=== PATIENT | female | born 1955 | race Caucasian/White ===

== ENCOUNTER 2018-01-02 13:00 | Outpatient (RCR) | payer BC, SELFPAY ==
--- NOTE | 2017-12-13 15:32 | PTTR_ITS ---
DATE: 12/13/17 SUBJECTIVE: Cathy indicates that she continues to note good improvement being made with her right shoulder. Unfortunately, has had increased irritation in the left buttock over the past few days. Was in hopes of receiving dry needling today, but due to scheduling issues this was not a possibility. OBJECTIVE: Manual therapy: ([id number]). Mobs of the right glenohumeral jt while in supine. Mobs did include inferior and posterior glides, caudal and lateral distractions as well as P/AAROM throughout all planes. TFM was applied to the anterior cuff as well as prone position TP work throughout the upper traps, rhomboids and positional release to the posterior cuff. This was mildly sensitive upon palpation per subjective report. Brief TP work to the left piriformis and glute as well as PA mobs throughout the lumbar vertebrae at Grades 1 and 2 and supine position leg pull on the left at no charge. Therapeutic procedures ([id number]). * x See flow sheet: focus was on scap stabs and cuff strengthening, per protocol. * Verbal and tactile cues were provided throughout today's session for proper positioning and isolation of specific muscles. She did decline the need for cryotherapy at the end of today's session indicating she'd do so at home. Direct treatment time: 50 min. 10 min. of non billable time. Total treatment time: 60 min. SG/gc
--- NOTE | 2017-12-17 14:19 | PTTR_ITS ---
DATE: 12/17/17 SUBJECTIVE: Cathy reports her shoulder is holding up well, but her back is causing her more discomfort (sciatica in the left LE). Had a difficult time driving 20 minutes from her home to P.T. secondary to increasing left sided radiculopathy. She is going to contact Dr. Fuchs who told her he would be willing to order a MRI for her back. We discussed a consultation with [facility], as well as a possible consultation with [facility]. OBJECTIVE: Still has (+) dural tension testing with SLR and slump tests. She admits to not being very compliant with her extension exercises. She is hesitant to perform a prone press up secondary to shoulder irritation, but can certainly perform a prone on elbows without limitations. We discussed resumption of this. Will have her work on prone on elbows; 45 seconds x5 incorporating internal rotation of bilateral LEs to decrease muscle guarding through the glutes. Therapeutic procedures ([id number]). * x See flow sheet: She then rec'd integrated dry needling. She gave verbal consent to receive dry needling today. Homeostatic points used: bilateral superior cluneal 3, bilateral inferior gluteal 3, left saphenous and tibial 2, para vertebrals L3 through L5 2 ( this is bilaterally) Symptomatic points: 2 glute medius and 2 piriformis with 3 needles on the left. She also rec'd estim for needle activation, connecting left L3 to sural homeostatic point with a 2 as well as right L3 to L5 x8 minutes. She went on to complete a ther-ex routine focusing on rotator cuff strengthening. Still 4-/5 external rotation strength. 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 Direct treatment time: 15 min. Total treatment time: 30 min. Assessment: Shoulder is progressing well. Still some external rotation strength deficits, which is to be expected post up cuff repair. Internal rotation and flexion are improving with less scapular substitution, although remains present with end range flexion on the right. Needs to be more compliant with her HEP, which was discussed. Plan: Continue 2x per week this week decreasing to 1x per week starting next week. Will need to make sure we review her HEP well so she has a good understanding of her scapular stabilization and external rotation strengthening as we start weaning from formal P.T. MM/gc
--- NOTE | 2017-12-21 15:28 | PTTR_ITS ---
DATE: 12/21/17 SUBJECTIVE: Cathy indicates that she continues to do well with her right shoulder. Hasn't contacted Dr. Fuchs regarding the left hip pain. Has been doing better since having the dry needling last session, but admits she is limited in her activity level due to fear of re aggravating this area. OBJECTIVE: Manual therapy: ([id number]). Did receive mobs of the right glenohumeral joint while in supine. Mobs included inferior and posterior glides, caudal distractions and AAROM throughout all planes. PNF D1/D2 patterns were performed AA x10 repetitions each as well as positional release techniques to the posterior cuff. TP work to the upper traps, rhomboids and brief TFM to the anterior cuff were also performed. Therapeutic procedures ([id number]). * x HEP review: * x See flow sheet: focus was on scapular stabilization and cuff strengthening per rotator cuff protocol Patient will transition to 1x per week P.T. services. She does appear to have a good understanding of her HEP. Verbal and tactile cues were provided throughout today's session for proper positioning and isolation of specific muscles. Ended with cryotherapy x10 min. to the right shoulder while seated at no charge. Direct treatment time: 50 minutes. Total treatment time: 60 minutes. SG/gc
--- NOTE | 2017-12-25 10:00 | PTTR_ITS ---
DATE: 12/25/17 SUBJECTIVE: Arrived to dept a day early indicating she mixed up her appointment days, but asked to be seen due to extreme left hip pain which came back on Sunday for no known reason. Dr. Fuchs is on vacation, so has requested that Dr. Blackmon order MRI of low back / left hip due to this being the original plan with Dr. Fuchs. States that Dr. Blackmon is in agreement with this plan and will be in touch with Cathy regarding MRI date. OBJECTIVE: Manual therapy: ([id number]). Began session with left leg pulls in supine and prone STM throughout the left low back and glut/ piriformis regions. Utilized tendon massage along the lower thoracic / lumbar vertebrae, iliac crest and sacral border / posterior greater trochanter regions. TPM / PRT to left piriformis, glut med / max and QL with care taken to avoid radicular symptoms in left hamstring region. Mobilization of right chela-hum jt while in supine consisting of inferior / posterior glides, caudal and lateral distraction and P/AA/AROM throughout all planes. Performed TFM to anterior cuff, PRT to posterior cuff and brief TPM to upper traps / lev scap. Applied Kinesio tape to left buttock and hamstring region for sciatic pain while in standing. (2 full strips) Therapeutic procedures ([id number]). * x See flow sheet: Focus on rotator cuff protocol. Performed 15 minutes of wellness with assistive personnel at no charge. * x Provided skilled instruction in proper exercise performance * x Provided skilled manual cues to facilitate proper muscle recruitment and/ or movement pattern * x Electrical Stim Unattended - [id number]: Received IFC with spot cold to left buttock and low back with global MHP to remaining mid to low back x 15 minutes while in prone. To let us know if Kinesio tape was helpful. Will educate patient's in application of taping if beneficial. Patient is to remove tape in 2-3 days to avoid skin irritation. Ended session with cryotherapy x 10 minutes to right shoulder while in supine with legs on wedge pillow. Continue with 1x per week PT visits. Direct treatment time: 45 minutes Total treatment time: 95 minutes
--- NOTE | 2018-01-01 10:21 | NT_ITS ---
Patient was phoned today as she missed her appointment. When she stopped by the other day to review her POC she vocalized she thought her appointment was on Sunday, therefore likely did not show up because she thought her appointment wasn't til tomorrow. DULCE/gc
--- NOTE | 2018-01-02 13:00 | NT_ITS ---
01/02/18 Began MSP with client today for continued strengthening of Right shoulder / UE. Instructed in exercise set ups and documentation of exercises., as per discussion with supervising PT. MSP to be performed for 1 month. Patient is seeing Dr. Fuchs on . Given written instructions for upgraded HEP, see copy in client's chart. Continuing to await insurance authorization for MRI of back, but still very uncomfortable with left hip. Bethany Jordan, SKILLS AUDITOR
== END 2018-01-11 23:59 | disposition home or self-care (01) ==
LOC: PT 13:00
PROVIDERS: PCP Family Medicine; Referring Provider Physician Assistant; Visit Provider Physician Assistant
DX: M54.41 Lumbago with sciatica, right side (principal); M51.16 Intervertebral disc disorders with radiculopathy, lumbar region; M75.111 Incomplete rotator cuff tear or rupture of right shoulder, not specified as traumatic; M19.011 Primary osteoarthritis, right shoulder
CPT/HCPCS: 97014; 97110; 97140

== ENCOUNTER → 2018-01-09 01:48 | Outpatient (CLI) | payer BC, SELFPAY ==
--- NOTE | 2018-01-09 14:20 | DI.REPORT_ITS ---
SYMPTOMS/DIAGNOSIS: LEFT LOWER BACK AND LEFT LEG PAIN, LUMBAR RADICULOPATHY, M54.16, NO IMPROVEMENT S/P PHYSICAL THERAPY LUMBAR MRI: T1 and T2 sagittal, and T1 STIR sagittal, and T1 axial, and T2 axial and T2 axial MSMA pulse sequences were performed. The bony signal is normal. At T12- L1, the disc is intact with no evidence of protrusion. The facet joints are well maintained. There is no evidence of spinal stenosis. At L1-2, there disc is intact. The facet joints are well maintained. There is no evidence of spinal stenosis. At L2-3, there is no evidence of a disc herniation. The facet joints are intact. There is no evidence of spinal stenosis. At L3-4, diminished disc signal would be consistent with partial desiccation. There is perhaps a minimal disc bulge. Mild facet joint degenerative changes are demonstrated and there is no evidence of spinal stenosis. At L4-5, there is slight disc space narrowing and diminished disc signal consistent with partial desiccation. There is no evidence of a disc herniation. Prominence of the ligamentum flavum is identified and there are moderately severe facet joint degenerative changes. There is no evidence of significant spinal stenosis. At L5-S1, there appears to be a small left-sided disc herniation with at least partial effacement of the left lateral recess and compression of the adjacent S1 nerve root. There is severe facet joint DJD. There is no evidence of central or right foraminal stenosis. There is no intrinsic abnormality involving the lower dorsal cord, conus or filum terminale. SUMMARY: There is evidence of degenerative disc disease as described above and there is a small left-sided L5-S1 disc herniation with resultant moderate left foraminal stenosis.
== END ==
PROVIDERS: PCP Family Medicine; Visit Provider Family Medicine
DX: M54.16 Radiculopathy, lumbar region (principal); M51.16 Intervertebral disc disorders with radiculopathy, lumbar region
CPT/HCPCS: 72148

== ENCOUNTER 2018-01-19 13:12 | Emergency (ER) | payer BC, SELFPAY ==
[2018-01-19 13:20] VITALS: BP 159/79; PULSE 80; RESP 16; TEMP 36.5
--- NOTE | 2018-01-19 15:32 | W.ED.GENAD ---
Discharge Plan Disposition Patient Disposition: HOME Condition: Fair Discharge Details Chief Complaint: Nk/Back Pain Clinical Impression: Sciatica Reason For Visit: sciatica pain Primary Care Provider: Allie Blackmon ED Provider: Teagan Ma Home Meds and New Rx's Prescriptions: New oxycodone 5 mg capsule 5 mg PO Q6H PRN (Reason: pain) Qty: 6 RF: 0 prednisone 20 mg tablet 40 mg PO DAILY Qty: 10 RF: 0 Continue chlorthalidone 25 MG tablet 1 tab PO DAILY Qty: 90 RF: 12 polyethylene glycol 3350 [Miralax] 17 GM powder in packet 17 g PO DAILY PRNQty: 255 RF: 0 venlafaxine [Effexor XR] 150 MG capsule,extended release 24hr 150 mg PO DAILY Qty: 90 RF: 12 budesonide-formoterol [Symbicort] 10.2 GM HFA aerosol inhaler 2 puff Inhalation DAILY Qty: 3 RF: 12 gabapentin 300 MG capsule 300 mg PO HS Qty: 90 RF: 11 metformin 500 MG tablet,ER martha.retention 24 hr 500 mg PO BID Qty: 60 RF: 11 ibuprofen 600 MG tablet 600 mg PO TID Qty: 30 RF: 1 oxycodone 5 MG capsule 5 mg PO HS Qty: 14 RF: 0 acetaminophen [Acetaminophen Extra Strength] 500 MG tablet 1,000 mg PO Q8H PRN PRNQty: 60 RF: 3 acetaminophen [Acetaminophen Extra Strength] 500 mg Tablet 1,000 mg PO PRN PRNRF: 0 Discharge Instructions Instructions: Sciatica (ED) Additional Instructions: Encourage hydration. Continue with home exercises advised by physical therapy. Please continue with topical options to help with her discomfort. Remains Tylenol and/or ibuprofen as needed for discomfort. You may take 1000 mg of Tylenol every 6 hours with a max of 4000 mg daily. You may take 600 milligrams of ibuprofen every 6 hours. Oxycodone as prescribed. Please keep this in a safe place. Take only as directed. Begin prednisone daily as prescribed. If you develop fever/chills, increased pain, change in sensation of her extremities, change in bladder or bowel habits or other new/worsening symptoms please seek care urgently once again. Otherwise, please follow-up with pain management as previously scheduled as well as primary care Referrals: Allie Blackmon MD, [place] [Primary Care Provider] - Discharge Data Discharge Date/Time-TO BE ENTERED AT DEPARTURE: 01/19/18 16:15 Medical Decision Making MDM Narrative Medical decision making narrative: Patient presents today with chief complaint of left sciatic pain. Patient is followed by Dr. sanches 10. I did review the PDN P. In the past year, patient has received 2 prescriptions for oxycodone. 1 [address] hyatt recently as was reported by the patient. The other was postsurgical from the spring with Dr. Fuchs. On exam, patient does appear uncomfortable. She is listing to the right and preferring to hold the left leg slightly elevated to help with her discomfort. I was able to exacerbate her discomfort with palpation under the left gluteus well as the left buttock. She reports that this caused more shooting motion discomfort and altered sensation in the posterior aspect of the leg. No saddle paresthesias. She has good strength in the left lower extremity compared to the contralateral side. She denies any incontinence. Denies any feelings of retention. No recent trauma. No fevers or chills. Patient has had MRI showing pathology impinging on her left sciatic nerve per patient report. Patient is noted to be slightly hypertensive with a blood pressure 159/79, otherwise the patient vital signs are within normal limits. Took ibuprofen at 11:00 today, Tylenol at 07 30. Patient has history of hypertension, GERD, COPD, JESSICA We will give the patient IM Dilaudid and oral Tylenol. After reviewing LIEUTENANT SHIFT SUPERVISOR and evaluated the patient, I feel that a repeat dosing of her oxycodone is appropriate at this time. I also gave her prescription for steroids. Patient does report that she did feel improved after steroids in September 2017. She has not been reduced since then. Does report that she did feel slightly improved for a few weeks following. Patient I discussed the risk/benefits of steroids as well as narcotics. She is given strict usage precautions. She signed narcotic form. She will be prescribed steroids. Encouraged hydration and that she continue with PT exercises. Advised she keep appiontment this week with pain management. All of her questions and concerns were addressed, she is in agreement with this plan. HPI - General Adult General Mode of arrival: ambulatory. Date/Time Provider Initiated Documentation: 01/19/18 14:04. Limitations to Documentation: no limitations. Information obtained by: patient. HPI Narrative: Patient is a 62-year-old female presenting today with chief complaint of left-sided sciatica pain. Patient has been followed by her primary care for this since August. Reports has been waxing and waning but has been fairly steady over the past 8 weeks. She reports she has tried physical therapy, dry needle, TENS unit, muscle relaxers, steroids, Tylenol, ibuprofen. It was most recently in oxycodone which she found quite helpful. Reports that she has run out of this. Patient has an appointment upcoming with pain management this week. She also has referral sent to [facility] to speak with cardiac exercise specialist. However, she reports that aspect today is scheduling up to February for new patients. She reports that she did undergo an MRI which showed L5-S1 disc protrusion onto the left sciatic nerve. Reports that the radiating pain goes down the left buttock into the left calf. States that this morning it was into the left foot but that at this time it is back up towards the calf. She denies any altered sensation. Denies any change in bowel or bladder habits. She does report that she has been trying to keep her stools quite soft sitting for prolonged times in the toilet does increase her discomfort. Denies any fevers or chills. No recent trauma. Related Data Home Medications Medication Instructions Recorded Confirmed polyethylene glycol 3350 [Miralax] 17 g PO DAILY PRN #255 gm 11/08/17 01/19/18 acetaminophen [Acetaminophen Extra 1,000 mg PO PRN PRN 01/19/18 01/19/18 Strength] Previous Rx's Medication Instructions Recorded acetaminophen [Acetaminophen Extra 1,000 mg PO Q8H PRN PRN #60 tablet 08/28/17 Strength] oxycodone 5 mg PO Q6H PRN #6 cap 01/19/18 prednisone 40 mg PO DAILY #10 tab 01/19/18 Allergies Allergy/AdvReac Type Severity Reaction Status Date / Time No Known Allergies Allergy Unverified 01/19/18 13:28 General Stated Complaint: Nk/Back Pain JUSTYNA: 4 Review of Systems Constitutional Reports as per HPI, Denies chills, Denies fever(s), Denies headache(s) and Denies increased appetite Eyes Patient Denies change in vision ENT Denies headache(s) Cardiovascular Denies chest pain, Denies chest pain with activity, Denies diaphoresis, Denies edema and Denies dyspnea Respiratory Denies cough and Denies dyspnea Gastrointestinal Reports system reviewed and no additional complaints, except as docu Genitourinary Reports as per HPI, Denies dysuria, Denies flank pain, Denies urinary incontinence, Denies urinary hesitancy and Denies urinary urgency Musculoskeletal Reports as per HPI, Reports abnormal gait (-antalgic gait), Denies numbness and Denies tingling Integumentary/Breasts Denies rash Neurologic Reports as per HPI, Reports abnormal gait (-antalgic gait), Denies headache(s), Denies numbness, Reports radicular pain and Denies tingling PFSH Family History Mother Diabetes Essential hypertension Dementia Depression Heart disease Father Diabetes Essential hypertension Heart disease Brother No problems noted. Brother Essential hypertension Depression Hyperlipidemia Grandmother Diabetes Essential hypertension Heart disease Brother Essential hypertension Heart disease Grandfather No problems noted. Grandfather Heart disease Grandmother Cerebrovascular accident Son No problems noted. Son Heart disease Mental disorder Brother Heart disease Brother No problems noted. Medical History COPD (chronic obstructive pulmonary disease) GERD (gastroesophageal reflux disease) HTN (hypertension) JESSICA (obstructive sleep apnea) Social History Smoking/Tobacco Use Status: Former Tobacco Use Surgical History Arthroscopy, Shoulder Biopsy of breast Colonoscopy - MAC (01/28/16) Hysterectomy, Laproscopic (~1980) Oophrectomy, Left Exam Const General: cooperative, healthy appearing, well developed and acute distress (patient appears uncomfortable, is leaning to the right and keeping weight off of the left foot) Nutritional Appearance: overweight Orientation: alert Neck Neck: normal visual inspection and full ROM Resp Effort & Inspection: normal respiratory effort, able to speak in complete sentences and no respiratory distress Auscultation: clear to auscultation bilaterally Cardio Rate: regular rate Rhythm: regular rhythm Heart Sounds: S1 normal and S2 normal GI Inspection: normal to inspection Palpation: soft, not firm, no guarding, not rigid and nontender Back/Spine/Pelvis Back: no CVA tenderness, No mass, No warmth, No ecchymosis, back tenderness (Patient has discomfort with palpation primarily of the low lumbar and sacral area of the spine. Pain is worse with palpation over the left gluteus. Palpation under the left gluteal fold increases radiating symptoms.) and No Boggs-Nair sign present Cervical Spine: normal cervical lordosis Thoracic/Lumbar Spine: No mass and No thoraco-lumbar spasm Pelvis: no pain with anterior-posterior compression, no buttock ecchymosis, buttock tenderness (as above) on the left and no buttock swelling Sacroiliac joints: on the left tender to palpation Sacrum: no ecchymosis, no erythema, no swelling and tenderness Coccyx: no swelling Skin General skin exam: no rashes or lesions noted Neuro General: alert and awake Cognition: normal cognition Speech: speech normal Gait: antalgic Motor: muscle tone normal throughout and strength 5/5 throughout (5/5 in lower extremities) Sensory Exam: no sensory deficits noted (no saddle paresthesias noted) Extrem General: normal to inspection Psych Appearance: grossly normal and well kempt Mental Status: mental status grossly normal Speech and Movement: speech and movement normal Mood: congruent mood Affect: normal affect Attitude: cooperative Thought Process: normal Course Vital Signs Temperature 36.5 C 01/19/18 13:20 Pulse 80 01/19/18 13:20 Respiratory Rate 16 01/19/18 13:20 Blood Pressure 159/79 H 01/19/18 13:20 Temperature 36.5 C 01/19/18 13:20 Pulse 80 01/19/18 13:20 Respiratory Rate 16 01/19/18 13:20 Blood Pressure 159/79 H 01/19/18 13:20
--- NOTE | 2018-01-19 15:37 | ED.GENADUL_ITS ---
Discharge Plan Disposition Patient Disposition: HOME Condition: Fair Discharge Details Chief Complaint: Nk/Back Pain Clinical Impression: Sciatica Reason For Visit: sciatica pain Primary Care Provider: Allie Blackmon ED Provider: Teagan Ma Home Meds and New Rx's Prescriptions: New oxycodone 5 mg capsule 5 mg PO Q6H PRN (Reason: pain) Qty: 6 RF: 0 prednisone 20 mg tablet 40 mg PO DAILY Qty: 10 RF: 0 Continue chlorthalidone 25 MG tablet 1 tab PO DAILY Qty: 90 RF: 12 polyethylene glycol 3350 [Miralax] 17 GM powder in packet 17 g PO DAILY PRNQty: 255 RF: 0 venlafaxine [Effexor XR] 150 MG capsule,extended release 24hr 150 mg PO DAILY Qty: 90 RF: 12 budesonide-formoterol [Symbicort] 10.2 GM HFA aerosol inhaler 2 puff Inhalation DAILY Qty: 3 RF: 12 gabapentin 300 MG capsule 300 mg PO HS Qty: 90 RF: 11 metformin 500 MG tablet,ER martha.retention 24 hr 500 mg PO BID Qty: 60 RF: 11 ibuprofen 600 MG tablet 600 mg PO TID Qty: 30 RF: 1 oxycodone 5 MG capsule 5 mg PO HS Qty: 14 RF: 0 acetaminophen [Acetaminophen Extra Strength] 500 MG tablet 1,000 mg PO Q8H PRN PRNQty: 60 RF: 3 acetaminophen [Acetaminophen Extra Strength] 500 mg Tablet 1,000 mg PO PRN PRNRF: 0 Discharge Instructions Instructions: Sciatica (ED) Additional Instructions: Encourage hydration. Continue with home exercises advised by physical therapy. Please continue with topical options to help with her discomfort. Remains Tylenol and/or ibuprofen as needed for discomfort. You may take 1000 mg of Tylenol every 6 hours with a max of 4000 mg daily. You may take 600 milligrams of ibuprofen every 6 hours. Oxycodone as prescribed. Please keep this in a safe place. Take only as directed. Begin prednisone daily as prescribed. If you develop fever/chills, increased pain, change in sensation of her extremities , change in bladder or bowel habits or other new/worsening symptoms please seek care urgently once again. Otherwise, please follow-up with pain management as previously scheduled as well as primary care Referrals: Allie Blackmon MD, [place] [Primary Care Provider] - Discharge Data Discharge Date/Time-TO BE ENTERED AT DEPARTURE: 01/19/18 16:15 Medical Decision Making MDM Narrative Medical decision making narrative: Patient presents today with chief complaint of left sciatic pain. Patient is followed by Dr. sanches 10. I did review the PDN P. In the past year, patient has received 2 prescriptions for oxycodone. [address] hyatt recently as was reported by the patient. The other was postsurgical from the spring with Dr. Fuchs. On exam, patient does appear uncomfortable. She is listing to the right and preferring to hold the left leg slightly elevated to help with her discomfort. I was able to exacerbate her discomfort with palpation under the left gluteus well as the left buttock. She reports that this caused more shooting motion discomfort and altered sensation in the posterior aspect of the leg. No saddle paresthesias. She has good strength in the left lower extremity compared to the contralateral side. She denies any incontinence. Denies any feelings of retention. No recent trauma. No fevers or chills. Patient has had MRI showing pathology impinging on her left sciatic nerve per patient report. Patient is noted to be slightly hypertensive with a blood pressure 159/79, otherwise the patient vital signs are within normal limits. Took ibuprofen at 11:00 today, Tylenol at 07 30. Patient has history of hypertension, GERD, COPD, JESSICA We will give the patient IM Dilaudid and oral Tylenol. After reviewing [facility] and evaluated the patient, I feel that a repeat dosing of her oxycodone is appropriate at this time. I also gave her prescription for steroids. Patient does report that she did feel improved after steroids in September 2017. She has not been reduced since then. Does report that she did feel slightly improved for a few weeks following. Patient I discussed the risk/ benefits of steroids as well as narcotics. She is given strict usage precautions. She signed narcotic form. She will be prescribed steroids. Encouraged hydration and that she continue with PT exercises. Advised she keep appiontment this week with pain management. All of her questions and concerns were addressed, she is in agreement with this plan. HPI - General Adult General Mode of arrival: ambulatory . Date/Time Provider Initiated Documentation: 01/19/18 14:04 . Limitations to Documentation: no limitations . Information obtained by: patient . HPI Narrative: Patient is a 62-year-old female presenting today with chief complaint of left-sided sciatica pain. Patient has been followed by her primary care for this since August. Reports has been waxing and waning but has been fairly steady over the past 8 weeks. She reports she has tried physical therapy, dry needle, TENS unit, muscle relaxers, steroids, Tylenol, ibuprofen. It was most recently in oxycodone which she found quite helpful. Reports that she has run out of this. Patient has an appointment upcoming with pain management this week. She also has referral sent to [facility] to speak with telecommunications specialist. However, she reports that aspect today is scheduling up to February for new patients. She reports that she did undergo an MRI which showed L5-S1 disc protrusion onto the left sciatic nerve. Reports that the radiating pain goes down the left buttock into the left calf. States that this morning it was into the left foot but that at this time it is back up towards the calf. She denies any altered sensation. Denies any change in bowel or bladder habits. She does report that she has been trying to keep her stools quite soft sitting for prolonged times in the toilet does increase her discomfort. Denies any fevers or chills. No recent trauma. Related Data Home Medications Medication Instructions Recorded Confirmed polyethylene glycol 3350 [Miralax] 17 g PO DAILY PRN #255 gm 11/08/17 01/19/18 acetaminophen [Acetaminophen Extra 1,000 mg PO PRN PRN 01/19/18 01/19/18 Strength] Previous Rx's Medication Instructions Recorded acetaminophen [Acetaminophen Extra 1,000 mg PO Q8H PRN PRN #60 tablet 08/28/17 Strength] oxycodone 5 mg PO Q6H PRN #6 cap 01/19/18 prednisone 40 mg PO DAILY #10 tab 01/19/18 Allergies Allergy/AdvReac Type Severity Reaction Status Date / Time No Known Allergies Allergy Unverified 01/19/18 13:28 General Stated Complaint: Nk/Back Pain JUSTYNA: 4 Review of Systems Constitutional Reports as per HPI, Denies chills, Denies fever(s), Denies headache(s) and Denies increased appetite Eyes Patient Denies change in vision ENT Denies headache(s) Cardiovascular Denies chest pain, Denies chest pain with activity, Denies diaphoresis, Denies edema and Denies dyspnea Respiratory Denies cough and Denies dyspnea Gastrointestinal Reports system reviewed and no additional complaints, except as docu Genitourinary Reports as per HPI, Denies dysuria, Denies flank pain, Denies urinary incontinence, Denies urinary hesitancy and Denies urinary urgency Musculoskeletal Reports as per HPI, Reports abnormal gait (-antalgic gait), Denies numbness and Denies tingling Integumentary/Breasts Denies rash Neurologic Reports as per HPI, Reports abnormal gait (-antalgic gait), Denies headache(s), Denies numbness, Reports radicular pain and Denies tingling PFSH Family History Mother Diabetes Essential hypertension Dementia Depression Heart disease Father Diabetes Essential hypertension Heart disease Brother No problems noted. Brother Essential hypertension Depression Hyperlipidemia Grandmother Diabetes Essential hypertension Heart disease Brother Essential hypertension Heart disease Grandfather No problems noted. Grandfather Heart disease Grandmother Cerebrovascular accident Son No problems noted. Son Heart disease Mental disorder Brother Heart disease Brother No problems noted. Medical History COPD (chronic obstructive pulmonary disease) GERD (gastroesophageal reflux disease) HTN (hypertension) JESSICA (obstructive sleep apnea) Social History Smoking/Tobacco Use Status: Former Tobacco Use Surgical History Arthroscopy, Shoulder Biopsy of breast Colonoscopy - MAC (01/28/16) Hysterectomy, Laproscopic (~1980) Oophrectomy, Left Exam Const General: cooperative, healthy appearing, well developed and acute distress ( patient appears uncomfortable, is leaning to the right and keeping weight off of the left foot) Nutritional Appearance: overweight Orientation: alert Neck Neck: normal visual inspection and full ROM Resp Effort & Inspection: normal respiratory effort, able to speak in complete sentences and no respiratory distress Auscultation: clear to auscultation bilaterally Cardio Rate: regular rate Rhythm: regular rhythm Heart Sounds: S1 normal and S2 normal GI Inspection: normal to inspection Palpation: soft, not firm, no guarding, not rigid and nontender Back/Spine/Pelvis Back: no CVA tenderness, No mass, No warmth, No ecchymosis, back tenderness ( Patient has discomfort with palpation primarily of the low lumbar and sacral area of the spine. Pain is worse with palpation over the left gluteus. Palpation under the left gluteal fold increases radiating symptoms.) and No Boggs -Nair sign present Cervical Spine: normal cervical lordosis Thoracic/Lumbar Spine: No mass and No thoraco-lumbar spasm Pelvis: no pain with anterior-posterior compression, no buttock ecchymosis, buttock tenderness (as above) on the left and no buttock swelling Sacroiliac joints: on the left tender to palpation Sacrum: no ecchymosis, no erythema, no swelling and tenderness Coccyx: no swelling Skin General skin exam: no rashes or lesions noted Neuro General: alert and awake Cognition: normal cognition Speech: speech normal Gait: antalgic Motor: muscle tone normal throughout and strength 5/5 throughout (5/5 in lower extremities) Sensory Exam: no sensory deficits noted (no saddle paresthesias noted) Extrem General: normal to inspection Psych Appearance: grossly normal and well kempt Mental Status: mental status grossly normal Speech and Movement: speech and movement normal Mood: congruent mood Affect: normal affect Attitude: cooperative Thought Process: normal Course Vital Signs Temperature 36.5 C 01/19/18 13:20 Pulse 80 01/19/18 13:20 Respiratory Rate 16 01/19/18 13:20 Blood Pressure 159/79 H 01/19/18 13:20 Temperature 36.5 C 01/19/18 13:20 Pulse 80 01/19/18 13:20 Respiratory Rate 16 01/19/18 13:20 Blood Pressure 159/79 H 01/19/18 13:20
[2018-01-19] MEDS: HYDROmorphone 2 MG/ML VIAL 1 MG IM (15:40)
[2018-01-19] MEDS: Acetaminophen 500 MG TAB 1000 MG PO (15:45)
== END 2018-01-19 16:15 | disposition home or self-care (01) ==
PROVIDERS: Emergency Provider Physician Assistant; PCP Family Medicine
DX: M54.42 Lumbago with sciatica, left side (principal); I10 Essential (primary) hypertension; J44.9 Chronic obstructive pulmonary disease, unspecified; Z87.891 Personal history of nicotine dependence
CPT/HCPCS: 96372; 99284

== ENCOUNTER 2018-03-19 12:12 | Emergency (ER) | payer BC, SELFPAY ==
[2018-03-19 12:21] VITALS: BP 151/87; PULSE 97; RESP 20; TEMP 36.7; O2SAT 96
[2018-03-19 12:44] LABS: Bilirubin Negative (Negative); Blood Small (Negative); Clarity Clear; Glucose Negative (Negative); Ketones Negative (Negative); Leukocyte Esterase Negative (Negative); Nitrite Negative (Negative); Urobilinogen 0.2 EU/dL (Up TO 0.2); pH 6.5 (5-8)
[2018-03-19 12:58] LABS: Bacteria Moderate HPF (Negative); C & S Indicated? No/Sq. Contamination; Casts Negative LPF (Negative); Crystals Negative HPF (Negative); Epithelial Cells Moderate HPF (Negative); Mucus Trace (Negative); RBC 0-2 (0-2); WBC 0-2 HPF (0-5)
[2018-03-19 13:03] LABS: Abs Immature Grans 0.04 k/cumm (0.0-0.09); Absolute Basophil Count 0.03 k/cumm (0.0-0.2); Absolute Eosinophil Count 0.31 k/cumm (0.0-0.7); Absolute Lymphocyte Count 2.34 k/cumm (1.2-3.4); Absolute Monocyte Count 0.89 k/cumm (0.11-0.7); Basophils % 0.2; Eosinophils % 2.3; HCT 43.3 % (36.0-46.0); HGB 14.1 g/dL (12.0-15.5); Immature Grans % 0.3; Lymphocytes % 17.6; Mean Corp. HGB Concentration 32.6 g/dL (32.0-36.0); Mean Corpuscular Hemoglobin 30.5 pg (27.0-33.0); Mean Corpuscular Volume 93.7 fL (80-95); Mean Platelet Volume 10.3 fL (8.0-11.0); Monocytes % 6.7; Neutrophils % 72.9; Platelet Count 372 x1000/uL (130-400); RBC 4.62 m/cumm (4.00-5.20); RBC Distribution Width 13.2 % (11.7-14.6); White Blood Cell Count 13.31 k/cumm (4.4-10.8)
[2018-03-19] MEDS: Ondansetron 4 MG/2 ML VIAL IVP (13:07)
[2018-03-19] MEDS: MORPHine 10 MG/ML VIAL 4 MG IVP (13:07)
[2018-03-19] MEDS: Normal Saline 1,000 ML 1000 ML IV (13:07)
[2018-03-19 13:16] LABS: ALT 65 U/L (12-78); AST 30 U/L (15-37); Albumin 3.5 g/dL (3.4-5.0); Alkaline Phosphatase 109 U/L (46-116); Anion Gap 11.4 mmol/L (3-11); BUN 23 mg/dL (7-18); Bilirubin, Total 0.2 mg/dL (0.2-1.0); CO2 29.6 mmol/L (21.0-32.0); CREATININE 0.82 mg/dL (0.55-1.02); Calcium 9.6 mg/dL (8.5-10.1); Chloride 101 mmol/L (98-107); Glucose 157 mg/dL (70-100); Lipase 87 U/L (73-393); Potassium 3.1 mmol/L (3.5-5.1); Sodium 142 mmol/L (136-145)
[2018-03-19] MEDS: Omnipaque 350 MG/ML 100 ML BTL IJ (13:44)
--- NOTE | 2018-03-19 13:49 | W.ED.GENAD ---
Discharge Plan Disposition Patient Disposition: HOME Condition: Stable Discharge Details Chief Complaint: Abd Prob Clinical Impression: Diverticulitis Primary Care Provider: Allie Blackmon ED Provider: Cheko Peña Home Meds and New Rx's Prescriptions: New metronidazole 500 mg tablet 500 mg PO TID Qty: 21 RF: 0 ciprofloxacin HCl 500 mg tablet 500 mg PO Q12H Qty: 14 RF: 0 Continue potassium chloride 20 mEq tablet extended release 20 meq PO DAILY Qty: 90 RF: 4 chlorthalidone 25 MG tablet 1 tab PO DAILY Qty: 90 RF: 12 polyethylene glycol 3350 [Miralax] 17 GM powder in packet 17 g PO DAILY PRNQty: 255 RF: 0 venlafaxine [Effexor XR] 150 MG capsule,extended release 24hr 150 mg PO DAILY Qty: 90 RF: 12 budesonide-formoterol [Symbicort] 10.2 GM HFA aerosol inhaler 2 puff Inhalation DAILY Qty: 3 RF: 12 gabapentin 300 MG capsule 300 mg PO HS Qty: 90 RF: 11 metformin 500 MG tablet,ER martha.retention 24 hr 500 mg PO BID Qty: 60 RF: 11 ibuprofen 600 MG tablet 600 mg PO TID Qty: 30 RF: 1 acetaminophen [Acetaminophen Extra Strength] 500 MG tablet 1,000 mg PO Q8H PRN PRNQty: 60 RF: 3 No Action ondansetron HCl 8 mg tablet 8 mg PO TID MDD 3 PRN (Reason: nausea and vomiting) Qty: 20 RF: 0 Discharge Instructions Instructions: Diverticulitis (ED), Diverticulitis Diet (ED) Additional Instructions: Please return to the emergency department immediately for any new or significant worsening symptoms including high fevers or chills, severe worsening of abdominal pain, or other concerns he may have. Otherwise follow-up with your primary care provider next week for reassessment and take meds as prescribed. Referrals: Allie Blackmon MD, [place] [Primary Care Provider] - 03/25/18 10:00 am Discharge Data Discharge Date/Time-TO BE ENTERED AT DEPARTURE: 03/19/18 15:23 Medical Decision Making Patient presenting to the emergency department for chief complaint of abdominal/pelvic pain. Patient states this started about 13 days ago and has slowly worsened over that time. She does state some subjective fever, diarrhea, and some constipation. Physical exam shows a afebrile well-appearing patient that does have some abdominal distention and left-sided abdominal tenderness going all the way to left suprapubic region. Physical exam is otherwise unremarkable. Patient does state some slight urinary incontinence that has been going on for years. Patient did recently have a back surgery. Physical exam of the back is unremarkable and post void bladder scan shows no residual urine. Patient denies any back pain, saddle anesthesia, radiating numbness or tingling. Given abdominal findings on exam I am suspicious of diverticulitis but less likely renal calculi, or other intra-abdominal pathology. Plan to check labs and CT scan. Labs show a mild leukocytosis and are otherwise nondiagnostic, CT scan shows sigmoid diverticulitis without free air or abscess formation. Patient reassessed and states improvement in discomfort and nausea. Given CT scan findings of diverticulitis patient was placed upon Ethan and Minerva and I did talk with patient's primary care provider. Dr. Blackmon and stated that she could see the patient on Sunday. Patient was encouraged to return for any new or significant worsening of symptoms otherwise to follow-up with primary care as arranged. Patient stated that he is comfortable just using [id number] pain medication as needed for discomfort HPI General Mode of arrival: ambulatory. Date/Time Provider Initiated Documentation: 03/19/18 12:20. Limitations to Documentation: no limitations. Information obtained by: patient and RN notes reviewed. History of Present Illness 62 year old F presents to the emergency department with the chief complaint of abd pain, described as moderate, with intensity rated at 4. Quality is described as aching, and is localized to the abdomen and pelvis. Patient started experiencing this day(s) (13) and it has been constant. No relieving factors improve symptom(s), No exacerbating factors reported . Patient notes no other symptoms.. Patient did receive the following treatments prior to arrival, none Related Data Home Medications Medication Instructions Recorded Confirmed acetaminophen [Acetaminophen Extra 1,000 mg PO Q8H PRN PRN #60 tab 08/28/17 03/19/18 Strength] chlorthalidone 1 tab PO DAILY #90 tab 10/11/17 03/19/18 budesonide-formoterol [Symbicort] 2 puff INHALATION DAILY #3 disk 11/08/17 03/19/18 polyethylene glycol 3350 [Miralax] 17 g PO DAILY PRN #255 gm 11/08/17 03/19/18 venlafaxine [Effexor XR] 150 mg PO DAILY #90 tab-cap 11/08/17 03/19/18 gabapentin 300 mg PO HS #90 cap 12/06/17 03/19/18 metformin 500 mg PO BID #60 tab-cap 12/06/17 03/19/18 ibuprofen 600 mg PO TID #30 tab-cap 12/31/17 03/19/18 potassium chloride ER 20 mEq 20 meq PO DAILY #90 tab 02/12/18 03/19/18 tablet,extended release ciprofloxacin HCl 500 mg PO Q12H #14 tab 03/19/18 metronidazole 500 mg PO TID #21 tab 03/19/18 ondansetron HCl 8 mg tablet 8 mg PO TID PRN #20 tab MDD 3 03/21/18 Previous Rx's Medication Instructions Recorded acetaminophen [Acetaminophen Extra 1,000 mg PO Q8H PRN PRN #60 tab 08/28/17 Strength] chlorthalidone 1 tab PO DAILY #90 tab 10/11/17 budesonide-formoterol [Symbicort] 2 puff INHALATION DAILY #3 disk 11/08/17 venlafaxine [Effexor XR] 150 mg PO DAILY #90 tab-cap 11/08/17 gabapentin 300 mg PO HS #90 cap 12/06/17 metformin 500 mg PO BID #60 tab-cap 12/06/17 ibuprofen 600 mg PO TID #30 tab-cap 12/31/17 potassium chloride ER 20 mEq 20 meq PO DAILY #90 tab 02/12/18 tablet,extended release ciprofloxacin HCl 500 mg PO Q12H #14 tab 03/19/18 metronidazole 500 mg PO TID #21 tab 03/19/18 ondansetron HCl 8 mg tablet 8 mg PO TID PRN #20 tab MDD 3 03/21/18 Allergies Allergy/AdvReac Type Severity Reaction Status Date / Time No Known Allergies Allergy Unverified 03/19/18 12:34 General Stated Complaint: Abd Prob JUSTYNA: 3 Review of Systems Constitutional Denies chills, Denies fever(s) and Reports malaise Cardiovascular Denies chest pain and Denies dyspnea Respiratory Denies dyspnea Gastrointestinal Reports as per HPI, Reports abdominal pain, Denies melena, Denies change in bowel habits, Reports constipation, Reports diarrhea, Reports nausea and Denies vomiting Genitourinary Denies hematuria, Reports urinary incontinence, Denies urinary hesitancy and Denies urinary urgency Musculoskeletal Denies back pain, Denies numbness, Denies radiating pain into limb and Denies tingling Integumentary/Breasts Denies rash Neurologic Denies numbness and Denies tingling PFSH Family History Mother Diabetes Essential hypertension Dementia Depression Heart disease Father Diabetes Essential hypertension Heart disease Brother No problems noted. Brother Essential hypertension Depression Hyperlipidemia Grandmother Diabetes Essential hypertension Heart disease Brother Essential hypertension Heart disease Grandfather No problems noted. Grandfather Heart disease Grandmother Cerebrovascular accident Son No problems noted. Son Heart disease Mental disorder Brother Heart disease Brother No problems noted. 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) Gastroesophageal reflux disease with esophagitis (Chronic 07/15/12) Essential hypertension (Chronic 03/11/13) Diabetes mellitus (Chronic 12/31/17) Chronic obstructive lung disease (Chronic) 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) Anxiety (Chronic) COPD (chronic obstructive pulmonary disease) GERD (gastroesophageal reflux disease) HTN (hypertension) JESSICA (obstructive sleep apnea) Social History lives independently: Yes current occupational status: employed 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 Smoking/Tobacco Use Status: Former Tobacco Use alcohol intake: current alcohol intake frequency: holidays/special occasions only substance use type: does not use Surgical History H/O lumpectomy (Acute) History of tonsillectomy (Chronic) Arthroscopy, Shoulder Biopsy of breast Colonoscopy - MAC (01/28/16) Hysterectomy, Laproscopic (~1980) Oophrectomy, Left Exam Const General: cooperative Orientation: alert, awake and oriented x3 Resp Effort & Inspection: normal respiratory effort and able to speak in complete sentences Auscultation: clear to auscultation bilaterally Cardio Rate: regular rate Rhythm: regular rhythm Heart Sounds: S1 normal and S2 normal GI Inspection: distended Palpation: soft, no hepatosplenomegaly, not firm, no guarding, no masses, no pulsatile masses, not rigid, no splenomegaly and tender in the LLQ and suprapubicly; not at McBurney's point, Terrell's sign negative and Rovsing's sign negative Auscultation: normal bowel sounds Back/Spine/Pelvis Back: no CVA tenderness Neuro General: alert, awake, oriented x3, gait normal and moves all extremities Course Vital Signs Temperature 36.7 C 03/19/18 12:21 Pulse 97 H 03/19/18 12:21 Respiratory Rate 20 03/19/18 12:21 Blood Pressure 151/87 H 03/19/18 12:21 Pulse Oximetry 96 03/19/18 12:21 Temperature 36.7 C 03/19/18 12:21 Temperature Source Temporal Artery Scan 03/19/18 12:21 Pulse 97 H 03/19/18 12:21 Respiratory Rate 20 03/19/18 12:21 Respiratory Effort Non-Labored 03/19/18 12:21 Blood Pressure 151/87 H 03/19/18 12:21 Blood Pressure Position Sitting 03/19/18 12:21 Pulse Oximetry 96 03/19/18 12:21 Oxygen Delivery Method Room Air 03/19/18 12:21 Oxygen Flow Rate 0 03/19/18 12:21 Pain Level 4 03/19/18 12:21 Lab/Test Results Lab/Test Results: Laboratory Tests Range/Units 03/19/18 03/19/18 03/19/18 12:35 12:59 12:59 WBC (4.4-10.8) k/cumm 13.31 H RBC (4.00-5.20) m/cumm 4.62 Hgb (12.0-15.5) g/dL 14.1 Hct (36.0-46.0) % 43.3 MCV (80-95) fL 93.7 MCH (27.0-33.0) pg 30.5 MCHC (32.0-36.0) g/dL 32.6 RDW (11.7-14.6) % 13.2 Plt Count (130-400) x1000/uL 372 MPV (8.0-11.0) fL 10.3 Immature Gran % 0.3 Neutrophils % 72.9 Lymphocytes % 17.6 Monocytes % 6.7 Eosinophils % 2.3 Basophils % 0.2 Absolute Neutrophils (1.2-6.7) k/cumm 9.70 H Absolute Lymphocytes (1.2-3.4) k/cumm 2.34 Absolute Monocytes (0.11-0.7) k/cumm 0.89 H Absolute Eosinophils (0.0-0.7) k/cumm 0.31 Absolute Basophils (0.0-0.2) k/cumm 0.03 Sodium (136-145) mmol/L 142 Potassium (3.5-5.1) mmol/L 3.1 L Chloride (98-107) mmol/L 101 Carbon Dioxide (21.0-32.0) mmol/L 29.6 Anion Gap (3-11) mmol/L 11.4 H BUN (7-18) mg/dL 23 H Creatinine (0.55-1.02) mg/dL 0.82 Estimated GFR/1.73 m2 (mL/min/1.73m2) >= 60.00 Glucose (70-100) mg/dL 157 H Calcium (8.5-10.1) mg/dL 9.6 Total Bilirubin (0.2-1.0) mg/dL 0.2 AST (15-37) U/L 30 ALT (12-78) U/L 65 Alkaline Phosphatase (46-116) U/L 109 Total Protein (6.4-8.2) g/dL 8.0 Albumin (3.4-5.0) g/dL 3.5 Lipase (73-393) U/L 87 Urine Color (Yellow) Yellow Urine Clarity Clear Urine pH (5-8) 6.5 Ur Specific [place] (1.005-1.025) 1.020 Urine Protein (Negative) mg/dL Negative Urine Ketones (Negative) mg/dL Negative Urine Blood (Negative) Small H Urine Nitrite (Negative) Negative Urine Bilirubin (Negative) Negative Urine Urobilinogen (Up TO 0.2) EU/dL 0.2 Ur Leukocyte Esterase (Negative) Negative Urine RBC (0-2) 0-2 Urine WBC (0-5) HPF 0-2 Ur Epithelial Cells (Negative) HPF Moderate Urine Crystals (Negative) HPF Negative Urine Bacteria (Negative) HPF Moderate Urine Casts (Negative) LPF Negative Urine Mucus (Negative) Trace Ur Culture Indicated? No/sq. contamination Urine Glucose (Negative) mg/dL Negative
--- NOTE | 2018-03-19 13:54 | DI.CT_ITS ---
SYMPTOM/DIAGNOSIS: SUPRAPUBIC, LLQ PAIN ABDOMEN AND PELVIC CT: CT scan of the abdomen and pelvis was performed following the uneventful administration of intravenous contrast material. Findings: No acute findings are seen in the lung bases. The liver is normal in size. No hepatic mass is seen. There are gallstones present. No biliary ductal dilatation is seen. The portal and superior mesenteric veins are patent. The pancreas, spleen, adrenal glands, kidneys, ureters and bladder are all unremarkable. The reproductive organs show no acute abnormality. The abdominal aorta is of normal caliber. No significant abdominal or pelvic adenopathy, ascites or pneumoperitoneum is seen. There are diverticula seen in the sigmoid colon. There is bowel wall thickening and pericolonic inflammatory change seen around the mid sigmoid colon consistent with acute diverticulitis. No evidence of bowel obstruction is seen. The remainder of the bowel is unremarkable. Age appropriate degenerative changes are seen in the spine. IMPRESSION: Findings consistent with acute sigmoid diverticulitis. No evidence of free air or abscess. The findings were discussed with Cheko Peña from the ER on the date of the examination.
[2018-03-19] MEDS: Ciprofloxacin 500 MG TAB PO (14:28)
[2018-03-19] MEDS: metroNIDAZOLE 500 MG TAB PO (14:28)
== END 2018-03-19 15:23 | disposition home or self-care (01) ==
PROVIDERS: Emergency Provider Nurse Practitioner Family; PCP Family Medicine
DX: K57.32 Diverticulitis of large intestine without perforation or abscess without bleeding (principal); E11.9 Type 2 diabetes mellitus without complications; I10 Essential (primary) hypertension; J44.9 Chronic obstructive pulmonary disease, unspecified; Z87.891 Personal history of nicotine dependence; Z79.84 Long term (current) use of oral hypoglycemic drugs
CPT/HCPCS: 36415; 80053; 83690; 96361; 96374; 96375; 99285; 74177; 81003; 81015; 85025; 99284; J2270; J2405; J3490

== ENCOUNTER 2018-05-13 16:23 | Outpatient (REF) | payer BC, SELFPAY | END 2018-05-13 16:43 | LOC: LBN 16:23 | PROVIDERS: PCP Family Medicine; Visit Provider Family Medicine | DX: K57.92 Diverticulitis of intestine, part unspecified, without perforation or abscess without bleeding (principal); R19.7 Diarrhea, unspecified | CPT/HCPCS: 87324 ==

== ENCOUNTER 2018-08-17 13:49 | Emergency (ER) | payer BC, SELFPAY ==
[2018-08-17 14:05] LABS: Bilirubin Negative (Negative); Blood Large (Negative); Clarity Sl Cloudy; Glucose Negative (Negative); Ketones Negative (Negative); Leukocyte Esterase Small (Negative); Nitrite Negative (Negative); Specific Gravity >= 1.030 (1.005-1.025); Urobilinogen 0.2 EU/dL (Up TO 0.2); pH 5.5 (5-8)
[2018-08-17 14:09] VITALS: BP 138/72; PULSE 107; RESP 16; TEMP 36.7; O2SAT 96
--- NOTE | 2018-08-17 14:10 | W.ED.GENAD ---
Discharge Plan Disposition Patient Disposition: HOME Condition: Stable Discharge Details Chief Complaint: Urinary Clinical Impression: UTI (urinary tract infection) Primary Care Provider: Allie Blackmon ED Provider: Tiffany Martinez Home Meds and New Rx's Prescriptions: New cephalexin [Keflex] 500 mg capsule 500 mg PO BID 5 Days Qty: 10 RF: 0 Continued potassium chloride 20 mEq tablet extended release 20 meq PO DAILY Qty: 90 RF: 4 metformin 500 mg tablet,ER martha.retention 24 hr 500 mg PO BID RF: 0 gabapentin 300 mg capsule 300 mg PO HS Qty: 90 RF: 11 Adult Probiotic 3 billion cell capsule 3,000 mmu cells PO HS RF: 0 polyethylene glycol 3350 [Miralax] 17 GM powder in packet 17 g PO DAILY PRNQty: 255 RF: 0 venlafaxine [Effexor XR] 150 MG capsule,extended release 24hr 150 mg PO DAILY Qty: 90 RF: 12 Symbicort 10.2 GM HFA aerosol inhaler 2 puff Inhalation DAILY Qty: 3 RF: 12 chlorthalidone 25 mg tablet 25 mg PO DAILY Qty: 90 RF: 12 ibuprofen 600 mg tablet 600 mg PO TID Qty: 90 RF: 1 acetaminophen [Acetaminophen Extra Strength] 500 MG tablet 1,000 mg PO Q8H PRN PRNQty: 60 RF: 3 Discharge Instructions Instructions: Urinary Tract Infection in Women (ED) Additional Instructions: Take probiotics while you are taking the antibiotics. Take the antibiotics until finished. Follow-up with your primary care doctor next week for reevaluation. Return immediately to the emergency department with any worsening or new concerning symptoms. Discharge Data Discharge Date/Time-TO BE ENTERED AT DEPARTURE: 08/17/18 15:08 Discharge Physician: Tiffany Martinez Medical Decision Making 62-year-old female who presents with urinary incontinence, dysuria, hematuria, urinary urgency, and frequency since this morning. She denies fever, vomiting or abdominal or back pain. Vitals within normal limits. Patient appears nontoxic. Her abdomen is soft and nontender. No CVA tenderness. Discussed with patient that she has no pain, vomiting, does not appear consistent with a kidney stone. Urinalysis notes 10-20 RBCs, 3-5 WBCs, small leukocyte esterase and large blood but appears contaminated. Will obtain a urine culture. Patient was on Cipro and Flagyl several months ago for diverticulitis. She subsequently developed C. difficile colitis and was on vancomycin which she finished 10 days ago. Will treat for UTI with Keflex. Patient instructed that she will be notified of urine culture results if not sensitive to Keflex. She is instructed to follow-up with primary care doctor for reevaluation and to return at any time if worsening symptoms of fever or pain. Medical Records Medical records reviewed: Yes I reviewed the patient's medical records. Lab Data Lab results reviewed: Yes I reviewed the patient's lab results. 08/17/18 14:44 Urine - Clean Catch Urine Culture - Pending Laboratory Tests Range/Units 08/17/18 14:00 Urine Color (Yellow) Yellow Urine Clarity Sl cloudy Urine pH (5-8) 5.5 Ur Specific [place] (1.005-1.025) >= 1.030 H Urine Protein (Negative) mg/dL 100 H Urine Ketones (Negative) mg/dL Negative Urine Blood (Negative) Large H Urine Nitrite (Negative) Negative Urine Bilirubin (Negative) Negative Urine Urobilinogen (Up TO 0.2) EU/dL 0.2 Ur Leukocyte Esterase (Negative) Small H Urine RBC (0-2) 10-20 H Urine WBC (0-5) HPF 3-5 Ur Epithelial Cells (Negative) HPF Many Urine Crystals (Negative) HPF Negative Urine Bacteria (Negative) HPF Few Urine Casts (Negative) LPF Negative Urine Mucus (Negative) Negative Ur Culture Indicated? No/sq. contamination Urine Glucose (Negative) mg/dL Negative HPI General Mode of arrival: ambulatory. Date/Time Provider Initiated Documentation: 08/17/18 13:52. Limitations to Documentation: no limitations. Information obtained by: patient. HPI Narrative: Patient is a 62-year-old female who presents with urinary incontinence, urinary urgency, frequency, hesitancy, dysuria and hematuria since this morning. Patient states she awoke this morning and had a large amount of urinary incontinence. She states after that she urinated and when she wiped she noted bright red blood on the toilet paper. She admits to some nausea but denies any vomiting, fever, abdominal pain or back pain. She states she was treated in particular to colitis with prone to prone Flagyl in March and April 2018. She states due to these antibiotics she developed C. difficile colitis which she finished vancomycin 10 days ago. She states her colitis is now resolved. Related Data Home Medications Medication Instructions Recorded Confirmed acetaminophen [Acetaminophen Extra 1,000 mg PO Q8H PRN PRN #60 tab 08/28/17 08/17/18 Strength] Symbicort 2 puff INHALATION DAILY #3 disk 11/08/17 08/17/18 polyethylene glycol 3350 [Miralax] 17 g PO DAILY PRN #255 gm 11/08/17 08/17/18 venlafaxine [Effexor XR] 150 mg PO DAILY #90 tab-cap 11/08/17 08/17/18 potassium chloride ER 20 mEq 20 meq PO DAILY #90 tab 02/12/18 08/17/18 tablet,extended release chlorthalidone 25 mg tablet 25 mg PO DAILY #90 tab 04/29/18 08/17/18 gabapentin 300 mg capsule 300 mg PO HS #90 cap 06/03/18 08/17/18 ibuprofen 600 mg tablet 600 mg PO TID #90 tab-cap 07/15/18 08/17/18 lactobacillus combination no.8 3 3,000 mmu cells PO HS cap 07/25/18 08/17/18 billion cell capsule metformin ER 500 mg 24 hr 500 mg PO BID tab-cap 07/25/18 08/17/18 tablet,extended release cephalexin [Keflex] 500 mg PO BID 5 Days #10 cap 08/17/18 Previous Rx's Medication Instructions Recorded acetaminophen [Acetaminophen Extra 1,000 mg PO Q8H PRN PRN #60 tab 08/28/17 Strength] Symbicort 2 puff INHALATION DAILY #3 disk 11/08/17 venlafaxine [Effexor XR] 150 mg PO DAILY #90 tab-cap 11/08/17 potassium chloride ER 20 mEq 20 meq PO DAILY #90 tab 02/12/18 tablet,extended release chlorthalidone 25 mg tablet 25 mg PO DAILY #90 tab 04/29/18 gabapentin 300 mg capsule 300 mg PO HS #90 cap 06/03/18 ibuprofen 600 mg tablet 600 mg PO TID #90 tab-cap 07/15/18 cephalexin [Keflex] 500 mg PO BID 5 Days #10 cap 08/17/18 Allergies Allergy/AdvReac Type Severity Reaction Status Date / Time No Known Allergies Allergy Unverified 08/17/18 14:12 General JUSTYNA: 3 Review of Systems Review of Systems All systems reviewed & are unremarkable except as noted in HPI and below Constitutional Reports as per HPI, Denies chills and Denies fever(s) Eyes Denies blurry vision ENT Denies dizziness, Denies sore throat and Denies throat swelling Cardiovascular Denies chest pain and Denies dyspnea Respiratory Denies cough and Denies dyspnea Gastrointestinal Denies abdominal pain, Denies diarrhea and Denies vomiting Genitourinary Reports hematuria, Reports urinary frequency, Reports dysuria, Reports urinary hesitancy and Reports urinary urgency Musculoskeletal Denies back pain and Denies numbness Integumentary/Breasts Denies lesions and Denies rash Neurologic Denies dizziness, Denies focal weakness and Denies numbness Allergic/Immunologic Denies throat swelling [facility] 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) Gastroesophageal reflux disease with esophagitis (Chronic 07/15/12) Essential hypertension (Chronic 03/11/13) Diabetes mellitus (Chronic 12/31/17) Chronic obstructive lung disease (Chronic) 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) Anxiety (Chronic) Abdominal mass (Resolved) Cardiac murmur (Resolved) Compression neuropathy of lower extremity (Resolved) Family history of hypertension (Resolved) Herpes zoster complicated (Resolved) Joint pain of leg (Resolved) Knee pain (Resolved) Other fatigue (Resolved) Other visual disturbances (Resolved) Ovarian cyst, complex (Resolved) Pericarditis (Resolved) Shoulder joint pain (Resolved) Smoker (Resolved) COPD (chronic obstructive pulmonary disease) GERD (gastroesophageal reflux disease) HTN (hypertension) JESSICA (obstructive sleep apnea) Surgical History H/O lumpectomy (Acute) History of tonsillectomy (Chronic) History of oophorectomy, unilateral (Resolved) S/P breast biopsy (Resolved) S/P laparoscopic hysterectomy (Resolved) Arthroscopy, Shoulder Biopsy of breast Colonoscopy - MAC (01/28/16) Hysterectomy, Laproscopic (~1980) Oophrectomy, Left Family History Mother Diabetes Essential hypertension Dementia Depression Heart disease Father Diabetes Essential hypertension Heart disease Brother No problems noted. Brother Essential hypertension Depression Hyperlipidemia Grandmother Diabetes Essential hypertension Heart disease Brother Essential hypertension Heart disease Grandfather No problems noted. Grandfather Heart disease Grandmother Stroke Son No problems noted. Son Heart disease Mental disorder Brother Heart disease Brother No problems noted. Social History Smoking/Tobacco Use Status: Former Tobacco Use Alcohol Intake: current Alcohol Intake frequency: holidays/special occasions only Drug use: Never Substance use type: does not use current occupation: [employer] What type of physical activity do you participate in: none Do you feel safe in your relationship?: Yes Exam Const General: cooperative, healthy appearing and no acute distress HENMT Head: normal to inspection Face and sinus: normal facial exam Eyes General: appearance normal, both eyes and all related structures EOM: EOM intact bilaterally Neck Neck: normal visual inspection and No submandibular swelling Lymphatic: no lymphadenopathy noted Chest Chest: normal inspection of the chest and no tenderness Resp Effort & Inspection: normal respiratory effort and able to speak in complete sentences Auscultation: clear to auscultation bilaterally Cardio Rate: regular rate Rhythm: regular rhythm GI Inspection: normal to inspection Palpation: soft, not firm, not rigid and nontender Auscultation: normal bowel sounds Back/Spine/Pelvis Back: no CVA tenderness Skin General skin exam: no rashes or lesions noted Neuro General: alert, awake and oriented x3 Cognition: normal cognition Speech: speech normal Motor: muscle tone normal throughout Sensory Exam: no sensory deficits noted Extrem General: normal to inspection, full ROM and no edema Psych Appearance: grossly normal Mental Status: mental status grossly normal Speech and Movement: speech and movement normal Affect: normal affect Course Lab/Test Results Lab/Test Results: Laboratory Tests Range/Units 08/17/18 14:00 Urine Color (Yellow) Yellow Urine Clarity Sl cloudy Urine pH (5-8) 5.5 Ur Specific [place] (1.005-1.025) >= 1.030 H Urine Protein (Negative) mg/dL 100 H Urine Ketones (Negative) mg/dL Negative Urine Blood (Negative) Large H Urine Nitrite (Negative) Negative Urine Bilirubin (Negative) Negative Urine Urobilinogen (Up TO 0.2) EU/dL 0.2 Ur Leukocyte Esterase (Negative) Small H Urine Glucose (Negative) mg/dL Negative
[2018-08-17 14:12] LABS: Bacteria Few HPF (Negative); C & S Indicated? No/Sq. Contamination; Casts Negative LPF (Negative); Crystals Negative HPF (Negative); Epithelial Cells Many HPF (Negative); Mucus Negative (Negative)
[2018-08-17 15:10] VITALS: PULSE 100; RESP 16; TEMP 36.7; O2SAT 99
== END 2018-08-17 15:08 | disposition home or self-care (01) ==
PROVIDERS: Emergency Provider Physician Assistant; PCP Family Medicine
DX: N39.0 Urinary tract infection, site not specified (principal)
CPT/HCPCS: 99283; 81003; 81015; 87086

== ENCOUNTER 2018-09-30 03:04 | Outpatient (CLI) | payer BC, SELFPAY ==
--- NOTE | 2018-10-03 10:40 | HOLTER_ITS ---
HOLTER MONITOR DATE OF DICTATION October 03, 2018 INDICATIONS Palpitations. 48-Hour Holter monitor Baseline sinus rhythm. Average heart rate 88 beats per minute. Minimum heart rate 66 beats per minute. Max heart rate 111 beats per minute. Frequent isolated PVCs. No nonsustained VT. Rare isolated PACs. No atrial fibrillation. No significant pauses or viktor arrhythmias. Diary entries including dizziness, flutter, palpitations, heartburn, all predominantly correspond to sinus rhythm and very occasionally to sinus rhythm with isolated PVCs. Mariella Reyes M.D. ROXY/aster T - 10/03/18
== END 2018-09-30 03:24 ==
PROVIDERS: PCP Family Medicine; Visit Provider Family Medicine
DX: R00.2 Palpitations (principal); I49.3 Ventricular premature depolarization; I49.1 Atrial premature depolarization
CPT/HCPCS: 93225

== ENCOUNTER 2018-10-02 17:14 | Outpatient (CLI) | payer BC, SELFPAY | END 2018-10-02 17:34 | PROVIDERS: PCP Family Medicine; Visit Provider Family Medicine | DX: R00.2 Palpitations (principal); I49.3 Ventricular premature depolarization; I49.1 Atrial premature depolarization | CPT/HCPCS: 93226 ==

== ENCOUNTER 2018-11-18 11:40 | Outpatient (CLI) | payer BC, SELFPAY ==
[2018-11-18 13:28] LABS: ALT 55 U/L (12-78); AST 23 U/L (15-37); Albumin 3.8 g/dL (3.4-5.0); Alkaline Phosphatase 103 U/L (46-116); BUN 24 mg/dL (7-18); Bilirubin, Total 0.5 mg/dL (0.2-1.0); CREATININE 0.73 mg/dL (0.55-1.02); Calcium 9.4 mg/dL (8.5-10.1); Calculated LDL 190 mg/dL; Chloride 102 mmol/L (98-107); Cholesterol 288 mg/dL (50-200); Glucose 134 mg/dL (70-100); HDL Cholesterol 42 mg/dL (40-60); Potassium 3.2 mmol/L (3.5-5.1); Sodium 143 mmol/L (136-145); TSH (W/Ref FT4) 1.61 uIU/mL (0.358-3.74); Total Protein 7.7 g/dL (6.4-8.2); Triglyceride 282 mg/dL (30-150)
[2018-11-18 13:53] LABS: Hemoglobin A1C 6.3 % (4.5-6.2)
== END 2018-11-18 12:00 ==
PROVIDERS: PCP Family Medicine; Visit Provider Family Medicine
DX: E11.9 Type 2 diabetes mellitus without complications (principal); I10 Essential (primary) hypertension; R53.83 Other fatigue
CPT/HCPCS: 36415; 80053; 80061; 83721; 83036; 84443

== ENCOUNTER 2018-12-06 01:07 | Outpatient (CLI) | payer BC, SELFPAY ==
--- NOTE | 2018-12-06 07:03 | DI.COMBO_ITS ---
SYMPTOMS/DIAGNOSIS: DIAGNOSTIC, LT BREAST LUMP, N63.20 MAMMOGRAM AND LEFT BREAST ULTRASOUND: Mammograms were interpreted according to the usual protocol including computer analysis with CAD system, tomosynthesis and C view imaging. The patient notes a palpable abnormality in the upper outer left breast. MAMMOGRAM: Mammograms are compared with exams from 2011 through 2017. The breasts are composed of scattered fibroglandular densities, breast density Category B. There is mild scarring in the left breast related to previous breast biopsies. No masses or suspicious calcifications or changes are seen in either breast. LEFT BREAST ULTRASOUND: The palpable abnormality corresponds to a 5 mm in maximal dimension cyst located 6 cm from the nipple. IMPRESSION: Category 2, negative mammogram and left breast ultrasound with benign findings a 5 mm cyst which corresponds to the palpable abnormality. SA ASSESSMENT OF FINDINGS: Negative with benign findings. Category 2. Patient will receive a letter notifying them of these results. BI-RADS category B. There are scattered areas of fibroglandular density.
== END 2018-12-06 01:27 ==
PROVIDERS: PCP Family Medicine; Visit Provider Family Medicine
DX: N63.21 Unspecified lump in the left breast, upper outer quadrant; N60.02 Solitary cyst of left breast
CPT/HCPCS: 76642; 77062; 77066; G0279

== ENCOUNTER 2019-03-31 12:41 | Outpatient (CLI) | payer MEDICARE, SELFPAY ==
[2019-03-31 12:19] LABS: Hemoglobin A1C 5.7 % (4.5-6.2)
[2019-03-31 12:32] LABS: ALT 37 U/L (14-59); AST 15 U/L (15-37); Albumin 4.2 g/dL (3.4-5.0); Alkaline Phosphatase 79 U/L (46-116); Anion Gap 8.8 mmol/L (3-11); BUN 26 mg/dL (7-18); Bilirubin, Total 0.4 mg/dL (0.2-1.0); CO2 32.2 mmol/L (21.0-32.0); CREATININE 0.62 mg/dL (0.55-1.02); Calcium 9.6 mg/dL (8.5-10.1); Calculated LDL 181 mg/dL; Chloride 103 mmol/L (98-107); Cholesterol 259 mg/dL (50-200); Glucose 98 mg/dL (70-100); HDL Cholesterol 46 mg/dL (40-60); Potassium 3.7 mmol/L (3.5-5.1); Sodium 144 mmol/L (136-145); Total Protein 7.8 g/dL (6.4-8.2); Triglyceride 162 mg/dL (30-150)
[2019-03-31 12:37] LABS: COMMENT (LAB VIEW ONLY) 67.17 mg/dL; Microalb ug/mg Crea 16.7 ug/mg Cr
== END 2019-03-31 13:01 ==
PROVIDERS: PCP Family Medicine; Visit Provider Family Medicine
DX: I10 Essential (primary) hypertension (principal); E11.9 Type 2 diabetes mellitus without complications; E78.5 Hyperlipidemia, unspecified; K21.0 Gastro-esophageal reflux disease with esophagitis
CPT/HCPCS: 36415; 80053; 80061; 82043; 82570; 83036

== ENCOUNTER 2019-05-26 09:11 | Outpatient (CLI) | payer MEDICARE, SELFPAY ==
--- NOTE | 2019-05-26 11:36 | DI.CT_ITS ---
EXAM: CT ABDOMEN PELVIS W CLINICAL HISTORY: intermittent abd/pelvic pain and bleeding, abd pain, rectal bleeding,? diverticul itis, R10.9, K62.5, K57 TECHNIQUE: Imaging Protocol: Axial computed tomography images with coronal and sagittal reformatted images were created and reviewed CONTRAST MATERIAL: Intravenous: Omnipaque 350 Contrast volume:100 mL Oral: Yes FINDINGS: ABDOMEN: Lung Bases: Normal where visualized. Liver: Normal density. No measurable mass. Gallbladder and biliary tract: Cholelithiasis. No biliary ductal dilatation. Pancreas: Normal density, no abnormal calcifications or inflammatory process. Spleen: Normal. Kidneys: Normal size, contour and axis. No radiodense stones or obstructive uropathy. No masses seen. Adrenal glands: No masses seen. Abdominal Aorta: Atherosclerosis. No aneurysmal dilatation. PELVIS: Bladder: Symmetric distention, no gross wall thickening. Bowel: Diverticulosis of the colon. No evidence of acute diverticulitis. No evidence of bowel obstr uction. No evidence of acute appendicitis. Peritoneal cavity: No ascites, collection or mesenteric inflammatory response. Bones: Degenerative changes. Reproductive organs: Within normal limits. Lymph nodes: Unremarkable. Impression: 1. Colonic diverticulosis. No evidence of acute diverticulitis. 2. Cholelithiasis. No biliary ductal dilatation. DATA REPOSITORY: All CT scans at this facility are submitted to the National Radiology Data Registry (NRDR) Dose Index Registry (DIR) with the [employer] (ACR). RADIATION OPTIMIZATION: All CT scans at this facility use at least one of these dose optimization te chniques: automated exposure control; mA and/or kV adjustment per patient size (includes targeted exa ms where dose is matched to clinical indication); or iterative reconstruction.
[2019-05-26] MEDS: Omnipaque 350 MG/ML 100 ML BTL IJ (11:42)
== END 2019-05-26 09:31 ==
PROVIDERS: PCP Family Medicine; Visit Provider Family Medicine
DX: R10.2 Pelvic and perineal pain (principal); R10.9 Unspecified abdominal pain; K62.5 Hemorrhage of anus and rectum; K80.20 Calculus of gallbladder without cholecystitis without obstruction; K57.30 Diverticulosis of large intestine without perforation or abscess without bleeding; Z90.710 Acquired absence of both cervix and uterus
CPT/HCPCS: 74177; J3490

== ENCOUNTER 2019-05-27 16:09 | Outpatient (REF) | payer MEDICARE, SELFPAY ==
[2019-05-27 19:34] LABS: Bilirubin Negative (Negative); Blood Trace-intact (Negative); Clarity Clear (Clear); Glucose Negative (Negative); Ketones Negative (Negative); Leukocyte Esterase Negative (Negative); Nitrite Negative (Negative); Specific Gravity 1.015 (1.005-1.025); pH 7.5 (5-8)
[2019-05-27 19:45] LABS: Bacteria Moderate HPF (Negative); C & S Indicated? No; Casts Negative LPF (Negative); Crystals Negative HPF (Negative); Epithelial Cells Many HPF (Negative); Mucus Negative (Negative); Other Cells Rare Renal (Negative); RBC 0-2 HPF (0-2); WBC 0-2 HPF (0-5)
== END 2019-05-27 16:29 ==
LOC: LBN 16:09
PROVIDERS: PCP Family Medicine; Visit Provider Family Medicine
DX: R35.0 Frequency of micturition (principal); R39.15 Urgency of urination
CPT/HCPCS: 81003; 81015

== ENCOUNTER → 2019-06-20 10:57 | Outpatient (BNVA) | payer MEDICARE, SELFPAY | PROVIDERS: PCP Family Medicine; Referring Provider Family Medicine; Visit Provider Surgery | DX: K62.89 Other specified diseases of anus and rectum (principal); E11.9 Type 2 diabetes mellitus without complications; J44.9 Chronic obstructive pulmonary disease, unspecified; Z79.84 Long term (current) use of oral hypoglycemic drugs | CPT/HCPCS: 99203; 99214 ==

== ENCOUNTER 2019-06-25 07:13 | Day surgery (SDC) | payer MEDICARE, SELFPAY ==
--- NOTE | 2019-06-25 06:52 | ROE_ITS ---
Date of service: 06/25/19 Time of Service: 09:37 Operative Note Operative Note DATE OF PROCEDURE: 06/25/19 PRE-OP DIAGNOSIS: Rectal pain Colon Cancer Screening PROCEDURE: 1. Colonoscopy under sedation 2. Exam under anesthesia SURGEON: Joanna Bhardwaj ANESTHESIA: RADHA COMPLICATIONS: None Patient was transported to: PACU Patient's condition: stable Indications: Mrs. Carey is a pleasant 63 year old female who has been experiencing Rectal pain since November of 2018. In the past 2 weeks it has gotten a lot worse. She has chronic constipation which she knows causes some of the pain and issues. She had one episode of bleeding last week. She went to the bathroom and had a hard BM. She then had to go back to the bathroom and passed blood. Most of the time she has blood on the tissue paper. She takes Miralax 5 nights a week, Senna-S 2 x a week and Colace 2 capsules every other night in order to keep her stools soft. She doesn't have any weight loss or abdominal pain. Her last Colonoscopy was in 2015 and was normal. Procedure Description: After informed consent was obtained the patient was taken to the procedure room and placed in a left decubitous position. Monitors were applied and a time out was done. The patients name, date of , procedure, allergies to medications and metal in their body was reviewed. The patient was then sedated. Once sedated and comfortable a rectal exam was done. External exam showed some prolapsed anal tissue. Internal exam revealed a normal sphincter tone and a palpable mass. The scope was then introduced and retro-flexed. Grade 2 internal hemorrhoids were identified as well as a fissure. The scope was then advanced to the cecum without difficulty. The TI and appendiceal orifice were identified. The prep was good. The scope was then slowly retracted over 15 minutes back into the rectum. There were no polyps. There was moderate martinez-diverticulosis noted. The scope was removed. An anoscope was placed and 3 large hemorrhoids at the 5,6 and 7 o'clock position were banded in a standard fashion. The fissure was again noted at the 6 o'clock position. Next Exparel 20 cc mixed 50/50 with 0.25% Bupivocaine was injected circumferentialy and around the fissure for post operative pain control. The patient was woken up and taken back to [facility] in stable condition. The patient tolerated the procedure well and there were no immediate complications.
--- NOTE | 2019-06-25 06:55 | PDOC.DSDIS_ITS ---
Discharge Plan Disposition Patient Disposition: HOME Condition: Good Discharge Details Reason For Visit: RECTAL PAIN / CONSTIPATION Attending Provider: Joanna Bhardwaj Primary Care Provider: Allie Blackmon Home Meds and New Rx's Prescriptions: New hydrocortisone 2.5 % ointment 1 applic TP TID 7 Days Qty: 28.35 RF: 2 lidocaine 5 % ointment 1 applic TP TID PRN (Reason: pain) Qty: 50 RF: 0 Continued escitalopram oxalate 5 mg tablet 5 mg PO DAILY Qty: 90 RF: 4 metformin 500 mg tablet 500 mg PO BID Qty: 180 RF: 5 Adult Probiotic 3 billion cell capsule 3,000 mmu cells PO HS RF: 0 ibuprofen 600 mg tablet 600 mg PO TID PRNRF: 0 docusate sodium 100 mg capsule 200 mg PO .COMPLEX RF: 0 polyethylene glycol 3350 [Miralax] 17 GM powder in packet 17 g PO DAILY PRNQty: 255 RF: 0 budesonide-formoterol [Symbicort] 10.2 GM HFA aerosol inhaler 2 puff Inhalation DAILY Qty: 3 RF: 12 triamcinolone acetonide 0.1 % cream 1 applic TP BID Qty: 80 RF: 0 venlafaxine 37.5 mg capsule,extended release 24hr 37.5 mg PO DAILY Qty: 90 RF: 3 chlorthalidone 25 mg tablet 25 mg PO DAILY Qty: 90 RF: 12 potassium chloride 20 mEq tablet extended release 20 meq PO DAILY Qty: 90 RF: 4 nitroglycerin 0.4 % (w/w) ointment See Rx Instructions [place] BID Qty: 30 RF: 4 acetaminophen [Acetaminophen Extra Strength] 500 MG tablet 1,000 mg PO Q8H PRN PRNQty: 60 RF: 3 Discontinued bisacodyl [Dulcolax (bisacodyl)] 5 mg tablet,delayed release (DR/EC) 5 mg PO ONCE Qty: 4 RF: 0 polyethylene glycol 3350 17 gram powder in packet 255 g PO DAILY Qty: 15 RF: 0 Discharge Instructions Instructions: Anal Fissure (GEN), Rubber Band Ligation (GEN) Additional Instructions: Activity at Home after surgery: 1. Make sure you walk outside at least 4 times per day 2. You should be able to climb a flight of stairs 3. No driving while in pain or taking pain medications 4. No strenuous activity or heavy lifting for 2 weeks (laparoscopic surgery) or 4 weeks (open surgery) Diet, Nutrition, & wound healin. Avoid alcohol until after you are recovered from your surgery 2. Make sure to eat plenty of lean protein (meat, fish, eggs, cottage cheese, beans) 3. Eat a variety of fruits and vegetables. Eat plenty of high fiber foods to avoid constipation. 4. Drink plenty of liquids to stay hydrated and avoid constipation Pain Medications: 1. Tylenol 650 mg every 6 hours as needed and Ibuprofen 600 mg every 6 hours as needed hours 2. If a narcotic has been prescribed take as directed only for breakthrough pain For Constipation: Continue Miralax daily and senna as needed Other: Sitz baths as needed for pain Lidocaine jelly- apply small amount to painful area every 8 hours as needed as needed Hydrocortisone cream to area 3 x a day Please call our office if you develop: 1. Fevers >101.5 2. Nausea or Vomiting 3. Worsening pain 4. Redness and thick discharge from the wounds If after hours please call the Hospital at and ask to speak to the on-call surgeon Referrals: Joanna Bhardwaj MD [ [facility] STAFF PHYSICIAN] - 07/04/19 8:30 am Activity:: Activity as Tolerated Diet:: High Fiber Diet Discharge Orders Discharge Orders: Discharge Order (Routine); Ordered 06/25/19 Ordered By: Joanna Bhardwaj
[2019-06-25 07:37] VITALS: BP 121/86; PULSE 82; RESP 12; TEMP 36.4; O2SAT 95
[2019-06-25] MEDS: Lactated Ringers 1,000 ML 80 ML IV (08:04)
[2019-06-25 10:08] VITALS: BP 133/76; PULSE 68; RESP 16; TEMP 36.4; O2SAT 95
[2019-06-25] MEDS: Hyoscyamine 0.125 MG SL/ORAL/CHEW SL (10:22)
[2019-06-25] MEDS: Ketorolac 15 MG/ML VIAL IVP (10:30)
[2019-06-25] MEDS: Normal Saline Flush 10 ML SYR (10:30)
--- NOTE | 2019-06-25 10:41 | NUR.NOTE ---
C/O abdominal gas pain. Dr. Bhardwaj made aware Medicated as ordered. Up to ambulate with good effect.
== END 2019-06-25 11:30 | disposition home or self-care (01) ==
LOC: SUR 07:13
PROVIDERS: PCP Family Medicine; Visit Provider Surgery
PROC: 0DJD8ZZ Inspection of Lower Intestinal Tract, Via Natural or Artificial Opening Endoscopic (ICD-10-PCS; CPT 45378; principal; 2019-06-25 09:00)
PROC: (CPT 45398; 2019-06-25 09:00)
PROC: (CPT 45398; 2019-06-25 09:00)
DX: K62.89 Other specified diseases of anus and rectum (principal); K64.1 Second degree hemorrhoids; K57.30 Diverticulosis of large intestine without perforation or abscess without bleeding; K21.9 Gastro-esophageal reflux disease without esophagitis; I10 Essential (primary) hypertension; G47.33 Obstructive sleep apnea (adult) (pediatric)
CPT/HCPCS: 45398; J1885; J3490

== ENCOUNTER → 2019-07-04 08:22 | Outpatient (BNVA) | payer MEDICARE, SELFPAY | PROVIDERS: PCP Family Medicine; Referring Provider Family Medicine; Visit Provider Surgery | DX: K60.2 Anal fissure, unspecified (principal); Z48.89 Encounter for other specified surgical aftercare ==

== ENCOUNTER → 2019-07-11 08:38 | Outpatient (BNVA) | payer MEDICARE, SELFPAY | PROVIDERS: PCP Family Medicine; Referring Provider Family Medicine; Visit Provider Surgery | DX: K60.2 Anal fissure, unspecified (principal); Z48.89 Encounter for other specified surgical aftercare | CPT/HCPCS: 99212 ==

== ENCOUNTER → 2019-07-18 12:39 | Outpatient (BNVA) | payer MEDICARE, SELFPAY | PROVIDERS: PCP Family Medicine; Referring Provider Family Medicine; Visit Provider Surgery | DX: Z09 Encounter for follow-up examination after completed treatment for conditions other than malignant neoplasm (principal); K60.2 Anal fissure, unspecified | CPT/HCPCS: 99212 ==

== ENCOUNTER 2019-12-05 03:47 | Outpatient (CLI) | payer MEDICARE, SELFPAY ==
--- NOTE | 2019-12-05 07:47 | DI.CTLCSR_ITS ---
EXAM: CT CHEST LUNG CANCER SCREEN CLINICAL HISTORY: The patient reportedly has a History of Smoking 30 pack years and presently smokes or has quit the past 15 years. TECHNIQUE: Imaging Protocol: Axial computed tomography images with coronal and sagittal reformatted images were created and reviewed COMPARISON: No exams were available for comparison FINDINGS: Tracheobronchial tree: Patent where visualized. Mediastinum and Wendy: No dominant adenopathy or fluid collection. Pulmonary parenchyma: No consolidation or dominant measurable mass. There is scarring in the lung bas es. Lung Nodules: There is a 6 mm nodule in the right lower lobe. There is a 4 mm nodule in the right lo wer lobe. Pleura: No effusion or pneumothorax. Heart: The heart is not dilated. Mild coronary artery calcification. No pericardial effusion. Aorta: Thoracic aorta non-dilated.Mild atherosclerosis. Upper abdomen: Cholelithiasis. Bones: Degenerative changes. Soft Tissues: Unremarkable. IMPRESSION: Two pulmonary nodules in the right lower lobe. The largest measures 6 mm. Lung RADS Cat 3 - Probably Benign: Probably benign finding(s) - short term follow-up suggested; inclu de nodules with a low likelihood of becoming a clinically active cancer. Lung-RADS 1.0 CATEGORIES: Category 0 - Prior chest CT exam(s) being located for comparison. Category 1 - Annual screening in 12 months. No nodules or definitely benign nodules. Category 2 - Annual screening in 12 months. Benign appearance. Nodules with low likelihood of becomin g active cancer. Category 3 - 6-month follow-up. Probably benign. Short-term follow-up suggested. Nodules with low lik elihood of becoming active cancer. Category 4A - 3-month follow-up and CT/PET if >8 mm in size. Suspicious finding. Findings which requi re additional testing. Category 4B - Findings which require additional testing and tissue sampling. Suspicious finding. C Added to Any of the Above - History of prior lung cancer screening. S Added to Any of the Above - Significant unexpected other finding. RADIATION DOSE DELIVERED: Total DLP Total DLP Total DLP DATA REPOSITORY: All CT scans at this facility are submitted to the National Radiology Data Registry (NRDR) Dose Index Registry (DIR) with the [employer] (ACR). RADIATION OPTIMIZATION: All CT scans at this facility use at least one of these dose optimization te chniques: automated exposure control; mA and/or kV adjustment per patient size (includes targeted exa ms where dose is matched to clinical indication); or iterative reconstruction.
== END 2019-12-05 04:07 ==
PROVIDERS: PCP Family Medicine; Visit Provider Family Medicine
DX: F17.210 Nicotine dependence, cigarettes, uncomplicated (principal); Z12.2 Encounter for screening for malignant neoplasm of respiratory organs; R91.8 Other nonspecific abnormal finding of lung field
CPT/HCPCS: G0297

== ENCOUNTER 2019-12-19 02:18 | Outpatient (CLI) | payer MEDICARE, SELFPAY ==
[2019-12-19 12:45] LABS: HCT 46.8 % (36.0-46.0); HGB 15.4 g/dL (11.2-15.7); MCHC 32.9 % (32.0-36.0); MCV 91.1 fL (80-95); MPV 10.3 fL (8.0-11.0); Platelet Count 390 10^3/uL (130-400); RBC 5.14 10^6/uL (3.93-5.22); RDW 12.9 % (11.7-14.6); RDW-SD 42.5 fL; WBC 8.24 10^3/uL (4.4-10.8)
[2019-12-19 13:03] LABS: ALT 38 U/L (14-59); AST 20 U/L (15-37); Alkaline Phosphatase 83 U/L (46-116); BUN 20 mg/dL (7-18); Bilirubin, Total 0.3 mg/dL (0.2-1.0); CREATININE 0.67 mg/dL (0.55-1.02); Calcium 9.9 mg/dL (8.5-10.1); Calculated LDL 208 mg/dL (<100); Chloride 104 mmol/L (98-107); Cholesterol 303 mg/dL (<200); Glucose 106 mg/dL (74-106); HDL Cholesterol 42 mg/dL (40-60); Potassium 3.6 mmol/L (3.5-5.1); Sodium 144 mmol/L (136-145); Total Protein 7.8 g/dL (6.4-8.2); Triglyceride 266 mg/dL (<150)
[2019-12-19 13:11] LABS: Hemoglobin A1C 6.1 % (3.8-5.6)
[2019-12-19 13:51] LABS: COMMENT (LAB VIEW ONLY) 128.53 mg/dL; Microalb ug/mg Crea 10.1 ug/mg Cr
== END 2019-12-19 02:38 ==
PROVIDERS: PCP Family Medicine; Visit Provider Family Medicine
DX: E11.65 Type 2 diabetes mellitus with hyperglycemia (principal)
CPT/HCPCS: 36415; 80053; 80061; 85027; 82043; 82570; 83036

== ENCOUNTER 2020-01-08 02:29 | Outpatient (CLI) | payer MEDICARE, SELFPAY ==
--- NOTE | 2020-01-08 12:21 | DI.US_ITS ---
APPROVED REPORT EXAM: Comprehensive 2D, Doppler, and color-flow Echocardiogram Patient Location: Out-Patient Glass Calibrator: Betsey Garcia RDCS (AE) Other Information Study Quality: Adequate Conclusion Left Ventricle : The left ventricle is normal size. The left ventricular systolic function is normal. The left ventricular ejection fraction is within the normal range. There is normal left ventricular wall thickness. There is normal LV segmental wall motion. The left ventricular diastolic function is normal. LVEF is 55-60%. Right Ventricle : The right ventricle is normal size. The right ventricular systolic function is norm al. The RVSP is 19.1 mmHg. Atria : The left atrium size is normal. The right atrium size is normal. Valves: There are no hemodynamically significant valvular lesions. Great Vessels : The aortic root is normal in size. The ascending aorta is normal in size. Aortic arch is normal in caliber. IVC is normal in size and collapses >50% with inspiration. There are no prior images available for comparison. Wall motion Left Ventricle The left ventricle is normal size. The left ventricular systolic function is normal. The left ventric ular ejection fraction is within the normal range. There is normal left ventricular wall thickness. T here is normal LV segmental wall motion. The left ventricular diastolic function is normal. There is no ventricular septal defect visualized. LVEF is 55-60%. Right Ventricle The right ventricle is normal size. The right ventricular systolic function is normal. The RVSP is 19 .1 mmHg. Atria The left atrium size is normal. The right atrium size is normal. The interatrial septum is intact wit h no evidence for an atrial septal defect. Aortic Valve The aortic valve is normal in structure. Aortic valve is trileaflet. There is no aortic valvular sten osis. No aortic regurgitation is present. Mitral Valve The mitral valve is normal in structure. No evidence of mitral valve stenosis. Trace mitral regurgita tion. Tricuspid Valve The tricuspid valve is normal in structure. There is no tricuspid valve stenosis. Trace tricuspid reg urgitation. Pulmonic Valve The pulmonary valve is normal in structure. There is no pulmonic valvular stenosis. There is no pulmo mary beth valvular regurgitation. Great Vessels The aortic root is normal in size. The ascending aorta is normal in size. Aortic arch is normal in ca liber. IVC is normal in size and collapses >50% with inspiration. Pericardium There is no pericardial effusion. 2D Dimensions IVSD d PLAX 0.80 cm F: 0.6-1.0 LV Vol A2C d MOD 51.9 mL LVPW d PLAX 0.82 cm F: 0.6 - 1.0 LV Vol A4C d MOD 76.1 mL LVID d PLAX 4.38 cm F: 3.8 - 5.2 LA vol/ BSA A2C s A-L 9.7 mL/m2 LVDs 3.00 cm F: 2.2 - 3.5 LA vol/ BSA A4C s A-L 12.4 mL/m2 Ao Root d 2.57 cm F: 2.7 - 3.3 LA Vol/ BSA Biplane s A-L 11.4 mL/m2 RA Area A4C 9.97 cm2 LA Area A4C s MOD 10.67 cm2 RA Vol/ BSA A4C s A-L 12.1 mL/m2 LA Area A2C s MOD 9.11 cm2 Ao Asc Diam d 3.09 cm F: 2.3 - 3.1 LV EF A4C MOD 55.6 % LV EF Teichholz 59.4 % LV EF A2C MOD 58.6 % LVEF (Banda's) 55.29 % F: 54 - 74 LV EF Biplane MOD 55.3 % LV Volume 49.17 mL F: 46 - 106 SV 35.25 mL LV Volume Index 26.72 mL/m2 F: 29 - 61 SV Index 19.12 mL/m2 LV Vol Biplane MOD 63.8 mL FS 31.30 % M-Mode TAPSE 1.85 cm (M/F) >1.7 LV Diastology MV E' medial 0.065 (>0.07 m/s) E/A Ratio 0.8 LV E/e MED 10.25 (<14) MV E Vmax 0.66 (0.4-1.3 m/s) MV E' lateral 0.076 (>0.1 m/s) MV A Vmax 0.80 (0.4-1.3 m/s) LV E/e LAT 8.70 (<14) MV E/A Ratio 0.82 MV E/E' medial 10.29 MV E/E' lateral 8.71 Aortic Valve LVOT Area 3.12 cm2 AoV Area Vmax 2.00 cm2 LVOT Vmax 1.01 m/s AoV Area/ BSA (Vmax) 1.08 cm2/m2 LVOT Mean Toni. 0.65 m/s CARMELA Mean Toni. 1.82 cm2 LVOT Peak Grad 4.1 mmHg CARMELA Mean Toni. Index 0.99 cm2/m2 LVOT Mean Grad 2.0 mmHg LVOT VTI 0.194 m LVOT Diam s 1.95 cm AoV Vmax 1.58 m/s Velocity Ratio 0.63 AoV Mean Toni. 1.12 m/s AoV Peak Grad 10.0 mmHg LVOT SV 60.58 mL AoV Mean Grad 5.5 mmHg AoV VTI 0.250 m AoV Area VTI 2.42 cm2 AoV Area/ BSA (VTI) 1.31 cm/m2 Mitral Valve MV DT 247 (160-240 msec) MV PHT 72 msec MV Area PHT 3.07 cm2 Pulmonary Valve PV Vmax 1.02 (0.5-1.5 m/s) RVOT Peak Gr. 2.02 mmHg PV Peak Grad 4.2 mmHg RVOT Mean Gr. 0.95 mmHg PV Mean Grad 2.2 mmHg RVOT VTI 0.134 m PV VTI 0.155 m RVOT Vmax 0.71 m/s Tricuspid Valve TR Peak Grad 16.0 mmHg TR Vmax 2.00 m/s RA Pressure 3.00 mmHg RVSP (TR) 19.1 mmHg
== END 2020-01-08 02:49 ==
PROVIDERS: PCP Family Medicine; Visit Provider Family Medicine
DX: I10 Essential (primary) hypertension (principal); R06.02 Shortness of breath
CPT/HCPCS: 93306

== ENCOUNTER → 2020-05-27 01:40 | Outpatient (CLI) | payer MEDICARE, SELFPAY ==
--- NOTE | 2020-05-27 07:45 | DI.CT_ITS ---
EXAM: CT CHEST WO CLINICAL HISTORY: F/U PREV CT, PULMONARY NODULE, R91.1,Z91.89 TECHNIQUE: CT examination of the chest was performed utilizing low-dose lung cancer screening protoc . COMPARISON: CT CT CHEST LUNG CANCER SCREEN from 12/05/2019 FINDINGS: Images obtained through the upper abdomen show unremarkable appearance of visualized portions of the liver and spleen. Note is made of cholelithiasis without biliary dilatation. Visualized portions o f kidneys and adrenals are unremarkable. Pancreas appears intact. There is no mediastinal or hilar adenopathy. Mediastinal vascular structures appear intact by noncon trast criteria. Tracheobronchial tree appears intact. No pleural effusion or pleural-based mass. There are previously described pulmonary nodules largest in right lower lobe two nodules each measuri ng about 6 millimeters in greatest diameter. Use appear unchanged from prior CT of November 2019. No si gnificant new nodule identified. IMPRESSION: Stable appearance previously described noncalcified right lower lobe intrapulmonary nodules, measurin g about 6 millimeters in diameter. Lung RADS Cat 2 - Benign Appearance / Behavior: Nodules with a very low likelihood of becoming a clin ically active cancer due to size or lack of growth Resume routine annual screening with LD CT in 12 months RADIATION DOSE DELIVERED: LINK-TO-SR Total DLP 610.79mGy.cm Total DLP
== END ==
PROVIDERS: PCP Family Medicine; Visit Provider Family Medicine
DX: R91.8 Other nonspecific abnormal finding of lung field (principal)
CPT/HCPCS: 71250

== ENCOUNTER 2020-08-04 03:32 | Outpatient (CLI) | payer MEDICARE, SELFPAY ==
[2020-08-04 12:40] LABS: Iron 74 ug/dL (50-170)
[2020-08-04 13:02] LABS: Vitamin D 25 Total 10.5 ng/ml (30-100)
[2020-08-04 13:09] LABS: Ferritin 178 ng/mL (8-252); TSH (W/Ref FT4) 1.43 uIU/mL (0.36-3.74); Vitamin B12 488 pg/mL (193-986)
== END 2020-08-04 03:33 | disposition home or self-care (01) ==
LOC: LOS 03:32
PROVIDERS: PCP Family Medicine; Visit Provider Family Medicine
DX: E11.9 Type 2 diabetes mellitus without complications (principal); I10 Essential (primary) hypertension; M81.0 Age-related osteoporosis without current pathological fracture; G47.30 Sleep apnea, unspecified; R06.02 Shortness of breath; R45.1 Restlessness and agitation
CPT/HCPCS: 36415; 82306; 82607; 82728; 83540; 84443

== ENCOUNTER 2020-09-03 16:55 | Outpatient (REF) | payer MEDICARE, SELFPAY ==
[2020-09-03 13:53] LABS: Bilirubin Negative (Negative); Blood Small (Negative); Clarity Sl Cloudy (Clear); Glucose Negative (Negative); Ketones Negative (Negative); Leukocyte Esterase Small (Negative); Nitrite Negative (Negative); Specific Gravity 1.025 (1.005-1.025); Urobilinogen 0.2 EU/dL (Up TO 0.2); pH 6.5 (5-8)
[2020-09-03 14:09] LABS: Epithelial Cells Many HPF (Negative); WBC >50 HPF (0-5)
[2020-09-03 14:10] LABS: C & S Indicated? No/Sq. Contamination
== END 2020-09-03 16:56 | disposition home or self-care (01) ==
LOC: LBN 16:55
PROVIDERS: PCP Family Medicine; Visit Provider Family Medicine
DX: R35.0 Frequency of micturition (principal)
CPT/HCPCS: 81003; 81015

== ENCOUNTER 2020-09-09 11:43 | Outpatient (REF) | payer MEDICARE, SELFPAY ==
[2020-09-09 14:35] LABS: Bilirubin Negative (Negative); Blood Trace-intact (Negative); Clarity Clear (Clear); Glucose Negative (Negative); Ketones Negative (Negative); Leukocyte Esterase Negative (Negative); Nitrite Negative (Negative); pH 7.5 (5-8)
[2020-09-09 14:45] LABS: Bacteria Negative HPF (Negative); C & S Indicated? No; Casts Negative LPF (Negative); Crystals Negative HPF (Negative); Epithelial Cells Few HPF (Negative); Mucus Negative (Negative); RBC 0-2 HPF (0-2); WBC Negative HPF (0-5)
== END 2020-09-09 11:44 | disposition home or self-care (01) ==
LOC: LBN 11:43
PROVIDERS: PCP Family Medicine; Visit Provider Family Medicine
DX: R35.0 Frequency of micturition (principal)
CPT/HCPCS: 81003; 81015

== ENCOUNTER 2020-10-13 12:04 | Outpatient (CLI) | payer MEDICARE, SELFPAY ==
--- NOTE | 2020-10-13 09:00 | DI.RAD_ITS ---
Exam(s) XR CERVICAL SPINE COMP 4-5V EXAM: XR CERVICAL SPINE COMP 4-5V CLINICAL HISTORY: Cervical radiculitis/radiculopathy, M54.12, neck and arm pain. TECHNIQUE: 2D digital imaging was performed. COMPARISON: No exams were available for comparison FINDINGS: The odontoid is intact. The lateral masses are well aligned. There is normal alignment of the cervi chadwick spine. There is mild disc space narrowing at C6-C7. Small endplate osteophytes are seen from C4 -5 through C6-C7. There are degenerative changes of the facets present at multiple levels. There is mild narrowing of the neural foramen bilaterally at C6-C7. No acute fracture or subluxation. The p revertebral soft tissues are unremarkable. SOFT TISSUE: Normal. The lung apices are clear. IMPRESSION: Moderate cervical spondylosis. DATA REPOSITORY: RADIATION DOSE DELIVERED:
== END 2020-10-13 12:24 ==
PROVIDERS: PCP Family Medicine; Visit Provider Family Medicine
DX: M54.2 Cervicalgia (principal); M54.12 Radiculopathy, cervical region; M79.601 Pain in right arm; M79.602 Pain in left arm; M50.323 Other cervical disc degeneration at C6-C7 level; M47.22 Other spondylosis with radiculopathy, cervical region
CPT/HCPCS: 72050

== ENCOUNTER 2020-10-22 02:03 | Outpatient (CLI) | payer MEDICARE, SELFPAY ==
--- NOTE | 2020-10-22 10:21 | DI.RAD_ITS ---
Exam(s) XR THORACIC SPINE COMPLETE EXAM: XR THORACIC SPINE COMPLETE CLINICAL HISTORY: left upper back pain, kyphosis, M40.209, M54.6. TECHNIQUE: 2D digital imaging was performed. COMPARISON: No exams were available for comparison FINDINGS: There is normal alignment of the thoracic spine. Blcq-[id number] degenerative changes are seen thro ughout the spine. No acute fractures or subluxations are seen. The paraspinal lines are unremarkabl e. The visualized lungs are clear. The bones are normally mineralized. IMPRESSION: [id number] degenerative changes in the thoracic spine. DATA REPOSITORY: RADIATION DOSE DELIVERED:
== END 2020-10-22 02:23 ==
PROVIDERS: PCP Family Medicine; Visit Provider Family Medicine
DX: M54.6 Pain in thoracic spine (principal); M40.294 Other kyphosis, thoracic region; M47.814 Spondylosis without myelopathy or radiculopathy, thoracic region
CPT/HCPCS: 72072

== ENCOUNTER 2020-11-05 04:20 | Outpatient (CLI) | payer MEDICARE, SELFPAY ==
--- NOTE | 2020-11-05 08:30 | DI.MRI_ITS ---
Exam(s) MR CERVICAL SPINE WO EXAM: MR CERVICAL SPINE WO CLINICAL HISTORY: C6-7 radiculopathy,CERVICAL RADICULITIS,M54.12,MUSCLE WEAKNESS C6-7, FAILED TECHNIQUE: Multiplanar multisequence MRI of the cervical spine was performed without intravenous con trast. COMPARISON: CR XR CERVICAL SPINE COMP 4-5V from 10/13/2020 FINDINGS: BONES: Vertebral body heights are maintained. Intervertebral disc spaces are normal. Alignment is nor mal. Bone marrow signal intensity is within normal limits. CERVICAL CORD: Craniovertebral junction is unremarkable. The cervical cord is normal size and signal intensity. SOFT TISSUES: Unremarkable. C2-3: No disc herniation or bulge is identified. C3-4: No disc herniation or bulge is identified. C4-5: No disc herniation or bulge is identified. C5-6: No disc herniation or bulge is identified. C6-7: Mild loss of disc height. Small endplate osteophytes causes mild bony foraminal encroachment. Left foraminal disc herniation causing severe left neural foraminal narrowing and nerve root impinge ment. No central canal stenosis.. C7-T1: No disc herniation or bulge is identified. IMPRESSION: Left foraminal disc protrusion at C6-7. DATA REPOSITORY:
== END 2020-11-05 04:40 ==
PROVIDERS: PCP Family Medicine; Visit Provider Family Medicine
DX: M50.123 Cervical disc disorder at C6-C7 level with radiculopathy (principal); M62.81 Muscle weakness (generalized)
CPT/HCPCS: 72141

== ENCOUNTER 2020-12-07 09:45 | Outpatient (CLI) | payer MEDICARE, SELFPAY ==
[2020-12-07 12:22] LABS: HCT 45.6 % (36.0-46.0); HGB 14.9 g/dL (11.2-15.7); MCH 29.7 pg (27.0-33.0); MCHC 32.7 % (32.0-36.0); MPV 10.6 fL (8.0-11.0); Platelet Count 352 10^3/uL (130-400); RBC 5.01 10^6/uL (3.93-5.22); RDW 13.4 % (11.7-14.6); RDW-SD 44.4 fL; WBC 9.15 10^3/uL (4.4-10.8)
[2020-12-07 12:36] LABS: ALT 49 U/L (14-59); AST 24 U/L (15-37); Albumin 3.9 g/dL (3.4-5.0); Alkaline Phosphatase 85 U/L (46-116); Anion Gap 11.1 mmol/L (3-11); BUN 19 mg/dL (7-18); Bilirubin, Total 0.5 mg/dL (0.2-1.0); CO2 30.9 mmol/L (21.0-32.0); CREATININE 0.8 mg/dL (0.55-1.02); Calcium 9.2 mg/dL (8.5-10.1); Calculated LDL 178 mg/dL (<100); Chloride 102 mmol/L (98-107); Cholesterol 279 mg/dL (<200); Glucose 155 mg/dL (74-106); HDL Cholesterol 40 mg/dL (40-60); Potassium 3.2 mmol/L (3.5-5.1); Sodium 144 mmol/L (136-145); Total Protein 7.4 g/dL (6.4-8.2); Triglyceride 307 mg/dL (<150)
[2020-12-07 12:39] LABS: Hemoglobin A1C 7.1 % (<5.7)
[2020-12-07 12:41] LABS: COMMENT (LAB VIEW ONLY) 127.18 mg/dL; Microalb ug/mg Crea 17.6 ug/mg Cr
[2020-12-07 18:44] LABS: Vitamin D 25 Total 35.6 ng/mL (30-100)
== END 2020-12-07 09:46 | disposition home or self-care (01) ==
LOC: LOS 09:46
PROVIDERS: PCP Family Medicine; Visit Provider Family Medicine
DX: E11.9 Type 2 diabetes mellitus without complications (principal); I10 Essential (primary) hypertension; E55.9 Vitamin D deficiency, unspecified; R06.02 Shortness of breath; J44.9 Chronic obstructive pulmonary disease, unspecified
CPT/HCPCS: 36415; 80053; 80061; 82306; 85027; 82043; 82570; 83036

== ENCOUNTER 2020-12-09 03:34 | Outpatient (CLI) | payer MEDICARE, SELFPAY ==
--- NOTE | 2020-12-09 13:21 | DI.MAMMO_ITS ---
Exam(s) MAMMO SCREENING EXAM: MAMMO SCREENING CLINICAL HISTORY: screening,Z12.39. TECHNIQUE: Bilateral full field digital CC and MLO mammographic images were obtained with 3D tomosyn thesis and utilizing computer aided detection (CAD). COMPARISON: Prior mammograms dating back to 2012, the most recent being November 2018. Breast ultrasound November 2018 was reviewed FINDINGS: There are no new spiculated masses nor malignant-appearing microcalcification groups in either breast . Small round nodule laterally in the left breast seen on 3D imaging is unchanged from previous study a nd most probably corresponds to the small cyst described on the prior ultrasound. There is no significant architectural distortion nor skin thickening-retraction. IMPRESSION: Stable benign findings. No radiographic evidence of malignancy. BI-RADS Category 2 - Benign Findings Breast Density - Category B - Scattered areas of fibroglandular density Breast density Category C or D implies that the patient has dense breast tissue. Dense breast tissue can make it harder to find cancer on a mammogram. Dense breast tissue is also associated with an incr eased risk of breast cancer. This information about the result of the mammogram report was provided to the patient to raise their awareness. Use this report when you speak with the patient about their risks for breast cancer, which includes their family history. At that time, you may recommend additional screening tests (Ultrasoun d or MRI) as these tests may add significant information. A negative radiographic report should not delay biopsy if a dominant or clinically suspicious mass is present. Up to ten percent of cancers are not identified on mammography. A negative report may reinforce clinical impression. Adenosis and dense breasts may obscure an underlying neoplasm. False positive reports average 6 to 10%. Patient will receive a letter notifying them of these results.
== END 2020-12-09 03:54 ==
PROVIDERS: PCP Family Medicine; Visit Provider Family Medicine
DX: Z12.31 Encounter for screening mammogram for malignant neoplasm of breast (principal); R92.8 Other abnormal and inconclusive findings on diagnostic imaging of breast
CPT/HCPCS: 77063; 77067

== ENCOUNTER 2020-12-14 11:01 | Outpatient (REF) | payer MEDICARE, SELFPAY ==
[2020-12-14 12:12] LABS: Bilirubin Negative (Negative); Blood Negative (Negative); Glucose Negative (Negative); Ketones Negative (Negative); Leukocyte Esterase Negative (Negative); Nitrite Negative (Negative); Specific Gravity >= 1.030 (1.005-1.025); Urobilinogen 0.2 EU/dL (Up TO 0.2); pH 5.5 (5-8)
[2020-12-14 12:18] LABS: Clarity Clear (Clear)
== END 2020-12-14 11:02 | disposition home or self-care (01) ==
LOC: LBN 11:01
PROVIDERS: PCP Family Medicine; Visit Provider Neurological Surgery
DX: R82.998 Other abnormal findings in urine (principal); Z01.818 Encounter for other preprocedural examination
CPT/HCPCS: 81003; 87086

== ENCOUNTER 2021-01-25 02:12 | Outpatient (CLI) | payer MEDICARE, SELFPAY ==
--- NOTE | 2021-01-25 11:19 | DI.RAD_ITS ---
Exam(s) XR CERVICAL SPINE 1V EXAM: XR CERVICAL SPINE 1V CLINICAL HISTORY: DEGENERATIVE CERVICAL DISC,M50.30,S/P C6-7 ACDF. TECHNIQUE: 2D digital imaging was performed. Lateral and swimmer's view performed. COMPARISON: CR XR CERVICAL SPINE COMP 4-5V from 10/13/2020 CR XR CERVICAL SPINE COMP 4-5V from 10/13/2020 MR MR CERVICAL SPINE WO from 11/05/2020 FINDINGS: Since the previous exam, there has been anterior disc fusion with hardware in place at the C6-7 disc space. There is mild narrowing of the C5-6 disc space and small endplate osteophytes. Small osteoph ytes are noted at C 4 5. Facet degenerative changes are seen at all levels. IMPRESSION: C6-7 disc fusion. Otherwise stable degenerative changes. DATA REPOSITORY: RADIATION DOSE DELIVERED:
== END 2021-01-25 02:32 ==
PROVIDERS: PCP Family Medicine; Visit Provider Physician Assistant Medical
DX: M50.30 Other cervical disc degeneration, unspecified cervical region (principal); M43.22 Fusion of spine, cervical region
CPT/HCPCS: 72020

== ENCOUNTER 2021-05-09 16:34 | Outpatient (REF) | payer MEDICARE, SELFPAY ==
[2021-05-09 18:48] LABS: Bilirubin Negative (Negative); Blood Negative (Negative); Clarity Clear (Clear); Glucose Negative (Negative); Ketones Negative (Negative); Leukocyte Esterase Negative (Negative); Nitrite Negative (Negative); Specific Gravity >= 1.030 (1.005-1.025); pH 5.5 (5-8)
[2021-05-09 18:57] LABS: Bacteria Moderate HPF (Negative); C & S Indicated? No/Sq. Contamination; Casts Negative LPF (Negative); Crystals Negative HPF (Negative); Epithelial Cells Many HPF (Negative); Mucus Trace (Negative); RBC 0-2 HPF (0-2)
== END 2021-05-09 16:35 | disposition home or self-care (01) ==
LOC: NCHCN 16:34
PROVIDERS: PCP Family Medicine; Visit Provider Family Medicine
DX: R10.9 Unspecified abdominal pain (principal); R82.998 Other abnormal findings in urine
CPT/HCPCS: 81003; 81015

== ENCOUNTER 2021-05-11 00:31 | Outpatient (CLI) | payer MEDICARE, SELFPAY ==
--- NOTE | 2021-05-11 06:33 | DI.US_ITS ---
Exam(s) US ABDOMEN EXAM: US ABDOMEN CLINICAL HISTORY: epigastric and suprapubic pain,r10.9 TECHNIQUE: Ultrasound of complete upper abdomen performed using standard protocol. COMPARISON: US US ECHOCARDIOGRAM from 01/08/2020 FINDINGS: There is no ascites evident. LIVER: Liver is hyperechoic indicating steatosis. Also slightly prominent in size. There are no dis crete focal hepatic lesions. GALLBLADDER/BILIARY: There are multiple shadowing gallstones noted, ranging up to 1.8 cm size. The g allbladder wall is not edematous. There is no pericholecystic fluid. The common hepatic duct isupper normal, measuring 6-7mm at the level of joce hepatis. PANCREAS: There is no evidence of pancreatic mass nor dilatation of the pancreatic duct. SPLEEN: The spleen is not enlarged and there are no intrasplenic lesions evident. KIDNEYS:Kidneys exhibit normal size with no evidence of solid mass, calculus, nor hydronephrosis. No cortical cysts evident. ABDOMINAL AORTA: There is no evidence of abdominal aortic aneurysm. IVC: Normal diameter where visualized. IMPRESSION: 1. Cholelithiasis. There are multiple shadowing gallstones. Gallbladder wall is not edematous and the patient was apparently not tender over this area during scanning today. Common hepatic duct diam eters upper normal. 2. Hepatic steatosis and hepatomegaly. Correlation with appropriate hepatic blood work recommended. There are no obvious discrete focal hepatic lesions. 3. No other significant ultrasound findings in the upper abdomen and no ascites. DATA REPOSITORY:
== END 2021-05-11 00:51 ==
PROVIDERS: PCP Family Medicine; Visit Provider Family Medicine
DX: R10.9 Unspecified abdominal pain (principal); K80.20 Calculus of gallbladder without cholecystitis without obstruction; K76.0 Fatty (change of) liver, not elsewhere classified; R16.0 Hepatomegaly, not elsewhere classified
CPT/HCPCS: 76700

== ENCOUNTER 2021-07-01 21:39 | Outpatient (CLI) | payer MEDICARE, SELFPAY ==
--- NOTE | 2021-07-01 13:15 | DI.RAD_ITS ---
Exam(s) XR KNEE LT 3V AP,LAT,SHELBY EXAM: XR KNEE LT 3V AP,LAT,SHELBY CLINICAL HISTORY: acute left knee pain, no trauma, M25.562. TECHNIQUE: 2D digital imaging was performed of the left knee. Three images were obtained. AP, late ral and PA tunnel views were obtained. COMPARISON: CR LEFT KNEE 3 VIEW COMPLETE from 05/12/2010 FINDINGS: BONES: No acute fracture is present. No bony destructive lesion is seen. The ovoid density at the po sterior aspect of the knee is unchanged compared to the prior examination from 05/12/2010. There is a small enthesophyte at the superior aspect of the patella. JOINTS: The knee is normally aligned. No joint effusion is seen. SOFT TISSUE: Normal. IMPRESSION: No acute fracture or dislocation. DATA REPOSITORY: RADIATION DOSE DELIVERED:
== END 2021-07-01 21:59 ==
PROVIDERS: PCP Family Medicine; Visit Provider Family Medicine
DX: M25.562 Pain in left knee (principal)
CPT/HCPCS: 73562

== ENCOUNTER 2021-12-27 01:53 | Outpatient (CLI) | payer MEDICARE, SELFPAY ==
[2021-12-27 12:36] LABS: Hemoglobin A1C 7.3 % (<5.7)
[2021-12-27 12:56] LABS: ALT 51 U/L (14-59); AST 28 U/L (15-37); Albumin 3.8 g/dL (3.4-5.0); Alkaline Phosphatase 82 U/L (46-116); Anion Gap 10.1 mmol/L (3-11); BUN 23 mg/dL (7-18); Bilirubin, Total 0.3 mg/dL (0.2-1.0); CO2 30.9 mmol/L (21.0-32.0); CREATININE 0.7 mg/dL (0.55-1.02); Calcium 9.2 mg/dL (8.5-10.1); Calculated LDL 158 mg/dL (<100); Chloride 102 mmol/L (98-107); Cholesterol 238 mg/dL (<200); Glucose 124 mg/dL (74-106); HDL Cholesterol 42 mg/dL (40-60); Potassium 3.5 mmol/L (3.5-5.1); Sodium 143 mmol/L (136-145); TSH (W/Ref FT4) 1.34 uIU/mL (0.36-3.74); Triglyceride 194 mg/dL (<150)
[2021-12-27 22:52] LABS: Albumin, Ur < 0.6 mg/dL (See Note); Creatinine, Ur 78.3 mg/dL (See Note)
== END 2021-12-27 01:54 | disposition home or self-care (01) ==
LOC: LOS 01:53
PROVIDERS: PCP Family Medicine; Visit Provider Family Medicine
DX: I10 Essential (primary) hypertension (principal); E11.9 Type 2 diabetes mellitus without complications; R91.1 Solitary pulmonary nodule; G47.30 Sleep apnea, unspecified
CPT/HCPCS: 36415; 80053; 80061; 82043; 82570; 83036; 84443

== ENCOUNTER → 2021-12-27 13:24 | Outpatient (CLI) | payer MEDICARE, SELFPAY ==
--- NOTE | 2021-12-27 12:00 | DI.RAD_ITS ---
Exam(s) XR LUMBAR SPINE COMPLETE EXAM: XR LUMBAR SPINE COMPLETE CLINICAL HISTORY: Lumbago W/ Sciatica-M54.42, ? Disc Herniation, Eval Vertebral Alignment. TECHNIQUE: 2D digital imaging was performed. COMPARISON: No exams were available for comparison FINDINGS: Five views There is no evidence of fracture. There is mild degenerative anterolisthesis L4 upon L5 related to f acet arthropathy. There is preserved disc height at this level as well as at the other levels in the lumbar spine. Bone density normal. No osseous lesions. Also facet arthropathy at L5-S1 level. No scoliosis. SI joints unremarkable. IMPRESSION: Mild degenerative anterolisthesis L4 upon L5. If clinically indicated flexion extension lateral view s can be performed to determine the true amount of slippage during everyday activities. DATA REPOSITORY: RADIATION DOSE DELIVERED:
== END ==
PROVIDERS: PCP Family Medicine; Visit Provider Nurse Practitioner Family
DX: M43.16 Spondylolisthesis, lumbar region (principal)
CPT/HCPCS: 36415; 80053; 80061; 72110; 82043; 82570; 83036; 84443

== ENCOUNTER 2022-01-17 16:07 | Emergency (ER) | payer MEDICARE, SELFPAY ==
[2022-01-17 16:11] VITALS: BP 143/71; PULSE 86; RESP 18; TEMP 36.8; O2SAT 96
--- NOTE | 2022-01-17 16:45 | DI.CT_ITS ---
Exam(s) CT LUMBAR SPINE WO EXAM: CT LUMBAR SPINE WO CLINICAL HISTORY: radicular pain down left leg, prior surgery. TECHNIQUE: Imaging Protocol: Axial computed tomography images with coronal and sagittal reformatted images were created and reviewed COMPARISON: MR MRI - LUMBAR SPINE WO CONTRAST from 01/09/[address] CHEST WO from 05/27/2020 FINDINGS: Bones: The last intervertebral disc space is designated the L5/S1 level for the numbering purpose of this examination. The vertebral body heights are well maintained. Alignment is satisfactory. No frac ture is seen. T12-L1: No disc herniations or bulges are present. No central spinal canal or neural foraminal steno sis. L1-2: No disc herniations or bulges are present. No central spinal canal or neural foraminal stenosi s. L2-3: No disc herniations or bulges are present. No central spinal canal or neural foraminal stenosi s. L3-4: No disc herniations or bulges are present. No central spinal canal or neural foraminal stenosi s. L4-5: There is a mild diffuse disc bulge. There are hypertrophic changes of the facets. Mild narro wing of the central spinal canal is noted. There is mild bilateral neural foraminal narrowing. L5-S1: There is no focal disc herniation. There are hypertrophic changes of the facets. No signifi cant central spinal canal stenosis is present. There is mild left neural foraminal narrowing. No si gnificant right neural foraminal stenosis is present. Soft Tissues: The visualized SI joints and sacrum are will maintained. The paraspinal soft tissues a re unremarkable. There is a stable 5 mm nodule in the right lower lobe. IMPRESSION: 1. No acute fracture or subluxation in the lumbar spine. 2. Stable degenerative changes in the lumbar spine. RADIATION DOSE DELIVERED: 885.07mGy.cm Total DLP 885.07mGy.cm Total DLP DATA REPOSITORY: All CT scans at this facility are submitted to the National Radiology Data Registry (NRDR) Dose Index Registry (DIR) with the [employer] ([employer]). RADIATION OPTIMIZATION: All CT scans at this facility use at least one of these dose optimization te chniques: automated exposure control; mA and/or kV adjustment per patient size (includes targeted exa ms where dose is matched to clinical indication); or iterative reconstruction.
[2022-01-17] MEDS: oxyCODONE 5 MG TAB PO (16:52)
[2022-01-17] MEDS: Dexamethasone 4 MG TAB 8 MG PO (16:52)
--- NOTE | 2022-01-17 17:22 | DI.VRAD_ITS ---
PROCEDURE INFORMATION: Exam: CT Lumbar Spine Without Contrast Exam date and time: 01/17/2022 5:08 PM Age: 66 years old Clinical indication: Other: Radicular pain down left leg, prior surgery TECHNIQUE: Imaging protocol: Computed tomography of the lumbar spine without contrast. Radiation optimization: All CT scans at this facility use at least one of these dose optimization techniques: automated exposure control; mA and/or kV adjustment per patient size (includes targeted exams where dose is matched to clinical indication); or iterative reconstruction. COMPARISON: MRI - LUMBAR SPINE WO CONTRAST 01/09/2018 10:35 AM FINDINGS: Bones/joints: There is multilevel degenerative disc disease and bilateral facet arthropathy most prominent at L4-L5 with mild bilateral neural foraminal narrowing. There is mild to moderate spinal canal stenosis at L4-L5, similar to prior MRI. No acute fracture. Kidneys and ureters: Parapelvic cysts noted in the left kidney. Soft tissues: Unremarkable. IMPRESSION: 1. No acute fracture. 2. Mild to moderate multilevel degenerative changes as described. Dictated and Authenticated by: Gayla Hernandez MD. Ordering:SUZANNE Villareal MD
--- NOTE | 2022-01-17 18:13 | ED.GENADUL_ITS ---
Discharge Plan Disposition Patient Disposition: HOME Condition: Stable Discharge Details Clinical Impression: Acute left lumbar radiculopathy Primary Care Provider: Allie Blackmon ED Provider: Dionna Boyle Home Meds and New Rx's Prescriptions: New gabapentin [Neurontin] 100 mg capsule 100 mg PO TID Qty: 21 0RF dexamethasone [Decadron] 4 mg tablet 4 mg PO DAILY Qty: 13 0RF Rx Instructions: take 4 mg x7 days, 2 mg x7 days, 1 mg x4 days and discontinue Continued Adult Probiotic 3 billion cell capsule 3,000 mmu cells PO HS ibuprofen 600 mg tablet 600 mg PO TID PRN lorazepam 0.5 mg tablet 0.5 mg PO BID PRN (Reason: anxiety) Qty: 10 1RF potassium chloride 20 mEq tablet extended release 20 meq PO DAILY Qty: 90 5RF Shingrix Adjuvant Component-PF Suspension 1 ml IM ONCE Qty: 0.5 1RF Rx Instructions: Do today, repeat in 2 month chlorthalidone 25 mg tablet 25 mg PO DAILY Qty: 90 12RF Trelegy Ellipta 100-62.5-25 mcg blister with device 1 inh IH Q24H Qty: 60 5RF tramadol 50 mg tablet 50 mg PO Q6H PRN (Reason: pain) Qty: 20 0RF prednisone 20 mg tablet See Rx Instructions PO DAILY Qty: 11 0RF Rx Instructions: 2 tabs 3 days; 1 tab 3 days; 0.5 tabs 4 days PO daily; lidocaine 5 % adhesive patch,medicated 1 patch topical DAILY Qty: 30 0RF Rx Instructions: leave on most painful area for up to 12 hrs bupropion HCl 150 mg tablet extended release 24 hr 150 mg PO QAM Qty: 90 4RF metoprolol succinate 25 mg tablet extended release 24 hr 25 mg PO DAILY Qty: 90 5RF cyclobenzaprine 10 mg tablet 10 mg PO TID PRN (Reason: muscle spasm) Qty: 90 0RF polyethylene glycol 3350 [Miralax] 17 GM powder in packet 17 g PO DAILY PRNQty: 255 escitalopram oxalate 20 mg tablet 20 mg PO DAILY Qty: 90 4RF ergocalciferol (vitamin D2) 1,250 mcg (50,000 unit) capsule 50,000 unit PO QWEEK Qty: 13 0RF glyburide 5 mg tablet 5 mg PO DAILY Qty: 90 5RF acetaminophen [Acetaminophen Extra Strength] 500 MG tablet 1,000 mg PO Q8H PRN PRNQty: 60 3RF Discharge Instructions Additional Instructions: Please follow-up with your primary care physician in 24 to 48 hours Take addended dose of Decadron, this will likely cause increase in your blood sugar, this will resolve when you discontinue the steroid Take Neurontin as prescribed, do not drive for 8 hours after taking this medication, it may make you drowsy Please return should you have new or worsening complaints Referrals: Allie Blackmon MD, [place] [Primary Care Provider] - 2 days Discharge Data Discharge Date/Time-TO BE ENTERED AT DEPARTURE: 01/17/22 19:06 Medical Decision Making Patient without significant acute abnormality on CT scan, recommend outpatient MRI at the discretion of her provider Will provide steroid taper and Neurontin as needed for discomfort Neurologically intact Return precautions discussed and patient expressed understanding, ambulatory with antalgic gait No urinary symptoms, no evidence of intra-abdominal involvement Medical Records Medical records reviewed: Yes I reviewed the patient's medical records. Lab Data Lab results reviewed: Yes I reviewed the patient's lab results. ECG Data Prior ECG tracings: available for review HPI General Date/Time Provider Initiated Documentation: 01/17/22 16:22 . HPI Narrative: This 66-year-old female presents with pain to her left buttock radiating into her left ankle that has been going on for the past 3 weeks. She been seen by several providers and check a steroid prescription that reportedly helped her symptoms minimally. She presents here secondary to worsening and more constant pain She denies any groin numbness, strength or sensation changes urinary incontinence or retention, fever, and chills. She denies any known trauma. She has had prior surgery many years ago reportedly. She denies any additional complaints at this time. States the pain is exacerbated with with laying in a supine position and partially improved Related Data Home Medications Medication Instructions Recorded Confirmed acetaminophen 500 mg tablet 1,000 mg PO Q8H PRN PRN #60 tabs 08/28/17 01/17/22 (Acetaminophen Extra Strength) polyethylene glycol 3350 17 gram 17 g PO DAILY PRN #255 grams 11/08/17 01/17/22 oral powder packet (Miralax) lactobacillus combination no.8 3 3,000 mmu cells PO HS 07/25/18 01/17/22 billion cell capsule (Adult Probiotic) ibuprofen 600 mg tablet 600 mg PO TID PRN 06/02/19 01/17/22 escitalopram oxalate 20 mg tablet 20 mg PO DAILY #90 tabs 11/11/20 01/17/22 lorazepam 0.5 mg tablet 0.5 mg PO BID PRN anxiety #10 tabs 12/07/20 01/05/22 adjuvant AS01B (PF)vial 1 of 2 1 ml IM ONCE #0.5 mL 02/22/21 01/17/22 (Shingrix Adjuvant Component (PF) intramuscular suspension) potassium chloride 20 mEq 20 meq PO DAILY #90 tabs 02/22/21 01/17/22 tablet,extended release chlorthalidone 25 mg tablet 25 mg PO DAILY #90 tabs 04/04/21 01/17/22 fluticasone fur. 100 mcg-umeclid 1 inh inhalation Q24H #60 ea 04/04/21 01/17/22 62.5 mcg-vilant 25 mcg inhalat.powder (Trelegy Ellipta) tramadol 50 mg tablet 50 mg PO Q6H PRN pain #20 tabs 07/01/21 01/05/22 ergocalciferol (vitamin D2) 1,250 50,000 unit PO QWEEK #13 caps 10/26/21 01/17/22 mcg (50,000 unit) capsule bupropion HCl 150 mg 24 hr tablet, 150 mg PO QAM #90 tabs 12/08/21 01/17/22 extended release metoprolol succinate 25 mg 25 mg PO DAILY #90 tabs 12/08/21 01/17/22 tablet,extended release 24 hr glyburide 5 mg tablet 5 mg PO DAILY #90 tabs 12/22/21 01/17/22 lidocaine 5 % topical patch 1 patch topical DAILY #30 ea 12/27/21 01/17/22 prednisone 20 mg tablet See Rx Instructions PO DAILY #11 12/27/21 01/05/22 tabs cyclobenzaprine 10 mg tablet 10 mg PO TID PRN muscle spasm #90 01/05/22 01/17/22 tabs dexamethasone 4 mg tablet 4 mg PO DAILY #13 tabs 01/17/22 (Decadron) gabapentin 100 mg capsule 100 mg PO TID #21 caps 01/17/22 (Neurontin) Previous Rx's Medication Instructions Recorded acetaminophen 500 mg tablet 1,000 mg PO Q8H PRN PRN #60 tabs 08/28/17 (Acetaminophen Extra Strength) escitalopram oxalate 20 mg tablet 20 mg PO DAILY #90 tabs 11/11/20 lorazepam 0.5 mg tablet 0.5 mg PO BID PRN anxiety #10 tabs 12/07/20 adjuvant AS01B (PF)vial 1 of 2 1 ml IM ONCE #0.5 mL 02/22/21 (Shingrix Adjuvant Component (PF) intramuscular suspension) potassium chloride 20 mEq 20 meq PO DAILY #90 tabs 02/22/21 tablet,extended release chlorthalidone 25 mg tablet 25 mg PO DAILY #90 tabs 04/04/21 fluticasone fur. 100 mcg-umeclid 1 inh inhalation Q24H #60 ea 04/04/21 62.5 mcg-vilant 25 mcg inhalat.powder (Trelegy Ellipta) tramadol 50 mg tablet 50 mg PO Q6H PRN pain #20 tabs 07/01/21 ergocalciferol (vitamin D2) 1,250 50,000 unit PO QWEEK #13 caps 10/26/21 mcg (50,000 unit) capsule bupropion HCl 150 mg 24 hr tablet, 150 mg PO QAM #90 tabs 12/08/21 extended release metoprolol succinate 25 mg 25 mg PO DAILY #90 tabs 12/08/21 tablet,extended release 24 hr glyburide 5 mg tablet 5 mg PO DAILY #90 tabs 12/22/21 lidocaine 5 % topical patch 1 patch topical DAILY #30 ea 12/27/21 prednisone 20 mg tablet See Rx Instructions PO DAILY #11 12/27/21 tabs cyclobenzaprine 10 mg tablet 10 mg PO TID PRN muscle spasm #90 01/05/22 tabs dexamethasone 4 mg tablet 4 mg PO DAILY #13 tabs 01/17/22 (Decadron) gabapentin 100 mg capsule 100 mg PO TID #21 caps 01/17/22 (Neurontin) Allergies Allergy/AdvReac Type Severity Reaction Status Date / Time No Known Allergies Allergy Verified 01/17/22 16:15 General Stated Complaint: Nk/Back Pain JUSTYNA: 4 Review of Systems All systems reviewed & are unremarkable except as noted in HPI and below PFSH All Active Problems (Updated 01/17/22 @ 18:26 by MARCK Estrella) Acute left lumbar radiculopathy (Acute) COVID-19 (Acute) 12/12/21 Vaccinated, booster Moderna/pps Skin abnormalities (Acute) Muscle spasm (Acute) Weakness (Acute) Abdominal pain (Acute) Vitamin D deficiency disease (Acute) Thoracic back pain (Acute) Arm pain (Acute) Kyphosis (Acute) Cervical radiculitis (Acute) MRI C6-7 nerve root impingement Shingles (Acute) Restless (Acute) Sleep apnea (Acute) Pulmonary nodule less than 6 mm in diameter with low risk for malignant neoplasm (Acute) Pulmonary nodule (Acute) Shortness of breath (Acute) Diabetes mellitus (Acute 12/31/17) a1c 5.1 Essential hypertension (Acute 03/11/13) Elevated blood sugar (Acute) Chronic rectal pain (Acute) Fissure in ano (Acute) Depression (Acute) Atrophy of vagina (Acute 10/16/16) Chronic obstructive lung disease (Acute) Medical History (Updated 01/17/22 @ 18:26 by MARCK Estrella) Abdominal mass 09/11/05 Anxiety Arthritis of right acromioclavicular joint (05/30/17) C. difficile colitis Cardiac murmur Pt. 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 Herpes zoster complicated 08/11/13 Herpes zoster with complication (08/11/13) History of depression HTN (hypertension) Hx of Clostridium difficile infection Hyperlipidemia Incomplete tear of right rotator cuff (09/07/17) Joint pain of leg 07/15/12 Knee pain Knee pain Lumbar back pain with radiculopathy affecting left lower extremity (12/31/17) Migraine Obstructive sleep apnea syndrome (10/27/11) excessive daytime sleepiness cannot tolerate CPAP machine JESSICA (obstructive sleep apnea) Other fatigue Other specified visual disturbances (07/15/12) Other visual disturbances 07/15/12 Ovarian cyst, complex Pain of joint of lower extremity (07/15/12) Pelvic floor dysfunction (10/16/16) Pericarditis acute Pericarditis (~1977) Restless legs syndrome (10/27/11) Shoulder joint pain 07/15/12 Shoulder joint pain (07/15/12) Smoker quit 05/14/2009 Smoker Superior glenoid labrum lesion of shoulder (10/30/17) Syncope normal echo w/ EF 70%; Holter-neg.; MRI shows a meningioma which has been stable now x 4 mos. Urinary frequency (08/18/14) Ventral hernia with obstruction but no gangrene QUESTION OF RIGHT Vertigo (03/02/15) Surgical History Arthroscopy, Shoulder 08/28/17 (R) Biopsy of breast X 2 Colonoscopy - MAC (01/28/16) H/O lumpectomy History of oophorectomy, unilateral History of tonsillectomy Hx of discectomy Hysterectomy, Laproscopic (~1980) Oophrectomy, Left S/P breast biopsy S/P laparoscopic hysterectomy 05/14/80 Family History Mother Diabetes Essential hypertension Dementia Depression Heart disease Father Diabetes Essential hypertension Heart disease Brother No problems noted. Brother Essential hypertension Depression Hyperlipidemia Maternal Grandmother Diabetes Essential hypertension Heart disease Brother Essential hypertension Heart disease Maternal Grandfather No problems noted. Paternal Grandfather Heart disease Paternal Grandmother Stroke Son No problems noted. Son Heart disease Mental disorder Depression Brother Heart disease Brother No problems noted. 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 Pets and animals: Yes Pets and animals: dog(s) Sexually active: No Do you think of yourself as: straight/heterosexual Current gender identity: female What is your relationship status?: How often do you talk on the phone with friends or family?: three or more times per week How often do you get together with friends or relatives?: twice per week How often do you attend latter day or taoism services?: 1-3 times per year Do you belong to any clubs or organized social groups?: no Panel score (0-1 are the most socially isolated patients): 2 Hien/Catholic: Scientologist Special hien needs: No Seatbelt use: always Drive intox or ride w/intox speedboat driver: No Do you feel safe at home: Yes Do you feel safe in your relationship?: Yes Exam Const General: cooperative, comfortable and no acute distress Eyes Pupils: PERRL Resp Effort & Inspection: normal respiratory effort Cardio Rate: regular rate GI Other: Nontender abdominal exam Back/Spine/Pelvis Back: no CVA tenderness Other: Lumbar spine tenderness mild, no crepitus, no erythema Skin General skin exam: no rashes or lesions noted Neuro General: patient alert and patient oriented x3 Cognition: normal cognition Speech: speech normal Sensory Exam: no sensory deficits noted Other: Negative straight leg raise. Ambulatory with steady, antalgic gait neurovascularly intact, Extrem General: normal to inspection Other: Neurovascularly intact Course Vital Signs Vital signs: Vital Signs Temperature 36.8 C 01/17/22 16:11 Pulse 86 01/17/22 16:11 Respiratory Rate 18 01/17/22 16:11 Blood Pressure 143/71 H 01/17/22 16:11 Pulse Oximetry 96 01/17/22 16:11 Temperature 36.8 C 01/17/22 16:11 Temperature Source Tympanic 01/17/22 16:11 Pulse 86 01/17/22 16:11 Respiratory Rate 18 01/17/22 16:11 Respiratory Effort Non-Labored 01/17/22 16:18 Blood Pressure 143/71 H 01/17/22 16:11 Blood Pressure Position Sitting 01/17/22 16:11 Pulse Oximetry 96 01/17/22 16:11 Oxygen Delivery Method Room Air 01/17/22 16:11 Oxygen Flow Rate 0 01/17/22 16:11 Pain Level 6 01/17/22 16:52
[2022-01-17 18:30] VITALS: BP 115/62; PULSE 81; TEMP 36.5; O2SAT 95
== END 2022-01-17 19:06 | disposition home or self-care (01) ==
PROVIDERS: Emergency Provider Physician Assistant; PCP Family Medicine
DX: M54.16 Radiculopathy, lumbar region (principal); J44.9 Chronic obstructive pulmonary disease, unspecified; I10 Essential (primary) hypertension; Z79.51 Long term (current) use of inhaled steroids; Z87.891 Personal history of nicotine dependence
CPT/HCPCS: 99283; 72131; 99284; J8540

== ENCOUNTER → 2022-01-25 01:13 | Outpatient (CLI) | payer MEDICARE, SELFPAY ==
--- NOTE | 2022-01-25 07:45 | DI.MRI_ITS ---
Exam(s) MR LUMBAR SPINE WO EXAM: MR LUMBAR SPINE WO CLINICAL HISTORY: ACUTE severe l radiculopathy;not responsive to meds/PT,M54.16. TECHNIQUE: Multiplanar multisequence MRI of the Lumbar spine was performed. COMPARISON: MR MRI - LUMBAR SPINE WO CONTRAST from 01/09/2018 CR XR LUMBAR SPINE COMPLETE from 12/27/2021 CT scan 01/18/2022 was also reviewed FINDINGS: Conus medullaris is at normal level. There is no evidence of conus mass nor subjacent clumping of in trathecal nerve roots to suggest arachnoiditis. The distal thecal sac appears unremarkable.There is no evidence of Tarlov intrasacral cysts nor other significant findings within the sacral canal Bones:There are no fractures nor ominous osseous lesions in the lumbar vertebral bodies and visualize d sacrum. With respect to the individual levels... T12-L1: Unremarkable L1-2: Normal disc height and signal. No disc herniation nor central canal stenosis.No foraminal steno sis L2-3: Normal disc height. No disc herniation nor central canal stenosis.No foraminal stenosis.No face t arthropathy. L3-4: Normal disc height. No disc herniation or central canal stenosis.No foraminal stenosis.No face t arthropathy. L4-5: Normal disc height and signal. Again noted is grade 1 anterolisthesis of L4 upon L5, unchanged , with approximately 3 millimeters anterior slippage of L4 upon L5, this related to advanced bilatera l facet joint arthropathy. There are no pars defects at this level. There is no distinct disc herni ation at this level. There is moderate central spinal canal stenosis, this related to symmetrical an nular bulging, short AP dimensions the pedicles, ligamentum flavum hypertrophy and the facet arthropa thy. There is no significant foraminal stenosis, with preserved fat signal surrounding the exiting n erve roots bilaterally at this level. There is mild disc height loss on the right side of this disc space but not enough to result in vertical foraminal stenosis. L5-S1: Preserved disc height and signal. Again noted is a posterolateral left disc protrusion which occupies part of the left lateral recess and compression of the adjacent S1 nerve root. There is axel ateral facet arthropathy again noted at this level. Central canal dimensions are otherwise within no rmal limits. There is no significant right-sided foraminal stenosis at this level. On the left side there is mild foraminal stenosis. Soft tissues: paraspinal soft tissues appear unremarkable. IMPRESSION: 1. Minimal if any significant change when compared to the prior MRI scan of 01/09/2018. 2. Small posterolateral left disc herniation at L5-S1 level again noted. Mild-moderate unilateral le ft-sided foraminal stenosis at this level noted. 3. Mild degenerative anterolisthesis of L4 upon L5 is also again noted, unchanged and not associated with foraminal stenosis. There is, however, mild-moderate central spinal canal stenosis again noted at this level. DATA REPOSITORY:
--- NOTE | 2022-01-25 07:45 | DI.CTLCSR_ITS ---
Exam(s) CT CHEST LUNG CANCER SCREEN EXAM: CT CHEST LUNG CANCER SCREEN CLINICAL HISTORY: Screening for lung cancer,FORMER SMOKER, Z87.891. TECHNIQUE: Imaging Protocol: Low Dose Technique CONTRAST MATERIAL: None COMPARISON: CT CT CHEST WO from 05/27/2020 FINDINGS: CHEST: LUNGS: There is stable appearing mild infiltrate in the medial segment of the right middle lobe. No new findings in the right upper lobe.. In the right lower lobe there is a 4 millimeter nodule unchan ged. Lower down 1 more posteriorly there is a 5 millimeter nodule, also unchanged, and in the adjace nt 3 millimeter nodule, also unchanged.. In the anterior basal segment of the right lower lobe there is an unchanged 2 millimeter pleural base nodule. No new right lung nodules. No pleural effusions. In the opposite-left lung there is an unchanged 1-2 millimeter pleural base nodule in left upper lo be. Increased markings in the superior lingular segment are unchanged. There is a unchanged 4 x 3 m illimeter pleural base nodule in the lateral aspect of the anterior basal segment of the left lower l obe. No pleural effusion. No pleural effusions. MEDIASTINUM: There is no obvious hilar nor mediastinal adenopathy. CARDIAC: Heart size is normal. There is no pericardial effusion.Caliber of the thoracic aorta is upp er normal limits. OTHER: OSSEOUS: No significant osseous lesions.. IMPRESSION: 1. Previously described bilateral sub cm lung nodules remain stable. No new nodules evident. No ple ural effusions. No intrathoracic adenopathy. 2. No osseous lesions. 3. Lung RADS Cat 2 - Benign Appearance / Behavior: Nodules with a very low likelihood of becoming a c linically active cancer due to size or lack of growth Lung-RADS 1.0 CATEGORIES: Category 0 - Prior chest CT exam(s) being located for comparison. Category 1 - Annual screening in 12 months. No nodules or definitely benign nodules. Category 2 - Annual screening in 12 months. Benign appearance. Nodules with low likelihood of becomin g active cancer. Category 3 - 6-month follow-up. Probably benign. Short-term follow-up suggested. Nodules with low lik elihood of becoming active cancer. Category 4A - 3-month follow-up and CT/PET if >8 mm in size. Suspicious finding. Findings which requi re additional testing. Category 4B - Findings which require additional testing and tissue sampling. Category 4X - Category 3 or 4 nodules with additional features or imaging findings that increases the suspicion of malignancy. Modifier S- Potentially clinically significant findings (non lung cancer) RADIATION DOSE DELIVERED: 70.51mGy.cm Total DLP 1.84mGy CTDIvol DATA REPOSITORY: All CT scans at this facility are submitted to the National Radiology Data Registry (NRDR) Dose Index Registry (DIR) with the [employer] (A[employer]). RADIATION OPTIMIZATION: All CT scans at this facility use at least one of these dose optimization te chniques: automated exposure control; mA and/or kV adjustment per patient size (includes targeted exa ms where dose is matched to clinical indication); or iterative reconstruction.
== END ==
PROVIDERS: PCP Family Medicine; Visit Provider Family Medicine
DX: Z87.891 Personal history of nicotine dependence; Z12.2 Encounter for screening for malignant neoplasm of respiratory organs; M48.061 Spinal stenosis, lumbar region without neurogenic claudication; M51.27 Other intervertebral disc displacement, lumbosacral region; M43.16 Spondylolisthesis, lumbar region; R91.8 Other nonspecific abnormal finding of lung field
CPT/HCPCS: 71271; 72148

== ENCOUNTER 2022-01-30 13:15 | Observation (INO) | payer MEDICARE, SELFPAY ==
[2022-01-30] VITALS (31 sets, daily range): BP systolic 116–135; BP diastolic 58–86; PULSE 56–76; RESP 11–30; TEMP 36.5–36.8; O2SAT 95–100
--- NOTE | 2022-01-30 13:15 | RT.EKG_ITS ---
APPROVED REPORT Exam: Resting ECG Reason for Exam: chest pain Patient Location: E HR:69 bpm ECG Measurements Heart Rate 69 AXIS MS 177 P 62 QRSd 82 QRS 29 QT 398 T 37 QTc 425 Conclusion Sinus rhythm...normal P axis, V-rate 60- 99 sinus rhythm at 69, normal axis, no acute ischemic changes, nondiagnostic EKG
--- NOTE | 2022-01-30 13:37 | W.ED.GENAD ---
Discharge Plan Disposition Patient Disposition: [facility] INPATIENT Condition: Good Discharge Details Chief Complaint: Chest Pain Clinical Impression: Chest pain Admit Date/Time: 01/30/22 16:25 Admit Provider: Ender Lott Attending Provider: Ender Lott Primary Care Provider: Allie Blackmon ED Provider: Stormy Douglas Discharge Instructions Activity:: Activity as Tolerated Equipment/Supplies:: No Equipment Needed Diet:: Low Sodium Discharge Orders Discharge Orders: Discharge Order (Routine); Ordered 01/31/22 Ordered By: Cathy Perdomo Discharge Data Discharge Date/Time-TO BE ENTERED AT DEPARTURE: 01/30/22 17:55 Medical Decision Making Concern for acute coronary syndrome, musculoskeletal pain, pulmonary embolism, other. Exam/history at this time is not consistent with acute aortic pathology, sepsis, acute emergent carotid pathology, impending airway compromise plan for EKG, chest x-ray, telemetry, screening labs, and 162 mg aspirin, IV placement. Will monitor and reassess. labs reviewed, Trop negative. Patient reporting return of mild pain in her right neck. Will give nitroglycerin. Patient reports complete resolution of pain after nitroglycerin. Patient is moderate risk by heart score, plan for admission for further evaluation/treatment. Patient is amenable. Medical Records Medical records reviewed: Yes I reviewed the patient's medical records. Imaging Data Radiologic Study: Attestation: I personally reviewed and interpreted this imaging study as follows: Radiologist's impression: EXAM:? XR PORTABLE CHEST AP CLINICAL HISTORY:? chest pain TECHNIQUE:? 2D digital imaging was performed. COMPARISON:? CT CT CHEST LUNG CANCER SCREEN from 01/25/2022 FINDINGS: LUNGS: Clear. No pleural abnormality seen. HEART: Normal. AORTA: Normal. BONES: Unremarkable for age.? Soft tissues: Unremarkable. IMPRESSION: No acute? findings. Lab Data Lab results reviewed: Yes I reviewed the patient's lab results. ECG Data Attestation: I personally reviewed and interpreted this ECG (s) as follows: Interpretation: EKG shows sinus rhythm at 69, normal axis, no acute ischemic changes, nondiagnostic EKG HPI General Mode of arrival: ambulatory. Date/Time Provider Initiated Documentation: 01/30/22 13:32. Limitations to Documentation: no limitations. Information obtained by: patient, family, RN notes reviewed and old records reviewed. HPI Narrative: Cathy Carey is a 66-year-old woman with a history of [id number] diabetes, hypertension, COPD, GERD, hyperlipidemia, obstructive sleep apnea, pericarditis in the distant past presenting to the emergency department with chest pain. Patient reports that at approximately 12:30 this afternoon patient was sitting at the table and talking with her when she developed sudden onset right-sided chest pain that radiated into her right neck and jaw. Patient reports that she also felt somewhat nauseous, and her told her that she was pale. Patient reports that after about 5 minutes of the pain, her gave her one of his nitroglycerin. Patient reports that she took that in addition to 2 baby aspirin, and approximately 4 to 5 minutes later her chest pain seemed to resolve. Patient reports that she developed a headache after taking the nitro which is now resolved. She denies any current chest pain and states that she feels essentially back to baseline. She denies any recent illness. Patient reports that she has had left-sided sciatica with ongoing pain for the past 6 weeks, denies any other pain. Denies fever, cough, shortness of breath, vomiting, diarrhea, numbness, weakness, rash. Patient reports that she recently drove to [facility] but has had no travel otherwise. She denies recent surgeries or procedures. Patient reports that she has had a stress test but believes it was significantly prior to 5 years ago. Patient reports that she did have a similar episode of pain that occurred about 2 years ago. Patient reports that she was by herself at the time and did not seek medical care. Related Data Home Medications Medication Instructions Recorded Confirmed acetaminophen 500 mg tablet 1,000 mg PO Q8H PRN PRN #60 tabs 08/28/17 02/07/22 (Acetaminophen Extra Strength) polyethylene glycol 3350 17 gram 17 g PO DAILY PRN #255 grams 11/08/17 02/07/22 oral powder packet (Miralax) lactobacillus combination no.8 3 3,000 mmu cells PO HS 07/25/18 02/07/22 billion cell capsule (Adult Probiotic) ibuprofen 600 mg tablet 600 mg PO TID PRN 06/02/19 02/07/22 escitalopram oxalate 20 mg tablet 20 mg PO DAILY #90 tabs 11/11/20 02/07/22 potassium chloride 20 mEq 20 meq PO DAILY #90 tabs 02/22/21 02/07/22 tablet,extended release chlorthalidone 25 mg tablet 25 mg PO DAILY #90 tabs 04/04/21 02/07/22 fluticasone fur. 100 mcg-umeclid 1 inh inhalation Q24H #60 ea 04/04/21 02/07/22 62.5 mcg-vilant 25 mcg inhalat.powder (Trelegy Ellipta) ergocalciferol (vitamin D2) 1,250 50,000 unit PO QWEEK #13 caps 10/26/21 02/07/22 mcg (50,000 unit) capsule bupropion HCl 150 mg 24 hr tablet, 150 mg PO QAM #90 tabs 12/08/21 02/07/22 extended release metoprolol succinate 25 mg 25 mg PO DAILY #90 tabs 12/08/21 02/07/22 tablet,extended release 24 hr glyburide 5 mg tablet 5 mg PO DAILY #90 tabs 12/22/21 02/07/22 lidocaine 5 % topical patch 1 patch topical DAILY #30 ea 12/27/21 02/07/22 cyclobenzaprine 10 mg tablet 10 mg PO TID PRN muscle spasm #90 01/05/22 02/07/22 tabs gabapentin 300 mg capsule 300 mg PO TID #90 caps 01/19/22 02/07/22 pantoprazole 40 mg tablet,delayed 40 mg PO DAILY@0730 #30 tabs 01/31/22 02/07/22 release oxycodone 10 mg tablet 10 mg PO TID PRN pain #20 tabs 02/07/22 02/07/22 Previous Rx's Medication Instructions Recorded acetaminophen 500 mg tablet 1,000 mg PO Q8H PRN PRN #60 tabs 08/28/17 (Acetaminophen Extra Strength) escitalopram oxalate 20 mg tablet 20 mg PO DAILY #90 tabs 11/11/20 potassium chloride 20 mEq 20 meq PO DAILY #90 tabs 02/22/21 tablet,extended release chlorthalidone 25 mg tablet 25 mg PO DAILY #90 tabs 04/04/21 fluticasone fur. 100 mcg-umeclid 1 inh inhalation Q24H #60 ea 04/04/21 62.5 mcg-vilant 25 mcg inhalat.powder (Trelegy Ellipta) ergocalciferol (vitamin D2) 1,250 50,000 unit PO QWEEK #13 caps 10/26/21 mcg (50,000 unit) capsule bupropion HCl 150 mg 24 hr tablet, 150 mg PO QAM #90 tabs 12/08/21 extended release metoprolol succinate 25 mg 25 mg PO DAILY #90 tabs 12/08/21 tablet,extended release 24 hr glyburide 5 mg tablet 5 mg PO DAILY #90 tabs 12/22/21 lidocaine 5 % topical patch 1 patch topical DAILY #30 ea 12/27/21 cyclobenzaprine 10 mg tablet 10 mg PO TID PRN muscle spasm #90 01/05/22 tabs gabapentin 300 mg capsule 300 mg PO TID #90 caps 01/19/22 pantoprazole 40 mg tablet,delayed 40 mg PO DAILY@0730 #30 tabs 01/31/22 release oxycodone 10 mg tablet 10 mg PO TID PRN pain #20 tabs 02/07/22 Allergies Allergy/AdvReac Type Severity Reaction Status Date / Time No Known Allergies Allergy Verified 02/07/22 10:41 General Stated Complaint: Chest Pain JUSTYNA: 2 Review of Systems Narrative: Constitutional: denies fevers Eyes: denies eye pain ENT: denies ear pain, dental pain, sore throat Cardiovascular: denies edema, reports chest pain Respiratory: denies SOB, cough GI: denies abdominal pain, vomiting, diarrhea : denies flank pain MSK: denies neck pain, arthralgias, myalgias, reports left lower back/sciatic pain that is chronic and unchanged Skin: denies rash Neuro: denies headaches, numbness, weakness PFSH All Active Problems (Updated 02/13/22 @ 09:51 by Stormy Douglas MD) Chest pain (Acute) Acute left lumbar radiculopathy (Acute) COVID-19 (Acute) 12/12/21 Vaccinated, booster Moderna/pps Skin abnormalities (Acute) Muscle spasm (Acute) Weakness (Acute) Abdominal pain (Acute) Vitamin D deficiency disease (Acute) Thoracic back pain (Acute) Arm pain (Acute) Kyphosis (Acute) Cervical radiculitis (Acute) MRI C6-7 nerve root impingement Shingles (Acute) Restless (Acute) Sleep apnea (Acute) Pulmonary nodule less than 6 mm in diameter with low risk for malignant neoplasm (Acute) Pulmonary nodule (Acute) Shortness of breath (Acute) Diabetes mellitus (Chronic 12/31/17) a1c 5.1 Essential hypertension (Chronic 03/11/13) Elevated blood sugar (Acute) Chronic rectal pain (Acute) Fissure in ano (Acute) Depression (Chronic) Atrophy of vagina (Acute 10/16/16) Chronic obstructive lung disease (Chronic) Medical History Abdominal mass 09/11/05 Anxiety Arthritis of right acromioclavicular joint (05/30/17) C. difficile colitis Cardiac murmur Pt. 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 Herpes zoster complicated 08/11/13 Herpes zoster with complication (08/11/13) History of depression HTN (hypertension) Hx of Clostridium difficile infection Hyperlipidemia Incomplete tear of right rotator cuff (09/07/17) Joint pain of leg 07/15/12 Knee pain Knee pain Lumbar back pain with radiculopathy affecting left lower extremity (12/31/17) Migraine Obstructive sleep apnea syndrome (10/27/11) excessive daytime sleepiness cannot tolerate CPAP machine JESSICA (obstructive sleep apnea) Other fatigue Other specified visual disturbances (07/15/12) Other visual disturbances 07/15/12 Ovarian cyst, complex Pain of joint of lower extremity (07/15/12) Pelvic floor dysfunction (10/16/16) Pericarditis acute Pericarditis (~1977) Restless legs syndrome (10/27/11) Shoulder joint pain 07/15/12 Shoulder joint pain (07/15/12) Smoker quit 05/14/2009 Smoker Superior glenoid labrum lesion of shoulder (10/30/17) Syncope normal echo w/ EF 70%; Holter-neg.; MRI shows a meningioma which has been stable now x 4 mos. Urinary frequency (08/18/14) Ventral hernia with obstruction but no gangrene QUESTION OF RIGHT Vertigo (03/02/15) Surgical History Arthroscopy, Shoulder 08/28/17 (R) Biopsy of breast X 2 Colonoscopy - MAC (01/28/16) H/O lumpectomy History of oophorectomy, unilateral History of tonsillectomy Hx of discectomy Hysterectomy, Laproscopic (~1980) Oophrectomy, Left S/P breast biopsy S/P laparoscopic hysterectomy 05/14/80 Family History Mother Diabetes Essential hypertension Dementia Depression Heart disease Father Diabetes Essential hypertension Heart disease Brother No problems noted. Brother Essential hypertension Depression Hyperlipidemia Maternal Grandmother Diabetes Essential hypertension Heart disease Brother Essential hypertension Heart disease Maternal Grandfather No problems noted. Paternal Grandfather Heart disease Paternal Grandmother Stroke Son No problems noted. Son Heart disease Mental disorder Depression Brother Heart disease Brother No problems noted. 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 Pets and animals: Yes Pets and animals: dog(s) Sexually active: No Do you think of yourself as: straight/heterosexual Current gender identity: female What is your relationship status?: How often do you talk on the phone with friends or family?: three or more times per week How often do you get together with friends or relatives?: twice per week How often do you attend confucianist or anglican services?: 1-3 times per year Do you belong to any clubs or organized social groups?: no Panel score (0-1 are the most socially isolated patients): 2 Hien/Presybeterian: Jewish Seatbelt use: always Drive intox or ride w/intox driver/sales workers: No Do you feel safe at home: Yes Do you feel safe in your relationship?: Yes Exam Narrative Exam Narrative: Constitutional: well and [id number], pleasant, conversing normally HENT: head atraumatic/normocephalic/normal inspection, mucous membranes moist Eyes: conjunctiva normal, sclera normal, pupils 3mm b/l Neck: no stridor, normal ROM, trachea midline Chest: normal inspection, mild tenderness over the right anterior chest that reproduces pain, no crepitus, no deformity, no mass Resp: normal work of breathing, speaking in full sentences Cardio: normal rate, normal rhythm Skin: warm, dry, normal color, no rash Neuro: alert, not altered, grossly non-focal, normal tone Ext: no edema, no posterior calf TTP Psych: normal mood, normal affect, normal behavior Course Vital Signs Vital signs: Vital Signs Temperature 36.7 C 01/30/22 13:26 Pulse 73 01/30/22 13:26 Respiratory Rate 18 01/30/22 13:26 Blood Pressure 116/70 01/30/22 13:26 Pulse Oximetry 95 01/30/22 13:26 Temperature 36.7 C 01/30/22 13:26 Temperature Source Skin 01/30/22 13:26 Pulse 73 01/30/22 13:26 Respiratory Rate 18 01/30/22 13:26 Respiratory Effort 01/30/22 13:33 Blood Pressure 116/70 01/30/22 13:26 Blood Pressure Position Sitting 01/30/22 13:26 Pulse Oximetry 95 01/30/22 13:26 Oxygen Delivery Method Room Air 01/30/22 13:26 Oxygen Flow Rate 0 01/30/22 13:26 Pain Level 2 01/30/22 13:26 Comment 01/30/22 13:26 PAWSS Have you Been Recently Intoxicated or Drunk Within the Last 30 days?: No Have you Ever Experienced Previous Episodes of Alcohol Withdrawal?: No Have you ever Experienced Withdrawal Seizures?: No Have you ever Experienced Delirium Tremens(DT)s?: No Have you ever undergone Alcohol Rehabilitation Treatment (i.e, inpt ot outpatient treatment programs)?: No Have you ever Experienced Blackouts?: No Have you ever Combined Alcohol with other Downers within the last 90 days?: No Have you ever Combined Alcohol with any other Substance of Abuse during the last 90 days?: No Positive Blood Alcohol level on Presentation? [PCS.BAL]: No Evidence of Increased Autonomic Activity (i.e. HR>120, tremor, sweating, agitation, nausea)?: No Result: 0
[2022-01-30 14:11] LABS: Abs Immature Grans 0.04 10^3/uL (0.0-0.06); Absolute Monocyte Count 0.71 10^3/uL (0.1-0.8); Absolute Neutrophil Count 7.75 10^3/uL (1.2-6.7); Basophils % 0.3; Eosinophils % 1.7; HCT 43.4 % (36.0-46.0); HGB 13.9 g/dL (11.2-15.7); Immature Grans % 0.3; Lymphocytes % 24.2; MCH 30.2 pg (27.0-33.0); MCV 94 fL (80-95); Monocytes % 6.2; Neutrophils % 67.3; Platelet Count 309 10^3/uL (130-400); RBC 4.61 10^6/uL (3.93-5.22); RDW 13.2 % (11.7-14.6); RDW-SD 45.4 fL; WBC 11.51 10^3/uL (4.4-10.8)
[2022-01-30 14:12] LABS: Absolute Basophil Count 0.03 10^3/uL (0.0-0.2); Absolute Lymphocyte Count 2.79 10^3/uL (1.2-3.4)
[2022-01-30 14:29] LABS: ALT 47 U/L (14-59); AST 25 U/L (15-37); Albumin 3.3 g/dL (3.4-5.0); Alkaline Phosphatase 72 U/L (46-116); Anion Gap 5.1 mmol/L (3-11); BUN 23 mg/dL (7-18); Bilirubin, Total 0.3 mg/dL (0.2-1.0); CO2 32.9 mmol/L (21.0-32.0); CREATININE 0.8 mg/dL (0.55-1.02); Chloride 104 mmol/L (98-107); Estimated GFR 80.21 (mL/min/1.73m2); Glucose 125 mg/dL (74-106); Magnesium 2.2 mg/dL (1.8-2.4); Potassium 3.8 mmol/L (3.5-5.1); Sodium 142 mmol/L (136-145); Total Protein 7.3 g/dL (6.4-8.2); Troponin I < 50 ng/L (<or=60)
[2022-01-30] MEDS: Aspirin 81 MG CHEW 162 MG CH (14:29)
[2022-01-30 14:39] LABS: D-Dimer 436 ng/mlFEU (<500)
[2022-01-30] MEDS: nitroGLYcerin 0.4 MG TAB (14:40)
--- NOTE | 2022-01-30 14:57 | DI.RAD_ITS ---
Exam(s) XR PORTABLE CHEST AP EXAM: XR PORTABLE CHEST AP CLINICAL HISTORY: chest pain TECHNIQUE: 2D digital imaging was performed. COMPARISON: CT CT CHEST LUNG CANCER SCREEN from 01/25/2022 FINDINGS: LUNGS: Clear. No pleural abnormality seen. HEART: Normal. AORTA: Normal. BONES: Unremarkable for age. Soft tissues: Unremarkable. IMPRESSION: No acute findings. DATA REPOSITORY: RADIATION DOSE DELIVERED:
[2022-01-30 16:14] LABS: Source Nasal/Nares
[2022-01-30 16:51] LABS: COVID-19 PCR Negative (Negative)
[2022-01-30 17:36] LABS: Troponin I < 50 ng/L (<or=60)
--- NOTE | 2022-01-30 18:47 | HPE_ITS ---
Assessment and Plan Assessment and plan (1) Chest pain: Status: Acute Assessment and plan: Chest pain resolved; no shortness of breath, no headache, no arm/shoulder pain. No jaw pain - monitor; labs; stress test - home w event monitor (2) Diabetes mellitus: Status: Chronic Assessment and plan: Stable - (3) Essential hypertension: Status: Chronic Assessment and plan: monitor - continue home meds (4) Depression: Status: Chronic Assessment and plan: Stable - continue home meds. (5) Chronic obstructive lung disease: Status: Chronic Assessment and plan: Stable - continue home meds. (6) DVT prophylaxis: Status: Acute Assessment and plan: Enoxaparin (7) Discharge planning issues: Status: Acute Assessment and plan: Stress test, event monitor, follow up with cardiology- home with no services History of Present Illness History of Present Illness Chief Complaint: Chest pain Narrative: This is a 66-year-old woman with a history of [id number] diabetes, hypertension, COPD, GERD, hyperlipidemia, obstructive sleep apnea, pericarditis in the distant past who presented to the [facility] emergency department with chest pain.? The patient reported at approximately 12:30 this afternoon she was sitting at the table talking with her when she developed sudden onset right-sided chest pain that radiated into her right neck and jaw. The patient reported she also felt somewhat nauseous, and her told her that she was pale.? Patient reports that after about 5 minutes of the pain, her gave her one of his nitroglycerin.? Patient reported that she took that in addition to 2 baby aspirin, and approximately 4 to 5 minutes later her chest pain seemed to resolve.? Patient reported that she developed a headache after taking the nitro which quickly resolved.? She denied any current chest pain and stated that she felt essentially back to baseline.? She denied any recent illness.? Patient reports that she has had left-sided sciatica with ongoing pain for the past 6 weeks, denies any other pain.? Denies fever, cough, shortness of breath, vomiting, diarrhea, numbness, weakness, rash.? Patient reported that she recently drove to [employer] but has had no travel otherwise.? She denied recent surgeries or procedures.? Patient reported that she has had a stress test but believes it was significantly prior to 5 years ago.? Patient reported that she did have a similar episode of pain that occurred about 2 years ago.? Patient reported that she was by herself at the time and did not seek medical care. She had no shortness of breath, she did endorse brief diaphoresis. She did not feel dizzy or lightheaded. She is placed on observation status on the medical floor on telemetry. Review of Systems All systems reviewed & are unremarkable except as noted in HPI and below PFSH All Active Problems (Updated 01/30/22 @ 20:35 by Cathy Perdomo NP) Discharge planning issues (Acute) DVT prophylaxis (Acute) Chest pain (Acute) Acute left lumbar radiculopathy (Acute) COVID-19 (Acute) 12/12/21 Vaccinated, booster Moderna/pps Skin abnormalities (Acute) Muscle spasm (Acute) Weakness (Acute) Abdominal pain (Acute) Vitamin D deficiency disease (Acute) Thoracic back pain (Acute) Arm pain (Acute) Kyphosis (Acute) Cervical radiculitis (Acute) MRI C6-7 nerve root impingement Shingles (Acute) Restless (Acute) Sleep apnea (Acute) Pulmonary nodule less than 6 mm in diameter with low risk for malignant neoplasm (Acute) Pulmonary nodule (Acute) Shortness of breath (Acute) Diabetes mellitus (Chronic 12/31/17) a1c 5.1 Essential hypertension (Chronic 03/11/13) Elevated blood sugar (Acute) Chronic rectal pain (Acute) Fissure in ano (Acute) Depression (Chronic) Atrophy of vagina (Acute 10/16/16) Chronic obstructive lung disease (Chronic) Medical History (Updated 01/30/22 @ 20:35 by Cathy Perdomo NP) Abdominal mass 09/11/05 Anxiety Arthritis of right acromioclavicular joint (05/30/17) C. difficile colitis Cardiac murmur Pt. 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 Herpes zoster complicated 08/11/13 Herpes zoster with complication (08/11/13) History of depression HTN (hypertension) Hx of Clostridium difficile infection Hyperlipidemia Incomplete tear of right rotator cuff (09/07/17) Joint pain of leg 07/15/12 Knee pain Knee pain Lumbar back pain with radiculopathy affecting left lower extremity (12/31/17) Migraine Obstructive sleep apnea syndrome (10/27/11) excessive daytime sleepiness cannot tolerate CPAP machine JESSICA (obstructive sleep apnea) Other fatigue Other specified visual disturbances (07/15/12) Other visual disturbances 07/15/12 Ovarian cyst, complex Pain of joint of lower extremity (07/15/12) Pelvic floor dysfunction (10/16/16) Pericarditis acute Pericarditis (~1977) Restless legs syndrome (10/27/11) Shoulder joint pain 07/15/12 Shoulder joint pain (07/15/12) Smoker quit 05/14/2009 Smoker Superior glenoid labrum lesion of shoulder (10/30/17) Syncope normal echo w/ EF 70%; Holter-neg.; MRI shows a meningioma which has been stable now x 4 mos. Urinary frequency (08/18/14) Ventral hernia with obstruction but no gangrene QUESTION OF RIGHT Vertigo (03/02/15) Surgical History Arthroscopy, Shoulder 08/28/17 (R) Biopsy of breast X 2 Colonoscopy - MAC (01/28/16) H/O lumpectomy History of oophorectomy, unilateral History of tonsillectomy Hx of discectomy Hysterectomy, Laproscopic (~1980) Oophrectomy, Left S/P breast biopsy S/P laparoscopic hysterectomy 05/14/80 Family History Mother Diabetes Essential hypertension Dementia Depression Heart disease Father Diabetes Essential hypertension Heart disease Brother No problems noted. Brother Essential hypertension Depression Hyperlipidemia Maternal Grandmother Diabetes Essential hypertension Heart disease Brother Essential hypertension Heart disease Maternal Grandfather No problems noted. Paternal Grandfather Heart disease Paternal Grandmother Stroke Son No problems noted. Son Heart disease Mental disorder Depression Brother Heart disease Brother No problems noted. 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 Pets and animals: Yes Pets and animals: dog(s) Sexually active: No Do you think of yourself as: straight/heterosexual Current gender identity: female What is your relationship status?: How often do you talk on the phone with friends or family?: three or more times per week How often do you get together with friends or relatives?: twice per week How often do you attend restoration or scientologist services?: 1-3 times per year Do you belong to any clubs or organized social groups?: no Panel score (0-1 are the most socially isolated patients): 2 Hien/Hinduism: Church Special hien needs: No Seatbelt use: always Drive intox or ride w/intox newspaper 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: No Do you feel safe at home: Yes Do you feel safe in your relationship?: Yes Meds Allergies and Home Medications Allergies Allergy/AdvReac Type Severity Reaction Status Date / Time No Known Allergies Allergy Verified 01/30/22 13:33 Home Medications Medication Instructions Recorded Confirmed Type acetaminophen 500 mg tablet 1,000 mg PO Q8H PRN PRN #60 tabs 08/28/17 01/30/22 Rx (Acetaminophen Extra Strength) polyethylene glycol 3350 17 gram 17 g PO DAILY PRN #255 grams 11/08/17 01/30/22 History oral powder packet (Miralax) lactobacillus combination no.8 3 3,000 mmu cells PO HS 07/25/18 01/30/22 History billion cell capsule (Adult Probiotic) ibuprofen 600 mg tablet 600 mg PO TID PRN 06/02/19 01/30/22 History escitalopram oxalate 20 mg tablet 20 mg PO DAILY #90 tabs 11/11/20 01/30/22 Rx lorazepam 0.5 mg tablet 0.5 mg PO BID PRN anxiety #10 tabs 12/07/20 01/30/22 Rx adjuvant AS01B (PF)vial 1 of 2 1 ml IM ONCE #0.5 mL 02/22/21 01/30/22 Rx (Shingrix Adjuvant Component (PF) intramuscular suspension) potassium chloride 20 mEq 20 meq PO DAILY #90 tabs 02/22/21 01/30/22 Rx tablet,extended release chlorthalidone 25 mg tablet 25 mg PO DAILY #90 tabs 04/04/21 01/30/22 Rx fluticasone fur. 100 mcg-umeclid 1 inh inhalation Q24H #60 ea 04/04/21 01/30/22 Rx 62.5 mcg-vilant 25 mcg inhalat.powder (Trelegy Ellipta) ergocalciferol (vitamin D2) 1,250 50,000 unit PO QWEEK #13 caps 10/26/21 01/30/22 Rx mcg (50,000 unit) capsule bupropion HCl 150 mg 24 hr tablet, 150 mg PO QAM #90 tabs 12/08/21 01/30/22 Rx extended release metoprolol succinate 25 mg 25 mg PO DAILY #90 tabs 12/08/21 01/30/22 Rx tablet,extended release 24 hr glyburide 5 mg tablet 5 mg PO DAILY #90 tabs 12/22/21 01/30/22 Rx lidocaine 5 % topical patch 1 patch topical DAILY #30 ea 12/27/21 01/30/22 Rx cyclobenzaprine 10 mg tablet 10 mg PO TID PRN muscle spasm #90 01/05/22 01/30/22 Rx tabs dexamethasone 4 mg tablet 4 mg PO DAILY #13 tabs 01/17/22 01/30/22 Rx (Decadron) gabapentin 300 mg capsule 300 mg PO TID #90 caps 01/19/22 01/30/22 Rx oxycodone 10 mg tablet 10 mg PO TID PRN pain #20 tabs 01/19/22 01/30/22 Rx Exam Narrative Exam Narrative: Constitutional: well and bst-ynijs-ipitoyqys, pleasant, conversing normally HENT: head atraumatic/normocephalic/normal inspection, mucous membranes moist Eyes: conjunctiva normal, sclera normal, pupils 3mm b/l Neck: no stridor, normal ROM, trachea midline Chest: normal inspection, mild tenderness over the right anterior chest that reproduces pain, no crepitus, no deformity, no mass Resp: normal work of breathing, speaking in full sentences Cardio: normal rate, normal rhythm Skin: warm, dry, normal color, no rash Neuro: alert, not altered, grossly non-focal, normal tone Ext: no edema, no posterior calf TTP Psych: normal mood, normal affect, normal behavior Results Labs Result diagrams: 01/31/22 05:55 01/31/22 05:55 Labs: Laboratory Results - last 24 hr 01/30/22 01/30/22 01/30/22 14:02 14:02 14:02 WBC 11.51 H RBC 4.61 Hgb 13.9 Hct 43.4 MCV 94 MCH 30.2 MCHC 32.0 RDW 13.2 Plt Count 309 MPV 10.0 Immature Gran % 0.3 Neutrophils % 67.3 Lymphocytes % 24.2 Monocytes % 6.2 Eosinophils % 1.7 Basophils % 0.3 Nucleated RBC % 0.0 Absolute Neutrophils 7.75 H Absolute Lymphocytes 2.79 Absolute Monocytes 0.71 Absolute Eosinophils 0.20 Absolute Basophils 0.03 D-Dimer 436 Sodium 142 Potassium 3.8 Chloride 104 Carbon Dioxide 32.9 H Anion Gap 5.1 BUN 23 H Creatinine 0.8 Est GFR (CKD-EPI 2020) 80.21 Glucose 125 H Calcium 9.0 Magnesium 2.2 Total Bilirubin 0.3 AST 25 ALT 47 Alkaline Phosphatase 72 Troponin I < 50 Total Protein 7.3 Albumin 3.3 L COVID-19 Source SARS-CoV-2 (PCR) 01/30/22 01/30/22 16:01 17:02 WBC RBC Hgb Hct MCV MCH MCHC RDW Plt Count MPV Immature Gran % Neutrophils % Lymphocytes % Monocytes % Eosinophils % Basophils % Nucleated RBC % Absolute Neutrophils Absolute Lymphocytes Absolute Monocytes Absolute Eosinophils Absolute Basophils D-Dimer Sodium Potassium Chloride Carbon Dioxide Anion Gap BUN Creatinine Est GFR (CKD-EPI 2020) Glucose Calcium Magnesium Total Bilirubin AST ALT Alkaline Phosphatase Troponin I < 50 Total Protein Albumin COVID-19 Source Nasal/Nares SARS-CoV-2 (PCR) Negative Last Vital Signs Temp 36.5 C 01/30/22 18:09 Pulse 62 01/30/22 18:09 Resp 20 01/30/22 18:09 BP 130/70 01/30/22 18:09 Pulse Ox 98 01/30/22 18:09 PAWSS Have you Been Recently Intoxicated or Drunk Within the Last 30 days?: No Have you Ever Experienced Previous Episodes of Alcohol Withdrawal?: No Have you ever Experienced Withdrawal Seizures?: No Have you ever Experienced Delirium Tremens(DT)s?: No Have you ever undergone Alcohol Rehabilitation Treatment (i.e, inpt ot outpatient treatment programs)?: No Have you ever Experienced Blackouts?: No Have you ever Combined Alcohol with other Downers within the last 90 days?: No Have you ever Combined Alcohol with any other Substance of Abuse during the last 90 days?: No Positive Blood Alcohol level on Presentation? [PCS.BAL]: No Evidence of Increased Autonomic Activity (i.e. HR>120, tremor, sweating, agitation, nausea)?: No Result: 0
[2022-01-30] MEDS: Enoxaparin 40 MG/0.4 ML SYR SC (21:00)
[2022-01-30] MEDS: Gabapentin 300 MG CAP PO (21:00)
[2022-01-30] MEDS: oxyCODONE 10 MG TAB PO (21:07)
[2022-01-31 00:21] VITALS: PULSE 73
[2022-01-31 03:37] VITALS: BP 114/75; PULSE 74; RESP 18; TEMP 36.8; O2SAT 96
[2022-01-31 06:24] LABS: Abs Immature Grans 0.03 10^3/uL (0.0-0.06); Absolute Basophil Count 0.04 10^3/uL (0.0-0.2); Absolute Eosinophil Count 0.17 10^3/uL (0.0-0.7); Absolute Lymphocyte Count 3.07 10^3/uL (1.2-3.4); Absolute Monocyte Count 0.66 10^3/uL (0.1-0.8); Absolute Neutrophil Count 5.63 10^3/uL (1.2-6.7); Basophils % 0.4; Eosinophils % 1.8; HCT 42.8 % (36.0-46.0); HGB 13.6 g/dL (11.2-15.7); Immature Grans % 0.3; MCH 29.8 pg (27.0-33.0); MCHC 31.8 % (32.0-36.0); MCV 94 fL (80-95); MPV 10.1 fL (8.0-11.0); Monocytes % 6.9; Neutrophils % 58.6; Platelet Count 268 10^3/uL (130-400); RBC 4.56 10^6/uL (3.93-5.22); RDW 13.4 % (11.7-14.6); RDW-SD 45.9 fL
[2022-01-31 07:02] LABS: ALT 43 U/L (14-59); AST 19 U/L (15-37); Albumin 2.9 g/dL (3.4-5.0); Alkaline Phosphatase 64 U/L (46-116); Anion Gap 6.6 mmol/L (3-11); BUN 24 mg/dL (7-18); Bilirubin, Total 0.2 mg/dL (0.2-1.0); CO2 31.4 mmol/L (21.0-32.0); CREATININE 0.7 mg/dL (0.55-1.02); Calcium 8.8 mg/dL (8.5-10.1); Chloride 104 mmol/L (98-107); Estimated GFR 94.15 (mL/min/1.73m2); Glucose 124 mg/dL (74-106); Magnesium 2.2 mg/dL (1.8-2.4); Potassium 3.5 mmol/L (3.5-5.1); Sodium 142 mmol/L (136-145); Total Protein 6.7 g/dL (6.4-8.2)
[2022-01-31 08:05] VITALS: BP 108/71; PULSE 80; RESP 16; TEMP 36.3; O2SAT 92
[2022-01-31] MEDS: Budesonide/Formoterol 80/4.5 6.9 GM 60 PUFF INH IH (09:06)
--- NOTE | 2022-01-31 09:50 | INITIAL_ITS ---
- If Service Date Differs Date of service: 01/31/22 Time of Service: 09:50 Care Management Initial Assess REASON FOR HOSPITALIZATION:: Chest Pain PAST MEDICAL HISTORY/PAST SURGICAL HISTORY:: All Active Problems (Updated 01/30/22 @ 20:35 by Cathy Perdomo NP). Discharge planning issues (Acute). DVT prophylaxis (Acute). Chest pain (Acute). Acute left lumbar radiculopathy (Acute). COVID-19 (Acute). 12/12/21. Vaccinated, booster Moderna/pps. Skin abnormalities (Acute). Muscle spasm (Acute). Weakness (Acute). Abdominal pain (Acute). Vitamin D deficiency disease (Acute). Thoracic back pain (Acute). Arm pain (Acute). Kyphosis (Acute). Cervical radiculitis (Acute). MRI C6-7 nerve root impingement. Shingles (Acute). Restless (Acute). Sleep apnea (Acute). Pulmonary nodule less than 6 mm in diameter with low risk for malignant neoplasm (Acute). Pulmonary nodule (Acute). Shortness of breath (Acute). Diabetes mellitus (Chronic 12/31/17). a1c 5.1. Essential hypertension (Chronic 03/11/13). Elevated blood sugar (Acute). Chronic rectal pain (Acute). Fissure in ano (Acute). Depression (Chronic). Atrophy of vagina (Acute 10/16/16). Chronic obstructive lung disease (Chronic). Medical History (Updated 01/30/22 @ 20:35 by Cathy Perdomo NP). Abdominal mass. 09/11/05. Anxiety. Arthritis of right acromioclavicular joint (05/30/17). C. difficile colitis. Cardiac murmur. Pt. stated this was years ago and does not have a car diologist. Compression neuropathy of lower extremity. 07/15/12. Compression neuropathy of lower extremity (07/15/12). COPD (chronic obstructive pulmonary disease). Diverticulosis. Family history of hypertension. 08/11/13. Family history of hypertension (08/11/13). Fatigue. Fibrocystic disease of breast. S/P TWO BIOPSIES TWO ASPIRATIONS; REPORTED BREAST MASS ON 07/[address] SOL; NO F/U FOUND;. 05/22 MAMMO NEG. Gastroesophageal reflux disease with esophagitis (07/15/12). GERD (gastroesophageal reflux disease). Heart murmur. 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 SYNCOPE; ECHO NL, EF 70%; HOLTER NEG; MRI: BENIGN PINEAL CYST/MENINGIOMA; 09/18 MRI: STABLE L PARAFALCINE. MENINGIOMA. Herpes zoster complicated. 08/11/13. Herpes zoster with complication (08/11/13). History of depression. HTN (hypertension). Hx of Clostridium difficile infection. Hyperlipidemia. Incomplete tear of right rotator cuff (09/07/17). Joint pain of leg. 07/15/12. Knee pain. Knee pain. Lumbar back pain with radiculopathy affecting left lower extremity (12/31/17). Migraine. Obstructive sleep apnea syndrome (10/27/11). excessive daytime sleepiness. cannot tolerate CPAP machine. JESSICA (obstructive sleep apnea). Other fatigue. Other specified visual disturbances (07/15/12). Other visual disturbances. 07/15/12. Ovarian cyst, complex. Pain of joint of lower extremity (07/15/12). Pelvic floor dysfunction (10/16/16). Pericarditis. acute. Pericarditis (~1977). Restless legs syndrome (10/27/11). Shoulder joint pain. 07/15/12. Shoulder joint pain (07/15/12). Smoker. quit 05/14/2009. Smoker. Superior glenoid labrum lesion of shoulder (10/30/17). Syncope. normal echo w/ EF 70%; Holter-neg.; MRI shows a meningioma which has been stable now x 4 mos. Urinary frequency (08/18/14). Ventral hernia with obstruction but no gangrene. QUESTION OF RIGHT. Vertigo (03/02/15). Surgical History . Arthroscopy, Shoulder. 08/28/17 (R). Biopsy of breast. X 2. Colonoscopy - MAC (01/28/16). H/O lumpectomy. History of oophorectomy, unilateral. History of tonsillectomy. Hx of discectomy. Hysterectomy, Laproscopic (~1980). Oophrectomy, Left. S/P breast biopsy. S/P laparoscopic hysterectomy. 05/14/80 PREVIOUS FUNCTIONAL STATUS/SOCIAL/FAMILY SUPPORTS:: Cathy lives in [place] with her Jamie. ADVANCE DIRECTIVES:: On file, [facility] is son Tae Carey Alt. Agent is Sofie David. Has patient been provided with info about the portal/API?: Yes Did the patient sign up for the portal?: Yes (Prior to admission.) CODE STATUS:: Full Code INSURANCE COVERAGE / FINANCIAL ISSUES:: [employer] Senior Supplemental Ins. Medicare PRIMARY CARE PHYSICIAN:: Dr. Allie Blackmon, [facility]. POTENTIAL DISCHARGE NEEDS:: Stress test, event monitor, cardiology follow up. PATIENT/FAMILY EDUCATION NEEDS:: Review discharge instructions, limitations, medications and plan to follow up with community providers. Review ask me three. TRANSPORTATION:: Via private vehicle with family. PLAN:: Anticipate Cathy will discharge home via private vehicle with family when medically ready. She will follow up with community providers and discharge plan of care as prescribed.
[2022-01-31 11:07] VITALS: BP 146/81; PULSE 73; RESP 16; TEMP 35.9; O2SAT 96
[2022-01-31] MEDS: Pantoprazole 40 MG TABCR PO (12:00)
--- NOTE | 2022-01-31 12:30 | DI.NM_ITS ---
APPROVED REPORT Exam: Pharmacologic Patient Location: In-Patient Room/Bed: 214 Ordering Provider:DAVID ROBERT, Contact Number: BMI: 29.86 Baseline Rhythm: Sinus Rhythm Indications: CHEST PAIN Medical History Medical History: COVID19, Sleep apnea, DM II, HTN, COPD, Depression, GERD, HLD Cardiac Medications: Chlorthalidone, Fluticasone-Umeclid, Glyburide, Metoprolol succinate, Potassium chloride Allergies: No known drug allergies Cardiac Risk Factors: Diabetes (non-insulin), HTN, COPD, Smoking (former) Previous Cardiac Procedures: None Pretest Chest Pain Characteristics: No chest pain Exercise History: Physically active Physical Disabilities: None Lung Sounds: Clear to auscultation Heart Sounds: Regular Stress Test Details Test: Pharmacologic stress testing performed using 0.4 mg of regadenoson per 5 mL given IV over 10 s econds. Nuclear Acquisition: Rest Tc-99m/Stress Tc-99m 1 day Rest Isotope: Tc-99m Sestamibi. Dose: 10.0 Date: 01/31/2022 Injection Time: 1230 Stress Isotope: Tc-99m Sestamibi. Dose: 32.0 Date: 01/31/2022 Injection Time: 1400 HR Resting HR Supine: 74 bpm Max Heart Rate (APMHR): 152.109989 bpm Target HR (85% APMHR): 129.752784 bpm Max HR Achieved: 102 bpm % of APMHR: 67.11 Recovery HR: 94 bpm BP Resting BP Supine: 124/82 mmHg Max BP: 144/68 mmHg Recovery BP: 134/74 mmHg ECG Resting ECG: Sinus Rhythm Ectopy: None Stress ECG: Sinus Tachycardia ST Change: No significant ST segment changes noted Arrhythmia: None Recovery ECG: Sinus Rhythm Recovery ST Change: No significant ST segment changes noted Recovery Arrhythmia: None Clinical Stress Symptoms: Headache, Nausea Rate Pressure Product: [id number] Stress ECG Conclusion 1. Resting electrocardiogram was within normal limits 2. Patient underwent testing using pharmacologic stress with regadenoson 3. Peak heart rate achieved was 67% of maximal predicted for age 4. Electrocardiographic portion of the test was nondiagnostic due to inadequate heart rate 5. There were no dysrhythmias 6. See MPI report Stress Test Summary STAGE HR BP SpO2 Symptoms NOTES Supine 74 124/82 1 min post Lexiscan injection 79 142/72 3 min post Lexiscan injection 97 144/68 6 min post Lexiscan injection 94 134/74 MPI Conclusion Myocardial perfusion is normal. There is no ischemia or evidence of prior infarction EF 58% Unable to assess regional wall motion Radiologist Interpretation Radiologist agrees with Economics Consultant's Interpretation. Radiologist Interpretation by: Robin Carvajal MD Interpretation Date/Time: 01/31/2022 17:26:12
[2022-01-31] MEDS: Regadenoson 0.4 MG/5 ML SYR IVP (13:54)
[2022-01-31] MEDS: Gabapentin 300 MG CAP PO (15:22)
[2022-01-31] MEDS: oxyCODONE 10 MG TAB PO (15:22)
[2022-01-31 15:54] VITALS: BP 136/82; PULSE 95; RESP 16; TEMP 37.4; O2SAT 94
--- NOTE | 2022-01-31 15:56 | W.PM.DS.N ---
Date of service: 01/31/22 Time of Service: 15:56 DS: Diagnosis Discharge Diagnosis (1) Chest pain: Status: Acute (2) Diabetes mellitus: Status: Chronic (3) Essential hypertension: Status: Chronic (4) Depression: Status: Chronic (5) Chronic obstructive lung disease: Status: Chronic (6) DVT prophylaxis: Status: Acute (7) Discharge planning issues: Status: Acute Discharge Plan Disposition Patient Disposition: HOME Condition: Good Discharge Details Reason For Visit: Chest Pain Admit Date/Time: 01/30/22 16:25 Admit Provider: Ender Lott Attending Provider: Ender Lott Primary Care Provider: Allie Blackmon [facility] Course Hospital Course: This is a 66-year-old woman with a history of [id number] diabetes, hypertension, COPD, GERD, hyperlipidemia, obstructive sleep apnea, pericarditis in the distant past who presented to the [facility] emergency department with chest pain.? The patient reported at approximately 12:30 this afternoon she was sitting at the table talking with her when she developed sudden onset right-sided chest pain that radiated into her right neck and jaw. The patient reported she also felt somewhat nauseous, and her told her that she was pale.? Patient reports that after about 5 minutes of the pain, her gave her one of his nitroglycerin.? Patient reported that she took that in addition to 2 baby aspirin, and approximately 4 to 5 minutes later her chest pain seemed to resolve.? Patient reported that she developed a headache after taking the nitro which quickly resolved.? She denied any current chest pain and stated that she felt essentially back to baseline.? She denied any recent illness.? Patient reports that she has had left-sided sciatica with ongoing pain for the past 6 weeks, denies any other pain.? Denies fever, cough, shortness of breath, vomiting, diarrhea, numbness, weakness, rash.? Patient reported that she recently drove to [employer] but has had no travel otherwise.? She denied recent surgeries or procedures.? Patient reported that she has had a stress test but believes it was significantly prior to 5 years ago.? Patient reported that she did have a similar episode of pain that occurred about 2 years ago.? Patient reported that she was by herself at the time and did not seek medical care. She had no shortness of breath, she did endorse brief diaphoresis.? She did not feel dizzy or lightheaded.? She is placed on observation status on the medical floor on telemetry. She had no chest pain overnight. She did have about 2 minutes of mid- sub sternal pain that went away on it's own. She had no associated symptoms. She underwent a myocardial perfusion scan [facility] that was normal. She ate lunch and was taking in adequate oral fluids. She was started on Protonix 40 mg daily and will follow up with her PCP. Discussed with Dr Gray Home Meds and New Rx's Prescriptions: New pantoprazole 40 mg Tablet,Delayed Release (Dr/Ec) 40 mg PO DAILY@0730 Qty: 30 0RF Continued Adult Probiotic 3 billion cell capsule 3,000 mmu cells PO HS lorazepam 0.5 mg tablet 0.5 mg PO BID PRN (Reason: anxiety) Qty: 10 1RF potassium chloride 20 mEq tablet extended release 20 meq PO DAILY Qty: 90 5RF chlorthalidone 25 mg tablet 25 mg PO DAILY Qty: 90 12RF Trelegy Ellipta 100-62.5-25 mcg blister with device 1 inh IH Q24H Qty: 60 5RF bupropion HCl 150 mg tablet extended release 24 hr 150 mg PO QAM Qty: 90 4RF metoprolol succinate 25 mg tablet extended release 24 hr 25 mg PO DAILY Qty: 90 5RF gabapentin 300 mg capsule 300 mg PO TID Qty: 90 3RF oxycodone 10 mg tablet 10 mg PO TID MDD 30 PRN (Reason: pain) Qty: 20 0RF polyethylene glycol 3350 [Miralax] 17 GM powder in packet 17 g PO DAILY PRNQty: 255 escitalopram oxalate 20 mg tablet 20 mg PO DAILY Qty: 90 4RF ergocalciferol (vitamin D2) 1,250 mcg (50,000 unit) capsule 50,000 unit PO QWEEK Qty: 13 0RF glyburide 5 mg tablet 5 mg PO DAILY Qty: 90 5RF dexamethasone [Decadron] 4 mg tablet 4 mg PO DAILY Qty: 13 0RF Rx Instructions: take 4 mg x7 days, 2 mg x7 days, 1 mg x4 days and discontinue No Action ibuprofen 600 mg tablet 600 mg PO TID PRN Shingrix Adjuvant Component-PF Suspension 1 ml IM ONCE Qty: 0.5 1RF Rx Instructions: Do today, repeat in 2 month lidocaine 5 % adhesive patch,medicated 1 patch topical DAILY Qty: 30 0RF Rx Instructions: leave on most painful area for up to 12 hrs cyclobenzaprine 10 mg tablet 10 mg PO TID PRN (Reason: muscle spasm) Qty: 90 0RF acetaminophen [Acetaminophen Extra Strength] 500 MG tablet 1,000 mg PO Q8H PRN PRNQty: 60 3RF Discharge Instructions Instructions: Pantoprazole (By mouth), Chest Pain (DC), GERD (Gastroesophageal Reflux Disease) (DC) Additional Instructions: Start Protonix 40 mg daily until you follow up with your PCP. Referrals: Allie Blackmon MD, [place] [Primary Care Provider] - (Follow up in one to two weeks) Activity:: Activity as Tolerated Equipment/Supplies:: No Equipment Needed Diet:: Low Sodium Discharge Orders Discharge Orders: Discharge Order (Routine); Ordered 01/31/22 Ordered By: Cathy Perdomo DS: Summary Time Spent with Patient providing and/or coordinating discharge services: Less than 30 minutes Status at Discharge Functional status at discharge: independent ambulation Overall status at discharge: patient is back to baseline Mental Status: mental status grossly normal Speech and Movement: speech and movement normal Mood: congruent mood and irritable mood Affect: normal affect Exam Psych Mental Status: mental status grossly normal Speech and Movement: speech and movement normal Mood: congruent mood and irritable mood Affect: normal affect DS: Data Vitals/I&O Vitals and I&O: Vital Signs Temperature 37.4 C 01/31/22 15:54 Temperature Source Tympanic 01/31/22 15:54 Pulse 95 H 01/31/22 15:54 Pulse Rhythm Regular 01/31/22 13:52 Pulse 56 L 01/30/22 17:50 Respiratory Rate 16 01/31/22 15:54 Respiratory Effort Non-Labored 01/31/22 13:52 Respiratory Depth Normal 01/31/22 13:52 Respiratory Pattern Normal 01/31/22 13:52 Blood Pressure 136/82 01/31/22 15:54 Blood Pressure Mean 71 01/30/22 14:28 Blood Pressure Position Sitting 01/30/22 13:26 Pulse Oximetry 94 01/31/22 15:54 Oxygen Delivery Method Room Air 01/31/22 15:54 Oxygen Flow Rate 0 01/31/22 15:54 Pain Level 0 01/31/22 15:54 Comment 01/30/22 13:26 Intake & Output 01/30/22 01/31/22 01/31/22 23:59 11:59 23:59 Output Total 300 / 300 Balance -300 / -300 Weight 79 kg 77.7 kg Output: Urine 300 / 300 Other: Urine Color Yellow Urine Appearance Clear Clear Clear Urine Odor None Comment patient reports voiding at time of admission, no void at this time. Voiding Methods Toilet Data Completed and Pending Labs on day of discharge: Labs from last 24 hours 01/31/22 01/31/22 01/30/22 05:55 05:55 17:02 WBC 9.60 RBC 4.56 Hgb 13.6 Hct 42.8 MCV 94 MCH 29.8 MCHC 31.8 L RDW 13.4 Plt Count 268 MPV 10.1 Immature Gran % 0.3 Neutrophils % 58.6 Lymphocytes % 32.0 Monocytes % 6.9 Eosinophils % 1.8 Basophils % 0.4 Nucleated RBC % 0.0 Absolute Neutrophils 5.63 Absolute Lymphocytes 3.07 Absolute Monocytes 0.66 Absolute Eosinophils 0.17 Absolute Basophils 0.04 Sodium 142 Potassium 3.5 Chloride 104 Carbon Dioxide 31.4 Anion Gap 6.6 BUN 24 H Creatinine 0.7 Est GFR (CKD-EPI 2020) 94.15 Glucose 124 H Calcium 8.8 Magnesium 2.2 Total Bilirubin 0.2 AST 19 ALT 43 Alkaline Phosphatase 64 Troponin I < 50 Total Protein 6.7 Albumin 2.9 L COVID-19 Source SARS-CoV-2 (PCR) 01/30/22 16:01 WBC RBC Hgb Hct MCV MCH MCHC RDW Plt Count MPV Immature Gran % Neutrophils % Lymphocytes % Monocytes % Eosinophils % Basophils % Nucleated RBC % Absolute Neutrophils Absolute Lymphocytes Absolute Monocytes Absolute Eosinophils Absolute Basophils Sodium Potassium Chloride Carbon Dioxide Anion Gap BUN Creatinine Est GFR (CKD-EPI 2020) Glucose Calcium Magnesium Total Bilirubin AST ALT Alkaline Phosphatase Troponin I Total Protein Albumin COVID-19 Source Nasal/Nares SARS-CoV-2 (PCR) Negative PFSH All Active Problems (Updated 01/30/22 @ 20:35 by Cathy Perdomo NP) Discharge planning issues (Acute) DVT prophylaxis (Acute) Chest pain (Acute) Acute left lumbar radiculopathy (Acute) COVID-19 (Acute) 12/12/21 Vaccinated, booster Moderna/pps Skin abnormalities (Acute) Muscle spasm (Acute) Weakness (Acute) Abdominal pain (Acute) Vitamin D deficiency disease (Acute) Thoracic back pain (Acute) Arm pain (Acute) Kyphosis (Acute) Cervical radiculitis (Acute) MRI C6-7 nerve root impingement Shingles (Acute) Restless (Acute) Sleep apnea (Acute) Pulmonary nodule less than 6 mm in diameter with low risk for malignant neoplasm (Acute) Pulmonary nodule (Acute) Shortness of breath (Acute) Diabetes mellitus (Chronic 12/31/17) a1c 5.1 Essential hypertension (Chronic 03/11/13) Elevated blood sugar (Acute) Chronic rectal pain (Acute) Fissure in ano (Acute) Depression (Chronic) Atrophy of vagina (Acute 10/16/16) Chronic obstructive lung disease (Chronic) Medical History (Updated 01/30/22 @ 20:35 by Cathy Perdomo NP) Abdominal mass 09/11/05 Anxiety Arthritis of right acromioclavicular joint (05/30/17) C. difficile colitis Cardiac murmur Pt. 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 Herpes zoster complicated 08/11/13 Herpes zoster with complication (08/11/13) History of depression HTN (hypertension) Hx of Clostridium difficile infection Hyperlipidemia Incomplete tear of right rotator cuff (09/07/17) Joint pain of leg 07/15/12 Knee pain Knee pain Lumbar back pain with radiculopathy affecting left lower extremity (12/31/17) Migraine Obstructive sleep apnea syndrome (10/27/11) excessive daytime sleepiness cannot tolerate CPAP machine JESSICA (obstructive sleep apnea) Other fatigue Other specified visual disturbances (07/15/12) Other visual disturbances 07/15/12 Ovarian cyst, complex Pain of joint of lower extremity (07/15/12) Pelvic floor dysfunction (10/16/16) Pericarditis acute Pericarditis (~1977) Restless legs syndrome (10/27/11) Shoulder joint pain 07/15/12 Shoulder joint pain (07/15/12) Smoker quit 05/14/2009 Smoker Superior glenoid labrum lesion of shoulder (10/30/17) Syncope normal echo w/ EF 70%; Holter-neg.; MRI shows a meningioma which has been stable now x 4 mos. Urinary frequency (08/18/14) Ventral hernia with obstruction but no gangrene QUESTION OF RIGHT Vertigo (03/02/15) Surgical History Arthroscopy, Shoulder 08/28/17 (R) Biopsy of breast X 2 Colonoscopy - MAC (01/28/16) H/O lumpectomy History of oophorectomy, unilateral History of tonsillectomy Hx of discectomy Hysterectomy, Laproscopic (~1980) Oophrectomy, Left S/P breast biopsy S/P laparoscopic hysterectomy 05/14/80 Family History Mother Diabetes Essential hypertension Dementia Depression Heart disease Father Diabetes Essential hypertension Heart disease Brother No problems noted. Brother Essential hypertension Depression Hyperlipidemia Maternal Grandmother Diabetes Essential hypertension Heart disease Brother Essential hypertension Heart disease Maternal Grandfather No problems noted. Paternal Grandfather Heart disease Paternal Grandmother Stroke Son No problems noted. Son Heart disease Mental disorder Depression Brother Heart disease Brother No problems noted. 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 Pets and animals: Yes Pets and animals: dog(s) Sexually active: No Do you think of yourself as: straight/heterosexual Current gender identity: female What is your relationship status?: How often do you talk on the phone with friends or family?: three or more times per week How often do you get together with friends or relatives?: twice per week How often do you attend druze or spiritism services?: 1-3 times per year Do you belong to any clubs or organized social groups?: no Panel score (0-1 are the most socially isolated patients): 2 Hien/Jainism: Religion Special hien needs: No Seatbelt use: always Drive intox or ride w/intox 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
--- NOTE | 2022-01-31 17:01 | CMDISCH_ITS ---
- If Service Date Differs Date of service: 01/31/22 Time of Service: 17:01 LACE Index Scoring Tool - Questions: Length of Stay (in days): 1 Acuity (Admit via E.D.?): Yes Comorbidities: Diabetes w/o Complication, Chronic Pulmonary Disease E.D. Visits: 2 - Answers: Total Score: 9 Risk of Readmission: Low Risk Care Management Discharge Reason for Hospitalization: Chest Pain Discharge Plan: Cathy is discharged home via private vehicle with family. Cathy will follow up with community providers and discharge plan of care as prescribed. New RX for Pantoprazole is transmitted to [facility]. Cathy will call [facility] in the morning to schedule a Hosp F/U appointment in 1-2 weeks. There is no anticipated need for home health services following discharge. Patient/Family Education Needs: Review discharge instructions, limitations, medications and plan to follow up with community providers. Discuss ask me three.
== END 2022-01-31 17:16 | disposition home or self-care (01) ==
LOC: ER 17:11 → MS 17:57
PROVIDERS: Nurse Practitioner Family; Admitting Provider Internal Medicine; Emergency Provider Student in an Organized Health Care Education/Training Program; PCP Family Medicine; Visit Provider Internal Medicine
DX: R07.89 Other chest pain (principal); E11.9 Type 2 diabetes mellitus without complications; I10 Essential (primary) hypertension; J44.9 Chronic obstructive pulmonary disease, unspecified; K21.9 Gastro-esophageal reflux disease without esophagitis; E78.5 Hyperlipidemia, unspecified; G47.33 Obstructive sleep apnea (adult) (pediatric); M54.32 Sciatica, left side; Z79.899 Other long term (current) drug therapy; Z86.16 Personal history of COVID-19; E55.9 Vitamin D deficiency, unspecified; R91.1 Solitary pulmonary nodule; F32.A Depression, unspecified; Z20.822 Contact with and (suspected) exposure to COVID-19; Z87.891 Personal history of nicotine dependence
CPT/HCPCS: 36415; 78452; 80053; 87635; 93005; 94640; 96372; 99285; J1650; 71045; 83735; 84484; 85025; 85379; 93010; 93017; 99217; 99219; G0378; J2785

== ENCOUNTER → 2022-02-10 09:18 | Outpatient (CLI) | payer MEDICARE, SELFPAY ==
--- NOTE | 2022-02-10 08:00 | DI.MAMMO_ITS ---
Exam(s) MAMMO SCREENING EXAM: MAMMO SCREENING CLINICAL HISTORY: screening,z12.39 TECHNIQUE: Mammograms were interpreted according to the usual protocol including computer analysis w [employer] CAD system, tomosynthesis and C-view imaging. COMPARISON: FINDINGS: The breasts are heterogeneously dense. No dominant mass or clumped microcalcification is identified in either breast. The current examination is compared with previous examinations including November 2020 and there is a question of increased prominence of nodularity associated with retroareolar radiodens ities of the left breast in comparison with the prior study. Possibility of a new area of nodularity is raised. Additional mammographic views of the left breast are requested to include CC and MLO spo t compression views of the left breast. No other significant change seen. IMPRESSION: Additional mammographic views left breast requested as described above. Breast ultrasound may be ind icated as well depending on the results of the additional mammographic views. BI-RADS Category 0 - Assessment Incomplete: Need additional imaging evaluation Breast Density - Category B - Scattered areas of fibroglandular density
--- NOTE | 2022-02-10 14:07 | DI.DEXA_ITS ---
Exam(s) XR DEXA BONE DENSITY W/WO RICHELLE EXAM: XR DEXA BONE DENSITY W/WO RICHELLE CLINICAL HISTORY: osteoporosis,m81.0 TECHNIQUE: COMPARISON: CR XR LUMBAR SPINE COMPLETE from 12/27/2021 FINDINGS: DEXA scan was performed according to the usual protocol. Please see the accompanying data sheets. Findings for left hip scanning are T-score 0.7 with left femoral neck T-score -0.9. Prior examinatio n of April 02 0 8 showed left hip T-score 0.1. Lumbar spine scanning shows T-score 0.2. Prior examination of April 02 0 8 showed lumbar T-score 0.5. Left forearm scanning shows T-score -0.4. IMPRESSION: Measurements are consistent with normal bone density according to the WHO criteria. The lateral vertebral scanogram shows no evidence of a vertebral compression fracture. RADIATION DOSE DELIVERED: Total DLP
== END ==
PROVIDERS: PCP Family Medicine; Visit Provider Family Medicine
DX: Z12.31 Encounter for screening mammogram for malignant neoplasm of breast (principal); Z13.820 Encounter for screening for osteoporosis; R92.8 Other abnormal and inconclusive findings on diagnostic imaging of breast
CPT/HCPCS: 77063; 77067; 77080

== ENCOUNTER → 2022-02-14 01:23 | Outpatient (CLI) | payer MEDICARE, SELFPAY ==
--- NOTE | 2022-02-14 | DI.US_ITS ---
Exam(s) MAMMO SCREEN CALL BACK UNI US BREAST LT COMPLETE EXAM: MAMMO SCREEN CALL BACK UNI-LEFT AND COMPLETE LEFT BREAST ULTRASOUND CLINICAL HISTORY: F/U ABNL MAMMO, RETROAREOLAR RADIODENSITIES, ? NODULARITIES IN LT BREAST. TECHNIQUE: Unilateral spot mammographic images obtained with 3D tomosynthesisand utilizing computer aided detection (CAD). . Complete LEFT breast Ultrasound was also performed, including all 4 quadrants, the retroareolar regio n, and the ipsilateral axilla. COMPARISON: Prior mammograms were reviewed. This additional imaging was performed due to findings described on the recent screening mammogram of 02/10/2022. FINDINGS: DIAGNOSTIC LEFT BREAST MAMMOGRAM: Additional mammographic views performed todayrender this area more similar in appearance to prior neena mograms. Proceeded with ultrasound. COMPLETE LEFT BREAST ULTRASOUND: Ultrasound performed today reveals no evidence of solid or significant cystic in all 4 quadrants nor in the retroareolar region. There are no findings correspond to the finding described on the mammogr am. Scanning of the ipsilateral left axilla reveals no significant pathologic appearing adenopathy. IMPRESSION: No radiographic evidence of malignancy in the left breast.. Negative complete left breast ultrasound. Appropriate follow-up is repeat left breast mammogram in 6 months.. The patient was informed of these findings and recommendations prior to leaving the department today. BI-RADS Category 3 - 6 month - Probably Benign Finding: Recommend follow-up mammography in 6 months Breast Density - Category B - Scattered areas of fibroglandular density Breast density Category C or D implies that the patient has dense breast tissue. Dense breast tissue can make it harder to find cancer on a mammogram. Dense breast tissue is also associated with an incr eased risk of breast cancer. This information about the result of the mammogram report was provided to the patient to raise their awareness. Use this report when you speak with the patient about their risks for breast cancer, which includes their family history. At that time, you may recommend additional screening tests (Ultrasoun d or MRI) as these tests may add significant information. A negative radiographic report should not delay biopsy if a dominant or clinically suspicious mass is present. Up to ten percent of cancers are not identified on mammography. A negative report may reinforce clinical impression. Adenosis and dense breasts may obscure an underlying neoplasm. False positive reports average 6 to 10%. Patient will receive a letter notifying them of these results.
== END ==
PROVIDERS: PCP Family Medicine; Visit Provider Family Medicine
DX: R92.8 Other abnormal and inconclusive findings on diagnostic imaging of breast (principal); Z12.31 Encounter for screening mammogram for malignant neoplasm of breast
CPT/HCPCS: 76642; 77063; 77067

== ENCOUNTER 2022-05-16 13:01 | Outpatient (REF) | payer OTHER, SELFPAY ==
[2022-05-16 14:00] LABS: Bilirubin Negative (Negative); Blood Negative (Negative); Clarity Sl Cloudy (Clear); Glucose Negative (Negative); Ketones Negative (Negative); Leukocyte Esterase Negative (Negative); Nitrite Negative (Negative); Specific Gravity >= 1.030 (1.005-1.025)
[2022-05-16 14:10] LABS: COMMENT (LAB VIEW ONLY) 196.43 mg/dL; Microalb ug/mg Crea 10.8 ug/mg Cr
== END 2022-05-16 13:02 | disposition home or self-care (01) ==
LOC: LBN 13:01
PROVIDERS: PCP Family Medicine; Visit Provider Family Medicine
DX: E11.9 Type 2 diabetes mellitus without complications (principal); I10 Essential (primary) hypertension; R10.2 Pelvic and perineal pain
CPT/HCPCS: 81003; 82043; 82570

== ENCOUNTER 2022-07-07 01:46 | Outpatient (CLI) | payer OTHER, SELFPAY ==
[2022-07-07 13:05] LABS: Hemoglobin A1C 7.8 % (<5.7)
[2022-07-07 13:25] LABS: Albumin 3.7 g/dL (3.4-5.0); Alkaline Phosphatase 86 U/L (46-116); Anion Gap 11.6 mmol/L (3-11); BUN 17 mg/dL (7-18); Bilirubin, Total 0.4 mg/dL (0.2-1.0); CO2 29.4 mmol/L (21.0-32.0); CREATININE 0.9 mg/dL (0.55-1.02); Calcium 9.6 mg/dL (8.5-10.1); Chloride 102 mmol/L (98-107); Estimated GFR 69.64 (mL/min/1.73m2); Glucose 227 mg/dL (74-106); Sodium 143 mmol/L (136-145); Total Protein 7.8 g/dL (6.4-8.2)
[2022-07-07 13:26] LABS: ALT 37 U/L (14-59); AST 16 U/L (15-37)
== END 2022-07-07 01:47 | disposition home or self-care (01) ==
LOC: LOS 01:47
PROVIDERS: PCP Family Medicine; Visit Provider Family Medicine
DX: E11.9 Type 2 diabetes mellitus without complications (principal); I10 Essential (primary) hypertension
CPT/HCPCS: 36415; 80053; 83036

== ENCOUNTER 2022-08-15 02:08 | Outpatient (CLI) | payer OTHER, SELFPAY ==
--- NOTE | 2022-08-15 07:15 | DI.MAMMO_ITS ---
Exam(s) MG MAMMO DIAGNOSTIC UNI EXAM: MG MAMMO DIAGNOSTIC UNI CLINICAL HISTORY: 3-6 mo f/u,f/u abnl mammo, r92.8,z09. TECHNIQUE: Craniocaudal and mediolateral oblique Full Field Digital Mammography views of the left b reast with Computer Aided Diagnosis followed by Tomosynthesis. COMPARISON: MG Screening Bilat Mammo from 02/18/2014 MG Screening Bilat Mammo from 10/26/2015 MG Screening Bilat Mammo from 11/21/2016 MG MG mammo diagnostic BI from 12/06/2018 MG MG MAMMO SCREENING from 12/09/2020 MG MG MAMMO SCREENING from 02/10/2022 MG MG MAMMO SCREEN CALL BACK UNI from 02/14/2022 US US BREAST LT COMPLETE from 02/14/2022 FINDINGS: Mammography/Tomosynthesis: Masses/Architectural Distortion: Mild scarring related to previous biopsy. No masses seen. Previously questioned area of nodularity not visible on current exam. Microcalcifictions: No suspicious pleomorphic-type are seen. Skin Thickening/Nipple Retraction: None. IMPRESSION: 1. No evidence of malignancy is noted. 2. Unless there is more urgent need, follow-up screening mammography is recommended, as per [place] [employer] guidelines. BI-RADS Category 2 - Benign Findings Breast Density - Category B - Scattered areas of fibroglandular density A negative radiographic report should not delay biopsy if a dominant or clinically suspicious mass is present. Up to ten percent of cancers are not identified on mammography. A negative report may reinforce clinical impression. Adenosis and dense breasts may obscure an underlying neoplasm. False positive reports average 6 to 10%. Patient will receive a letter notifying them of these results.
== END 2022-08-15 02:28 ==
LOC: DI 02:08
PROVIDERS: PCP Family Medicine; Visit Provider Family Medicine
DX: R92.8 Other abnormal and inconclusive findings on diagnostic imaging of breast (principal); N64.59 Other signs and symptoms in breast; Z98.890 Other specified postprocedural states
CPT/HCPCS: 77061; 77065; G0279

== ENCOUNTER 2022-08-21 07:44 | Outpatient (CLI) | payer OTHER, SELFPAY ==
[2022-08-24 14:15] LABS: BUN 25 mg/dL (7-18); CREATININE 0.8 mg/dL (0.55-1.02); Calcium 9.8 mg/dL (8.5-10.1); Chloride 101 mmol/L (98-107); Estimated GFR 79.71 (mL/min/1.73m2); Glucose 100 mg/dL (74-106); Potassium 3.6 mmol/L (3.5-5.1); Sodium 141 mmol/L (136-145)
== END 2022-08-24 02:03 | disposition home or self-care (01) ==
LOC: LBO 08-25 07:44
PROVIDERS: PCP Family Medicine; Visit Provider Family Medicine
DX: E87.6 Hypokalemia (principal)
CPT/HCPCS: 36415; 80048

== ENCOUNTER 2022-09-19 01:46 | Outpatient (CLI) | payer OTHER, SELFPAY ==
--- NOTE | 2022-09-19 | DI.MRI_ITS ---
Exam(s) MR LUMBAR SPINE WO/W EXAM: MR LUMBAR SPINE WO/W CLINICAL HISTORY: new weakness,recurrent lt leg pain,6 mo s/p lt 5-1 msd,? reherniation. TECHNIQUE: Multiplanar multisequence MRI of the Lumbar spine was performed. Both pre and post contra st infused sequences were. Contrast infused was 15 mL Dotarem. COMPARISON: MR MR LUMBAR SPINE WO from 01/25/2022 FINDINGS: Conus medullaris is at normal level. There is no evidence of conus mass nor subjacent clumping of in trathecal nerve roots to suggest arachnoiditis. The distal thecal sac appears unremarkable.There is no evidence of Tarlov intrasacral cysts nor other significant findings within the sacral canal Bones:There are no fractures nor ominous osseous lesions in the lumbar vertebral bodies and visualize d sacrum. With respect to the individual levels... T12-L1: Unremarkable L1-2: Normal disc height and signal. No disc herniation nor central canal stenosis.No foraminal steno sis L2-3: Normal disc height. No disc herniation nor central canal stenosis.No foraminal stenosis.No face t arthropathy. L3-4: Normal disc height. No disc herniation or central canal stenosis.No foraminal stenosis.No face t arthropathy. L4-5: This level again exhibits normal disc height but mild degenerative anterolisthesis L4 upon L5 w ith unchanged mild-moderate central spinal canal. No prominent foraminal stenosis. No focal disc he rniation. Advanced facet arthropathy again noted. L5-S1: This level exhibits interval partial left laminectomy. There is enhancement along the left si ded surgical tract . on the sagittal images there is signal abnormality and enhancement in the national expansion recruiter ior left side of the disc space and with what appears to be a disc bulge on the sagittal images. Thi s, however, is less convincing for an actual disc herniation on the axial images and more consistent with scar tissue. No evidence of abnormal endplate and marrow findings in L5 and S1. No evidence of epidural abscess. No paraspinal abscess. IMPRESSION: 1. Compared to the prior study there has been interval surgery at L5-S1 level. There is an enhanceme nt along the left of center surgical tract. There appears to be a combination of posterolateral left annular bulging (best seen on the sagittal images) and enhancing granulation tissue left side of the epidural space. 2. Mild degenerative anterolisthesis of L4 upon L5 appears similar to the prior study and is related to facet arthropathy. There is no significant impingement upon the exiting nerve roots on either elizabeth e at this level with intact fat planes demonstrated around the exiting nerve roots bilaterally and no flattening of these exiting nerve roots. DATA REPOSITORY:
[2022-09-19] MEDS: Normal Saline Flush 10 ML SYR IVP (13:59)
[2022-09-19] MEDS: Gadoterate meglumine 20 ML VIAL 15 ML IVP (13:59)
== END 2022-09-19 02:06 ==
LOC: DI 01:46
PROVIDERS: PCP Family Medicine; Visit Provider Physician Assistant Medical
DX: M51.16 Intervertebral disc disorders with radiculopathy, lumbar region (principal)
CPT/HCPCS: 72158

== ENCOUNTER → 2023-04-11 17:07 | Outpatient (CLI) | payer OTHER, SELFPAY ==
--- NOTE | 2023-04-11 17:15 | DI.RAD_ITS ---
Exam(s) XR HAND RT COMPLETE EXAM: XR HAND RT COMPLETE CLINICAL HISTORY: evaluate pathology. TECHNIQUE: 2D digital imaging was performed. COMPARISON: CR XR HAND LT COMPLETE from 04/11/2023 FINDINGS: 3 views No evidence of fracture nor subluxations. No radiopaque foreign body. No osseous lesions. No erosi ons evident. No joint space narrowing. No osteophytes. First carpometacarpal joint appears unremar kable. IMPRESSION: No significant radiograph findings in the right hand. DATA REPOSITORY: RADIATION DOSE DELIVERED:
--- NOTE | 2023-04-11 17:15 | DI.RAD_ITS ---
Exam(s) XR HAND LT COMPLETE EXAM: XR HAND LT COMPLETE CLINICAL HISTORY: evalutate pathology. TECHNIQUE: 2D digital imaging was performed. COMPARISON: No exams were available for comparison FINDINGS: 3 views No evidence of fracture nor subluxations. No osseous lesions nor erosions. No joint space narrowing . Metacarpophalangeal joints appear unremarkable. Interphalangeal joints appear unremarkable. Firs t carpometacarpal joint appears unremarkable. No abnormal soft tissue calcifications. IMPRESSION: No significant radiographic findings in the left hand. DATA REPOSITORY: RADIATION DOSE DELIVERED:
== END ==
PROVIDERS: PCP Family Medicine; Visit Provider Nurse Practitioner Family
DX: M79.645 Pain in left finger(s) (principal); M79.644 Pain in right finger(s)
CPT/HCPCS: 73130

== ENCOUNTER 2023-06-28 13:02 | Outpatient (CLI) | payer OTHER, SELFPAY | END 2023-06-28 13:03 | disposition home or self-care (01) | LOC: DI.CM 13:02 | PROVIDERS: PCP Family Medicine; Visit Provider Family Medicine | CPT/HCPCS: 93010 ==

== ENCOUNTER 2023-10-01 10:34 | Outpatient (CLI) | payer OTHER, SELFPAY ==
[2023-10-01 12:29] LABS: HCT 45.1 % (36.0-46.0); HGB 14.6 g/dL (11.2-15.7); MCHC 32.4 % (32.0-36.0); MCV 93 fL (80-95); MPV 10.7 fL (8.0-11.0); Platelet Count 333 10^3/uL (130-400); RBC 4.87 10^6/uL (3.93-5.22); RDW 13.2 % (11.7-14.6); RDW-SD 44.9 fL; WBC 8.29 10^3/uL (4.4-10.8)
[2023-10-01 12:57] LABS: ESR 13 mm/hr (0-30)
[2023-10-01 13:10] LABS: Vitamin D 25 Total 39.1 ng/mL (30-100)
[2023-10-01 13:11] LABS: Hemoglobin A1C 5.2 % (<5.7)
[2023-10-01 13:30] LABS: ALT 26 U/L (14-59); AST 12 U/L (15-37); Albumin 3.7 g/dL (3.4-5.0); Alkaline Phosphatase 78 U/L (46-116); Anion Gap 9.1 mmol/L (3-11); BUN 25 mg/dL (7-18); Bilirubin, Total 0.4 mg/dL (0.2-1.0); CO2 25.9 mmol/L (21.0-32.0); CREATININE 0.6 mg/dL (0.55-1.02); Calcium 9.4 mg/dL (8.5-10.1); Calculated LDL 90 mg/dL (<100); Chloride 109 mmol/L (98-107); Cholesterol 173 mg/dL (<200); Folate 10.3 ng/mL (8.6-20.0); Glucose 94 mg/dL (74-106); HDL Cholesterol 54 mg/dL (40-60); Sodium 144 mmol/L (136-145); TSH (W/Ref FT4) 1.41 uIU/mL (0.36-3.74); Total Protein 7.5 g/dL (6.4-8.2); Triglyceride 147 mg/dL (<150); Vitamin B12 304 pg/mL (193-986)
[2023-10-01 13:31] LABS: COMMENT (LAB VIEW ONLY) 81.41 mg/dL; Microalb ug/mg Crea 9.7 ug/mg Cr
[2023-10-01 13:38] LABS: C-Reactive Protein 1.07 mg/dL (<or=0.5)
[2023-10-02 13:54] LABS: Albumin 57.6 % (55.8-66.1); Total Protein 6.9 g/dL (6.3-8.2)
== END 2023-10-01 10:35 | disposition home or self-care (01) ==
LOC: LOS 10:34
PROVIDERS: PCP Family Medicine; Referring Provider Family Medicine; Visit Provider Family Medicine
DX: I10 Essential (primary) hypertension; E11.9 Type 2 diabetes mellitus without complications; M81.0 Age-related osteoporosis without current pathological fracture; E03.9 Hypothyroidism, unspecified
CPT/HCPCS: 36415; 80053; 80061; 82306; 85027; 85652; 82043; 82570; 82607; 82746; 83036; 84165; 84443; 86140

== ENCOUNTER → 2023-10-02 11:08 | Outpatient (CLI) | payer OTHER, SELFPAY ==
--- NOTE | 2023-10-02 10:45 | DI.RAD_ITS ---
Exam(s) XR WRIST RT COMPLETE EXAM: XR WRIST RT COMPLETE CLINICAL HISTORY: wrist pain,RT M25.531. TECHNIQUE: 2D digital imaging was performed. Three views. COMPARISON: CR XR HAND RT COMPLETE from 04/11/2023 CR XR WRIST LT COMPLETE from 10/02/2023 FINDINGS: BONES: No acute fracture is present. There is a lucency in the ulnar styloid. There is a small erosi on at the base of the 5th metacarpal. A similar small erosion is seen at the base of the 4th metacar pal. There is a question of an erosion in the hamate. The bones appear osteopenic. JOINTS: The carpal bones are normally aligned. The joint spaces are maintained. SOFT TISSUE: A soft tissue swelling around the wrist. IMPRESSION: Soft tissue swelling. Mild periarticular erosions, greatest in the ulnar styloid. Findings were not evident previously. Findings may represent inflammatory arthritis. DATA REPOSITORY: RADIATION DOSE DELIVERED:
--- NOTE | 2023-10-02 10:45 | DI.RAD_ITS ---
Exam(s) XR WRIST LT COMPLETE EXAM: XR WRIST LT COMPLETE CLINICAL HISTORY: wrist pain,LT M25.532. TECHNIQUE: 2D digital imaging was performed. Three views. COMPARISON: No exams were available for comparison FINDINGS: BONES: No acute fracture is present. Small erosion at the base of the 5th metacarpal. Bones appear osteopenic. Lucencies in the distal radius likely degenerative subchondral cysts. JOINTS: The carpal bones are normally aligned. Mild narrowing of the radiocarpal joint. Mild spurr ing at the articular aspect of the distal radius. SOFT TISSUE: Diffuse swelling around the wrist. IMPRESSION: Unrem soft tissue swelling. Degenerative changes at the radial carpal joint. Erosion at the base of the 5th metacarpal. DATA REPOSITORY: RADIATION DOSE DELIVERED:
== END ==
PROVIDERS: PCP Family Medicine; Visit Provider Family Medicine
DX: M25.531 Pain in right wrist (principal); M25.532 Pain in left wrist
CPT/HCPCS: 73110

== ENCOUNTER 2023-10-18 16:34 | Outpatient (REF) | payer OTHER, SELFPAY ==
[2023-10-18 20:53] LABS: Bilirubin Negative (Negative); Blood Negative (Negative); Clarity Clear (Clear); Glucose 500 mg/dL (Negative); Ketones Negative (Negative); Leukocyte Esterase Negative (Negative); Nitrite Positive (Negative); Urobilinogen 0.2 mg/dL (Up to 0.2)
[2023-10-18 21:03] LABS: Bacteria Many HPF (Negative); C & S Indicated? Yes; Casts Negative LPF (Negative); Crystals Negative HPF (Negative); Epithelial Cells Rare HPF (Negative); Mucus Negative (Negative); RBC Negative HPF (0-2)
== END 2023-10-18 16:35 | disposition home or self-care (01) ==
LOC: LBN 16:34
PROVIDERS: PCP Family Medicine; Visit Provider Family Medicine
DX: R35.0 Frequency of micturition (principal); B96.29 Other Escherichia coli [E. coli] as the cause of diseases classified elsewhere
CPT/HCPCS: 87077; 81003; 81015; 87086; 87186

== ENCOUNTER 2024-02-20 00:54 | Outpatient (CLI) | payer OTHER, SELFPAY ==
--- NOTE | 2024-02-20 08:30 | DI.US_ITS ---
Exam(s) US CAROTID EXAM: US CAROTID CLINICAL HISTORY: dizziness,r42. TECHNIQUE: Ultrasound carotids performed using grayscale, color-flow, and spectral Doppler imaging. COMPARISON: US US BREAST LT COMPLETE from 02/14/2022 FINDINGS: CAROTID ARTERIES: There is some plaque noted at the carotid bulbs-proximal internal carotid arteries bilaterally but wi thout significantly elevated velocities, indicating stenosis less than 50 VERTEBRAL ARTERIES: Antegrade flow is demonstrated in both vertebral arteries. Measurements: R Bulb: 71.1cm/s PS / 20.6cm/s ED R CCA: 68.5cm/s PS / 19.3cm/s ED R ECA: 54.5cm/s PS / 9.7cm/s ED R ICA Prox: 56.7cm/s PS / 19.6cm/s ED R ICA Mid: 68.7cm/s PS / 26.1cm/s ED R ICA Distal: 83.9cm/s PS /31.5cm/s ED R Vert: 45.7cm/s PS / 13cm/s ED R SVR: 1.2 R DVR: 1.6 L Bulb: 67.4cm/s PS / 18.4cm/s ED L CCA: 75cm/s PS / 21.7cm/s ED L ECA: 72.9cm/s PS / 6.4cm/s ED L ICA Prox: 62cm/s PS / 19.5cm/s ED L ICA Mid: 79.4cm/s PS / 28.2cm/s ED L ICA Distal: 69.6cm/s PS / 21.7cm/s ED L Vert: 45.6cm/s PS / 14cm/s ED L SVR: 1.1 L DVR: 1.3 IMPRESSION: There is some mild plaque bilaterally at the carotid bifurcation-proximal internal carotid arteries. There are no associated elevated velocities. This implies that the amount of stenosis is less than 50 percent bilaterally. Antegrade flow was demonstrated within both vertebral arteries. Criteria for Carotid Stenosis: Normal: ICA PSV <125 cm/s no plaque or intimal thickening is visible. <50% stenosis: ICA PSV <125 cm/s and plaque or intimal thickening is visible. 50-69% stenosis: ICA PSV is 125-250 cm/s and plaque is visible. >70% stenosis to near occlusion: ICA PSV >250 cm/s with visible plaque and luminal narrowing. DATA REPOSITORY:
== END 2024-02-20 01:14 ==
LOC: DI 00:54
PROVIDERS: PCP Family Medicine; Visit Provider Family Medicine
DX: R42 Dizziness and giddiness (principal); Z12.31 Encounter for screening mammogram for malignant neoplasm of breast
CPT/HCPCS: 77063; 77067; 93880

== ENCOUNTER 2024-02-25 02:00 | Outpatient (CLI) | payer OTHER, SELFPAY ==
--- NOTE | 2024-02-25 07:00 | DI.MRI_ITS ---
Exam(s) MR BRAIN WO EXAM: MR BRAIN WO CLINICAL HISTORY: meningioma,dizziness,d32.9,r42 TECHNIQUE: Multiplanar multisequence MRI of the brain was performed. FINDINGS: VENTRICLES AND EXTRA AXIAL SPACES: Normal in size and morphology for the patient's age. There is agai n seen an extra-axial mass associated with the falx posteriorly on the left side measuring 1.2 AP by 1.0 transverse by 1.6 craniocaudad cm. This compares to 0.8 x 0.7 x 1.0 cm on the prior examination. The findings most consistent with a meningioma. MIDLINE SHIFT: None. CEREBRAL PARENCHYMA: No focus of restricted diffusion to suggest acute infarct. There are few scatter ed foci of hyperintense signal seen in the white matter on the FLAIR and T2 weighted images most cons istent with chronic microvascular ischemic disease. HEMORRHAGE: None. BRAINSTEM/CEREBELLUM: Normal. CALVARIUM: Normal. VISUALIZED PARANASAL SINUSES/MASTOIDS:Clear. [place]: Normal flow void. PITUITARY GLAND: Unremarkable. OTHER FINDINGS: None. IMPRESSION: 1. No acute intracranial process. No evidence of an acute infarct. 2. Age-related small vessel ischemic disease. 3. Slight interval increase in size of the falcine meningioma measuring 1.2 x 1.0 x 1.6 cm. This com pares to 0.8 x 0.7 x 1.0 cm on the prior examination. DATA REPOSITORY:
== END 2024-02-25 02:20 ==
LOC: DI 02:00
PROVIDERS: PCP Family Medicine; Visit Provider Family Medicine
DX: I67.82 Cerebral ischemia (principal)
CPT/HCPCS: 70551

== ENCOUNTER 2024-05-02 00:35 | Outpatient (CLI) | payer OTHER, SELFPAY ==
--- NOTE | 2024-05-02 11:12 | DI.RAD_ITS ---
Exam(s) XR CHEST 2V PA LATERAL EXAM: XR CHEST 2V PA LATERAL CLINICAL HISTORY: ILD,? HILAR ADENOPATHY,INFLAMMATORY POLYARTHRITIS,m06.4 TECHNIQUE: 2D digital imaging was performed of the chest. Two images were obtained. PA and lateral views were obtained. COMPARISON: No exams were available for comparison FINDINGS: MEDIASTINUM: Normal. HEART: Normal. PULMONARY VASCULATURE: Normal. LUNGS: Clear. PLEURAL SPACE: No pleural effusion or pneumothorax. BONE:Within normal limits for the patient's age. OTHER FINDINGS:Normal. IMPRESSION: No acute pulmonary findings. DATA REPOSITORY: RADIATION DOSE DELIVERED:
== END 2024-05-02 00:55 ==
LOC: DI 00:36
PROVIDERS: PCP Family Medicine; Visit Provider Student in an Organized Health Care Education/Training Program
DX: M06.4 Inflammatory polyarthropathy (principal)
CPT/HCPCS: 71046

== ENCOUNTER 2024-05-02 12:32 | Outpatient (CLI) | payer OTHER, SELFPAY ==
[2024-05-02 11:35] LABS: Abs Immature Grans 0.01 10^3/uL (0.0-0.06); Absolute Basophil Count 0.06 10^3/uL (0.0-0.2); Absolute Eosinophil Count 0.19 10^3/uL (0.0-0.7); Absolute Lymphocyte Count 2.16 10^3/uL (1.2-3.4); Absolute Monocyte Count 0.48 10^3/uL (0.1-0.8); Absolute Neutrophil Count 5.86 10^3/uL (1.2-6.7); Basophils % 0.7 %; Eosinophils % 2.2 %; HCT 48.2 % (36.0-46.0); HGB 15.7 g/dL (11.2-15.7); Immature Grans % 0.1 %; Lymphocytes % 24.7 %; MCH 29.6 pg (27.0-33.0); MCHC 32.6 % (32.0-36.0); MCV 91 fL (80-95); MPV 10.1 fL (8.0-11.0); Monocytes % 5.5 %; Neutrophils % 66.8 %; Platelet Count 307 10^3/uL (130-400); RBC 5.31 10^6/uL (3.93-5.22); RDW 12.5 % (11.7-14.6); RDW-SD 41.4 fL; WBC 8.76 10^3/uL (4.4-10.8)
[2024-05-02 12:01] LABS: ALT 20 U/L (14-59); AST 15 U/L (15-37); Albumin 3.7 g/dL (3.4-5.0); Alkaline Phosphatase 110 U/L (46-116); BUN 22 mg/dL (7-18); Bilirubin, Total 0.47 mg/dL (0.2-1.0); CREATININE 0.8 mg/dL (0.55-1.02); Calcium 9.4 mg/dL (8.5-10.1); Chloride 107 mmol/L (98-107); Estimated GFR 79.22 (mL/min/1.73m2); Glucose 122 mg/dL (74-106); Potassium 3.8 mmol/L (3.5-5.1); Sodium 145 mmol/L (136-145); Total Protein 7.5 g/dL (6.4-8.2)
[2024-05-05 22:36] LABS: Hepatitis C Ab w Rflx HCV PCR Negative (Negative)
== END 2024-05-02 12:33 | disposition home or self-care (01) ==
LOC: LBO 12:36
PROVIDERS: PCP Family Medicine; Visit Provider Student in an Organized Health Care Education/Training Program
DX: Z11.59 Encounter for screening for other viral diseases (principal); M06.4 Inflammatory polyarthropathy
CPT/HCPCS: 36415; 80053; 86803; 85025

== ENCOUNTER 2024-07-10 02:03 | Outpatient (CLI) | payer MEDICARE, SELFPAY ==
--- NOTE | 2024-07-10 10:58 | DI.RAD_ITS ---
Exam(s) XR CHEST 2V PA LATERAL EXAM: XR CHEST 2V PA LATERAL CLINICAL HISTORY: chest congestion,j98.8 TECHNIQUE: 2D digital imaging was performed. Two views. COMPARISON: CR XR CHEST 2V PA LATERAL from 05/02/2024 FINDINGS: HEART: Normal size. Aorta: Not dilated. PULMONARY VASCULATURE: Normal. MEDIASTINUM: Unremarkable. LUNGS: Clear. PLEURAL SPACE: No pleural effusion or pneumothorax. BONE:Unremarkable for age. SOFT TISSUES: Unremarkable. IMPRESSION: No acute abnormality. DATA REPOSITORY: RADIATION DOSE DELIVERED:
== END 2024-07-10 02:23 ==
PROVIDERS: PCP Family Medicine; Visit Provider Family Medicine
DX: J98.8 Other specified respiratory disorders (principal)
CPT/HCPCS: 71046

== ENCOUNTER → 2025-04-23 00:58 | Outpatient (CLI) | payer MEDICARE, SELFPAY ==
--- NOTE | 2025-04-23 07:15 | DI.CTLCSR_ITS ---
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 Low dose screening protocol. COMPARISON: CT CT CHEST LUNG CANCER SCREEN from 01/25/2022 CR XR CHEST 2V PA LATERAL from 07/10/2024 FINDINGS: Tracheobronchial tree: No bronchiectasis or mucus plugging. Mediastinum and Wendy: No dominant adenopathy or fluid collection. Pulmonary parenchyma: No consolidation or dominant measurable mass. No visible emphysematous changes. No significant interstitial changes. Lung Nodules: Stable bilateral micro nodules. No new nodules. Mild mild lingular scarring. Pleura: No effusion. No pneumothorax. Heart: The heart is not dilated. Mild coronary artery calcifications are seen. No pericardial effusion. Aorta: Thoracic aorta non-dilated. Upper abdomen: Unremarkable. Bones: Unremarkable for age. Soft Tissues: Unremarkable. IMPRESSION: No suspicious pulmonary nodules. Lung RADS Cat 2 - Benign Appearance / Behavior: Nodules with a very low likelihood of becoming a clinically active cancer due to size or lack of growth Lung-RADS 1.0 CATEGORIES: Category 0 - Prior chest CT exam(s) being located for comparison. Category 1 - Annual screening in 12 months. No nodules or definitely benign nodules. Category 2 - Annual screening in 12 months. Benign appearance. Nodules with low likelihood of becoming active cancer. Category 3 - 6-month follow-up. Probably benign. Short-term follow-up suggested. Nodules with low likelihood of becoming active cancer. Category 4A - 3-month follow-up and CT/PET if >8 mm in size. Suspicious finding. Findings which require additional testing. Category 4B - Findings which require additional testing and tissue sampling. Category 4X - Category 3 or 4 nodules with additional features or imaging findings that increases the suspicion of malignancy. Modifier S- Potentially clinically significant findings (non lung cancer) RADIATION DOSE DELIVERED: 23.93mGy.cm Total DLP DATA REPOSITORY: All CT scans at this facility are submitted to the National Radiology Data Registry (NRDR) Dose Index Registry (DIR) with the [employer] (A[employer]). RADIATION OPTIMIZATION: All CT scans at this facility use at least one of these dose optimization techniques: automated exposure control; mA and/or kV adjustment per patient size (includes targeted exams where dose is matched to clinical indication); or iterative reconstruction.
--- NOTE | 2025-04-23 07:15 | DI.NM_ITS ---
APPROVED REPORT Exam: Pharmacologic Patient Location: Out-Patient Room/Bed: Stress Nurse: Colt Marti RN Ordering Provider:FADY MOORE, Contact Number: [phone] BMI: 24.14 Baseline Rhythm: Sinus Rhythm. Indications: Chest Pain due to CAD. Medical History Medical History: JESSICA; RLS; Reflux; Gastritis; COPD; Neuropathy; Depression; HLD; HTN; DM; Chronic Obstructive Lung Disease; Heart Murmur; Anxiety. Cardiac Medications: Trelegy Ellipta; Empagliflozin; Pantoprazole; Tirzepatide; Gabapentin; Lorazepam; Humira; Atorvastatin; Bupropion; Escitalopram; Losartan; Ropinirole; Sulfasalazine. Allergies: Methotrexate. Cardiac Risk Factors: Family Hx; HLD; HTN; DM; COPD; Former Smoker. Previous Cardiac Procedures: None. Pretest Chest Pain Characteristics: None. Exercise History: Indeterminate. Physical Disabilities: None. Lung Sounds: Clear bilaterally throughout, anterior and posterior. Heart Sounds: S1 and S2 auscultated. Stress Test Details Test: Pharmacologic stress was paired with low level exercise. Reason for pharmacologic stress test: changed from exercise stress test due to inability to reach target heart rate. Nuclear Acquisition: Rest Tc-99m/Stress Tc-99m 1 day Rest Isotope: Tc-99m Sestamibi. Dose: 10.0 Date: 04/23/2025 Injection Time: 1100 Stress Isotope: Tc-99m Sestamibi. Dose: 30.0 Date: 04/23/2025 Injection Time: 1326 HR Resting HR Supine: 73 bpm Max Heart Rate (APMHR): 149 bpm Resting HR Standin bpm Target HR (85% APMHR): 127 bpm Max HR Achieved: 121 bpm % of APMHR: 81 Recovery HR: 103 bpm HR response to stress: Normal HR response to stress. BP Resting BP Supine: 122/80 mmHg Resting BP Standin/78 mmHg Max BP: 142/80 mmHg Recovery BP: 100/78 mmHg BP response to stress: Normal blood pressure response to stress. ECG Resting ECG: Sinus Rhythm. Ectopy: None. Stress ECG: Sinus Tachycardia. ST Change: Nondiagnostic low heart rate. Arrhythmia: None. Recovery ECG: Sinus Tachycardia. Recovery ST Change: Nondiagnostic low heart rate; Upsloping ST depression. Lead(s): II, II, aVF. Recovery ST Deviation: 1-2 mm Recovery Arrhythmia: None. Clinical Stress Symptoms: Mild to moderate shortness of breath; Mild to moderate chest tightness. Exercise duration: 08 min00 sec Highest Stage Reached: Stage 3: 3.4 mph at 14% grade. Exercise capacity: 7.76 METs Angina Score: Non-Limiting Rate Pressure Product: 07230 Stress ECG Conclusion 1. Resting electrocardiogram is normal 2. Patient underwent testing using a combination of low-level exercise and pharmacologic stress with regadenoson. Patient was able to complete a workload of 7 METS 3. Maximum heart rate achieved was 81% of maximal predicted for age 4. The electrocardiographic portion of the test was nondiagnostic 5. There were no significant dysrhythmias 6. See MPI report Stress Test Summary STAGE Time (mins) Speed (mph) Grade (%) HR BP SpO2 SYMPTOMS METS Supine 73 122/80 98 Standing 81 110/78 98 1 3 1.7 10 100 124/70 93 4.5 2 6 2.5 12 110 142/70 93 Pt. c/o mild shortness of breath. 7 3 9 3.4 14 114 93 Pt. c/o mild shortness of breath. Pt. requested to stop the treadmill. Test was transitioned to a walking lexiscan. 10 1 min post Lexiscan injection 118 142/80 95 Pt. c/o moderate shortness of breath. Pt. also c/o feeling ...shaky. 3 min post Lexiscan injection 105 110/80 96 Pt. c/o mild to moderate shortness of breath and 5/10, mid sternal, chest tightness around two minutes post lexiscan injection. Pt. still c/o feeling ...slightly shaky. 6 min post Lexiscan injection 103 100/78 96 Pt. stated that all shortness of breath had resolved. Pt. stated that her chest pain was a 1-2/10, mid sternal, chest tightness that was rapidly resolving. Pt. still c/o feeling ...slightly shaky. Pt. was encouraged to go and get a coffee and a snack. Pt. performed a NM MPI stress test, starting with a Jaden protocol and then transitioning to a walking lexiscan protocol. Pt. denied any symptoms prior to starting the stress test. During Stage 2 of exercise, pt. c/o mild shortness of breath. During Stage 2 of exercise, pt. c/o mild shortness of breath. Pt. requested to stop the treadmill. Test was transitioned to a walking lexiscan. During Stage 1 of recovery, immediately post lexiscan injection, pt. c/o moderate shortness of breath. Pt. also c/o feeling ...shaky. During Stage 2 of recovery, pt. c/o mild to moderate shortness of breath and 5/10, mid sternal, chest tightness around two minutes post lexiscan injection. Pt. still c/o feeling ...slightly shaky. During Stage 3 of recovery, pt. stated that all shortness of breath had resolved. Pt. stated that her chest pain was a 1-2/10, mid sternal, chest tightness that was rapidly resolving. Pt. still c/o feeling ...slightly shaky. Pt. was encouraged to go and get a coffee and a snack. Upsloping ST depressions ranging from 1-2 mm noted in leads II, III, and aVF during Stage 1 of recovery, immediately post lexiscan injection. Upsloping ST depressions had recovered back to baseline by the end of the stress test. Pt. was conversing pleasantly with nursing staff upon leaving the Stress Lab. Pt. left ambulatory in no apparent distress. MPI Conclusion Myocardial perfusion is normal. There is no ischemia or evidence of prior infarction Ejection fraction is greater than 65% with hyperdynamic wall motion
[2025-04-23 11:09] LABS: HCT 43.0 % (36.0-46.0); HGB 14.8 g/dL (11.2-15.7); MCH 32.6 pg (27.0-33.0); MCHC 34.4 % (32.0-36.0); MCV 95 fL (80-95); MPV 9.7 fL (8.0-11.0); Platelet Count 258 10^3/uL (130-400); RBC 4.54 10^6/uL (3.93-5.22); RDW 12.4 % (11.7-14.6); RDW-SD 43.1 fL; WBC 6.67 10^3/uL (4.4-10.8)
[2025-04-23 11:29] LABS: Vitamin B12 423 pg/mL (211-911); Vitamin D 25 Total 45 ng/mL (30-100)
[2025-04-23] MEDS: Regadenoson 0.4 MG/5 ML SYR IVP (13:25)
[2025-04-23 15:04] LABS: ALT 22 U/L (10-49); AST 21 U/L (<34); Albumin 4.3 g/dL (3.2-5.0); Alkaline Phosphatase 69 U/L (46-116); Anion Gap 9.2 mmol/L (3-11); BUN 16 mg/dL (9-23); Bilirubin, Total 0.5 mg/dL (0.2-1.2); CO2 24.8 mmol/L (20.0-31.0); Calcium 9.2 mg/dL (8.3-10.6); Chloride 108 mmol/L (98-107); Cholesterol 200 mg/dL (<200); Glucose 79 mg/dL (74-106); HDL Cholesterol 54 mg/dL (>40); Potassium 3.6 mmol/L (3.5-5.1); Sodium 142 mmol/L (136-145); Total Protein 7.0 g/dL (5.7-8.2)
== END ==
LOC: DI 00:59
PROVIDERS: PCP Family Medicine; Visit Provider Family Medicine
DX: I25.119 Atherosclerotic heart disease of native coronary artery with unspecified angina pectoris (principal); Z12.2 Encounter for screening for malignant neoplasm of respiratory organs; F17.211 Nicotine dependence, cigarettes, in remission; E55.9 Vitamin D deficiency, unspecified; K29.60 Other gastritis without bleeding; D64.9 Anemia, unspecified; I10 Essential (primary) hypertension
CPT/HCPCS: 71271; 78452; 80053; 80061; 82306; 85027; 93016; 93018; 82607; 93017; J2785